=== PATIENT | female | born 1945 | race Caucasian/White ===

== ENCOUNTER 2017-02-20 19:09 | Inpatient (IN) | payer MEDICARE ==
[~2017-02-20] VITALS: Ht 162.6 cm; Wt 63.2 kg
[~2017-02-20 19:09] MED LIST: ALBU0.08 NEB; ASPI81TA82 PO; AZIT250T3 PO; PRED5TAB PO
[2017-02-20 19:11] VITALS: BP 174/86; PULSE 121; RESP 16; TEMP 98.9; O2SAT 96
[2017-02-20 21:15] VITALS: O2SAT 90
[2017-02-20] MEDS ORDERED: SODIUM CHLORIDE 0.9% FLUSH 10 ML FLUSH IVF PRN (21:15)
[2017-02-20 21:17] VITALS: BP 135/70; PULSE 104; RESP 20; O2SAT 95
--- NOTE | 2017-02-20 21:29 | PD ---
HPI Chief Complaint: Respiratory Symptoms Time Seen by Provider: 21:13 Travel History International Travel<30 days: No Contact w/Intl Traveler<30days: No Traveled to known affect area: No History of Present Illness HPI Patient is a 71-year-old female presenting to emergency for evaluation of a cough and shortness of breath. Patient was seen and evaluated at the urgent care center this afternoon and diagnosed with a large left pleural effusion and was advised to be admitted to the hospital at that time. Patient and his signing herself out AMA due to home issue she needed to settle. She presents now to be admitted. She states that her symptoms have been ongoing for 10 days , she denies any fevers but reports occasional nausea and episode of vomiting this morning. She does report feeling short of breath. She did see her primary doctor at the onset of these symptoms and was prescribed antibiotics and an albuterol inhaler. She states she felt better initially but began to feel sick again which is what prompted her visit to the urgent care center today. Patient denies any history of tobacco use, past medical history significant for vertigo and arthritis. PFSH Past Medical History Arthritis: Yes Heart Rhythm Problems: No Cardiac Catheterization: No Cardiovascular Problems: No High Cholesterol: No Congestive Heart Failure: No Diabetes: No Neurologic: Yes (vertigo) Past Surgical History Coronary Artery Bypass Graft: No Social History Alcohol Use: No Tobacco Use: No Substance Use: No Allergies-Medications (Allergen,Severity, Reaction): Coded Allergies: Iodine (Verified Allergy, Severe, Swelling, 02/20/17) Uncoded Allergies: CITRUS (Allergy, Severe, Swelling, 08/31/15) Reported Meds & Prescriptions Reported Meds & Active Scripts Active Reported Aspirin Children's (Aspirin) 81 Mg Chew 81 Mg CHEW DAILY Review of Systems Except as stated in HPI: all other systems reviewed are Neg General / Constitutional: No: Fever, Chills HENT: No: Headaches Cardiovascular: Positive: Dyspnea on exertion, No: Chest Pain or Discomfort Respiratory: Positive: Cough, Shortness of Breath Gastrointestinal: Positive: Nausea, Vomiting (1 episode this morning), No: Diarrhea, Abdominal Pain Genitourinary: No: Dysuria Musculoskeletal: No: Myalgias Neurologic: No: Weakness, Dizziness, Syncope, Focal Abnormalities Physical Exam Narrative GENERAL: Well-developed, well-nourished, alert elderly female. SKIN: Focused skin assessment warm/dry. HEAD: Atraumatic. Normocephalic. EYES: Pupils equal and round. No scleral icterus. No injection or drainage. ENT: No nasal bleeding or discharge. Mucous membranes pink and moist. NECK: Trachea midline. No JVD. CARDIOVASCULAR: Tachycardic. No murmur appreciated. RESPIRATORY: No accessory muscle use. Lungs sounds absent in left upper and lower lung young. GASTROINTESTINAL: Abdomen soft, non-tender, nondistended. Hepatic and splenic margins not palpable. MUSCULOSKELETAL: No obvious deformities. No clubbing. No cyanosis. No edema. NEUROLOGICAL: Awake and alert. No obvious cranial nerve deficits. Motor grossly within normal limits. Normal speech. PSYCHIATRIC: Appropriate mood and affect; insight and judgment normal. Data Data Last Documented VS Vital Signs Date Time Temp Pulse Resp B/P Pulse Ox O2 Delivery O2 Flow Rate FiO2 02/20/17:17 104 20 135/70 95 Nasal Cannula 2 02/20/17 19:11 98.9 Orders Complete Blood Count With Diff (02/20/17 21:05) Comprehensive Metabolic Panel (02/20/17 21:05) Act Partial Throm Time (Ptt) (02/20/17 21:05) Prothrombin Time / Inr (Pt) (02/20/17 21:05) Magnesium (Mg) (02/20/17 21:05) Blood Culture (02/20/17 21:05) Iv Access Insert/Monitor (02/20/17 21:05) Electrocardiogram (02/20/17 21:05) Ecg Monitoring (02/20/17 21:05) Oximetry (02/20/17 21:05) Oxygen Administration (02/20/17 21:05) Sodium Chloride 0.9% Flush (Ns Flush) (02/20/17 21:15) Ct Thorax/ Chest Wo Iv Contras (02/20/17 ) Lactic Acid (02/20/17 21:05) Troponin I (02/20/17 21:05) Ckmb (Isoenzyme) Profile (02/20/17 21:05) Admit Order (Ed Use Only) (02/20/17 22:40) Place In Observation (02/20/17 ) Vital Signs (Adult) Q4H (02/20/17 22:39) Activity Oob With Assistance (02/20/17 22:39) Senior Radiation Protection Technician / Telemetry .CONTINUOUS (02/20/17 22:39) Diet Heart Healthy (02/21/17 Breakfast) Sodium Chloride 0.9% Flush (Ns Flush) (02/20/17 22:45) Sodium Chloride 0.9% Flush (Ns Flush) (02/21/17 09:00) Basic Metabolic Panel (Bmp) (02/21/17 06:00) Complete Blood Count With Diff (02/21/17 06:00) Pt Request For Service (02/20/17 22:39) Case Management Consult (02/20/17 22:39) Naloxone Inj (Narcan Inj) (02/20/17 22:45) Us Guided Thoracentesis (02/20/17 ) Labs Laboratory Tests Test 02/20/17 21:20 White Blood Count 10.6 TH/MM3 Red Blood Count 4.11 MIL/MM3 Hemoglobin 11.7 GM/DL Hematocrit 35.5 % Mean Corpuscular Volume 86.4 FL Mean Corpuscular Hemoglobin 28.5 PG Mean Corpuscular Hemoglobin 32.9 % Concent Red Cell Distribution Width 14.1 % Platelet Count 305 TH/MM3 Mean Platelet Volume 7.7 FL Neutrophils (%) (Auto) 88.2 % Lymphocytes (%) (Auto) 6.3 % Monocytes (%) (Auto) 4.0 % Eosinophils (%) (Auto) 0.8 % Basophils (%) (Auto) 0.7 % Neutrophils # (Auto) 9.4 TH/MM3 Lymphocytes # (Auto) 0.7 TH/MM3 Monocytes # (Auto) 0.4 TH/MM3 Eosinophils # (Auto) 0.1 TH/MM3 Basophils # (Auto) 0.1 TH/MM3 CBC Comment DIFF FINAL Differential Comment Prothrombin Time 11.3 SEC Prothromb Time International 1.0 RATIO Ratio Activated Partial 24.0 SEC Thromboplast Time Sodium Level 138 MEQ/L Potassium Level 4.1 MEQ/L Chloride Level 104 MEQ/L Carbon Dioxide Level 23.8 MEQ/L Anion Gap 10 MEQ/L Blood Urea Nitrogen 20 MG/DL Creatinine 0.74 MG/DL Estimat Glomerular Filtration 77 ML/MIN Rate Random Glucose 145 MG/DL Lactic Acid Level 1.5 mmol/L Calcium Level 8.8 MG/DL Magnesium Level 2.0 MG/DL Total Bilirubin 0.3 MG/DL Aspartate Amino Transf 30 U/L (AST/SGOT) Alanine Aminotransferase 34 U/L (ALT/SGPT) Alkaline Phosphatase 140 U/L Total Creatine Kinase 63 U/L Troponin I 0.13 NG/ML Total Protein 7.3 GM/DL Albumin 3.2 GM/DL MDM Medical Decision Making Medical Screen Exam Complete: Yes Emergency Medical Condition: Yes Medical Record Reviewed: Yes Interpretation(s) Laboratory Tests Test 02/20/17 21:20 White Blood Count 10.6 TH/MM3 Red Blood Count 4.11 MIL/MM3 Hemoglobin 11.7 GM/DL Hematocrit 35.5 % Mean Corpuscular Volume 86.4 FL Mean Corpuscular Hemoglobin 28.5 PG Mean Corpuscular Hemoglobin 32.9 % Concent Red Cell Distribution Width 14.1 % Platelet Count 305 TH/MM3 Mean Platelet Volume 7.7 FL Neutrophils (%) (Auto) 88.2 % Lymphocytes (%) (Auto) 6.3 % Monocytes (%) (Auto) 4.0 % Eosinophils (%) (Auto) 0.8 % Basophils (%) (Auto) 0.7 % Neutrophils # (Auto) 9.4 TH/MM3 Lymphocytes # (Auto) 0.7 TH/MM3 Monocytes # (Auto) 0.4 TH/MM3 Eosinophils # (Auto) 0.1 TH/MM3 Basophils # (Auto) 0.1 TH/MM3 CBC Comment DIFF FINAL Differential Comment Prothrombin Time 11.3 SEC Prothromb Time International 1.0 RATIO Ratio Activated Partial 24.0 SEC Thromboplast Time Sodium Level 138 MEQ/L Potassium Level 4.1 MEQ/L Chloride Level 104 MEQ/L Carbon Dioxide Level 23.8 MEQ/L Anion Gap 10 MEQ/L Blood Urea Nitrogen 20 MG/DL Creatinine 0.74 MG/DL Estimat Glomerular Filtration 77 ML/MIN Rate Random Glucose 145 MG/DL Lactic Acid Level 1.5 mmol/L Calcium Level 8.8 MG/DL Magnesium Level 2.0 MG/DL Total Bilirubin 0.3 MG/DL Aspartate Amino Transf 30 U/L (AST/SGOT) Alanine Aminotransferase 34 U/L (ALT/SGPT) Alkaline Phosphatase 140 U/L Total Creatine Kinase 63 U/L Troponin I 0.13 NG/ML Total Protein 7.3 GM/DL Albumin 3.2 GM/DL Last Impressions Chest CT 02/20/17 0000 Signed Impressions: Service Date/Time: Ambrosio, February 20, 2017 21:32 - CONCLUSION: 1. Large left pleural effusion and left upper lobe and left lower lobe atelectasis. Thoracentesis with reimaging recommended. 2. 6 mm nodule right lower lobe. Lauro Mccabe MD Vital Signs Date Time Temp Pulse Resp B/P Pulse Ox O2 Delivery O2 Flow Rate FiO2 02/20/17 20:03 20 02/20/17 19:11 98.9 121 16 174/86 96 Room Air Differential Diagnosis Pleural effusion versus pneumothorax versus malignancy versus cardiac arrhythmia versus electrolyte abnormality versus other Narrative Course Patient is a 71-year-old female presenting to the emergency department after being evaluated by an urgent care center earlier this afternoon. Patient was diagnosed with large left pleural effusion and was advised to be transferred to the ER at that time however she needs to go home to take care her affairs. She presents at this time with a nonproductive cough that has been ongoing for 10 days initially treated with outpatient antibiotics and albuterol inhaler. She has no significant past medical history, she has never used tobacco products. Labs and imaging ordered and pending. Patient is tachycardic on the monitor. CBC with no elevation in white blood cell count, slight left shift. Lactic acid 1.5 Troponin 0.13 Chemistry is otherwise unremarkable, coags are unremarkable. Patient placed on oxygen via nasal cannula at 2 L, heart rate is 100-104. Patient is resting comfortably in no acute distress. Dr. Patel accepted admission, orders placed. Diagnosis Primary Impression: Pleural effusion, left Additional Impressions: Cough Elevated troponin level Lung nodule seen on imaging study Admitting Information Admitting Physician Requests: Admit Condition: Stable Daniella Lobo February 20, 2017 21:29
--- NOTE | 2017-02-20 21:55 | RADRPT ---
EXAM DATE/TIME: 02/20/2017 21:32 [facility] COMPARISON: No previous studies available for comparison. INDICATIONS : Pleural effusion. RADIATION DOSE: 4.11 CTDIvol (mGy) MEDICAL HISTORY : None SURGICAL HISTORY : None. ENCOUNTER: Initial ACUITY: 1 day PAIN SCALE: 0/10 LOCATION: Bilateral chest TECHNIQUE: Volumetric scanning of the chest was performed. Using automated exposure control and adjustment of t he mA and/or kV according to patient size, radiation dose was kept as low as reasonably achievable to obtain optimal diagnostic quality images. FINDINGS: LUNGS: There is no consolidation or pneumothorax. 6 mm nodule right lower lobe abutting the medial pleura. PLEURAE: Large left pleural effusion. There is no pleural thickening or pleural effusion on the right. MEDIASTINUM: The heart and great vessels demonstrate no acute abnormality. There is no mediastinal or hilar lymph adenopathy. AXILLAE: Within normal limits. No lymphadenopathy. MUSCULOSKELETAL: Within normal limits for patient age. MISCELLANEOUS: The visualized upper abdominal organs demonstrate no acute abnormality. CONCLUSION: 1. Large left pleural effusion and left upper lobe and left lower lobe atelectasis. Thoracentesis wit h reimaging recommended. 2. 6 mm nodule right lower lobe. Lauro Mccabe MD on February 20, 2017 at 21:51 Board Certified Radiologist. This report was verified electronically.
[2017-02-20 21:59] LABS: AUTOMATED NEUTROPHIL # 9.4 TH/MM3 (1.8-7.7); BASOPHIL # 0.1 TH/MM3 (0-0.2); BASOPHIL % 0.7 % (0.0-2.0); EOSINOPHIL # 0.1 TH/MM3 (0-0.4); EOSINOPHIL % 0.8 % (0.0-4.0); HEMATOCRIT 35.5 % (35.0-46.0); HEMO FLAGS DIFF FINAL; LYMPH % 6.3 % (9.0-44.0); LYMPHOCYTE # 0.7 TH/MM3 (1.0-4.8); MEAN CELL VOLUME 86.4 FL (80.0-100.0); MEAN CORPUSCULAR HEMOGLOBIN 28.5 PG (27.0-34.0); MEAN CORPUSCULAR HGB CONC 32.9 % (32.0-36.0); NEUT % 88.2 % (16.0-70.0); PLATELET COUNT 305 TH/MM3 (150-450); PROTHROMBIN TIME - PATIENT 11.3 SEC (9.8-11.6); RED BLOOD COUNT 4.11 MIL/MM3 (4.00-5.30); RED CELL DISTRIBUTION WIDTH 14.1 % (11.6-17.2); WHITE BLOOD COUNT 10.6 TH/MM3 (4.0-11.0)
[2017-02-20 22:00] VITALS: BP 167/83; PULSE 104; RESP 28; O2SAT 93
[2017-02-20] MEDS ORDERED: ASPI81CH7 CHEW (22:00)
[2017-02-20 22:10] LABS: ANION GAP 10 MEQ/L (5-15); AST (GOT) 30 U/L (15-37); BICARBONATE 23.8 MEQ/L (21.0-32.0); BLOOD UREA NITROGEN 20 MG/DL (7-18); CHLORIDE 104 MEQ/L (98-107); GLOMERULAR FILTRATION RATE 77 ML/MIN (>89); POTASSIUM 4.1 MEQ/L (3.5-5.1); SODIUM (NA) 138 MEQ/L (136-145)
[2017-02-20 22:15] LABS: ALKALINE PHOSPHATASE 140 U/L (45-117); ALT (GPT) 34 U/L (10-53); TOTAL BILIRUBIN ADULT 0.3 MG/DL (0.2-1.0)
[2017-02-20 22:23] LABS: CREATINE KINASE 63 U/L (26-192)
[2017-02-20] MEDS ORDERED: SODIUM CHLORIDE 0.9% FLUSH 10 ML FLUSH IV FLUSH PRN (22:45)
[2017-02-20] MEDS ORDERED: NALOXONE HCL 0.4 MG/ML AMP IV PRN (22:45)
[2017-02-20 23:00] VITALS: BP 136/73; PULSE 97; RESP 18; O2SAT 93
[2017-02-21] VITALS (18 sets, daily range): BP systolic 93–165; BP diastolic 55–78; PULSE 81–116; RESP 16–25; TEMP 97.8–99; O2SAT 88–98
--- NOTE | 2017-02-21 02:50 | HHI.HP ---
HPI Service [facility] Hospitalists Primary Care Physician Jose Ansari MD Admission Diagnosis LEFT PLEURAL EFFUSION Diagnoses: Chief Complaint: Cough Travel History International Travel<30 Days: No Contact w/Intl Traveler <30 Da: No Traveled to Known Affected Are: No History of Present Illness History from patient, ER physician communication, and review of medical records. Patient reported that about 10 days ago, she started coughing and not feeling well. She reports that she was also sneezing with nasal discharge which she thought was allergies. She stated she went to her doctor and was given antibiotics azithromycin. She was also given steroids. States he felt slightly better but yesterday, the cough and shortness of rest has gotten extremely worse. She stated she went to the urgent care of [place]. Over there, she had a chest x-ray done. She was told from there to come immediately to the hospital because of the chest x-ray findings. Exam patient denies fever. denies sputum production. She does however report that she was having some nausea medicines because every time she eats something, she felt like throwing up. Denies any asymmetric leg swelling. She states that last night though, her symptoms were so terrible that she had to sit up in bed to sleep. 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 While lying onto her right side, patient is quite comfortable and able to talk. However as soon as she gets up, she is constantly coughing in the middle of her sentences. She was also noted to be short of breath during these episodes. SKIN: No rashes, ecchymoses or lesions. Cool and dry. HEAD: Atraumatic. Normocephalic. No temporal or scalp tenderness. EYES: No scleral icterus. No injection or drainage. ENT: Nose without bleeding, purulent drainage or septal hematoma. Airway patent. NECK: Trachea midline. No JVD Supple, nontender, no meningeal signs. CARDIOVASCULAR: Regular rate and rhythm without murmurs, gallops, or rubs. RESPIRATORY: Clear to auscultation. Breath sounds equal bilaterally. No wheezes , rales, or rhonchi. GASTROINTESTINAL: Abdomen soft, non-tender, nondistended. No guarding. MUSCULOSKELETAL: Extremities without clubbing, cyanosis, or edema. No calf tenderness. NEUROLOGICAL: Awake and alert. Motor and sensory grossly within normal limits Normal speech. Laboratory Laboratory Tests Test 02/20/17 21:20 White Blood Count 10.6 Red Blood Count 4.11 Hemoglobin 11.7 Hematocrit 35.5 Mean Corpuscular Volume 86.4 Mean Corpuscular Hemoglobin 28.5 Mean Corpuscular Hemoglobin 32.9 Concent Red Cell Distribution Width 14.1 Platelet Count 305 Mean Platelet Volume 7.7 Neutrophils (%) (Auto) 88.2 Lymphocytes (%) (Auto) 6.3 Monocytes (%) (Auto) 4.0 Eosinophils (%) (Auto) 0.8 Basophils (%) (Auto) 0.7 Neutrophils # (Auto) 9.4 Lymphocytes # (Auto) 0.7 Monocytes # (Auto) 0.4 Eosinophils # (Auto) 0.1 Basophils # (Auto) 0.1 CBC Comment DIFF FINAL Differential Comment Prothrombin Time 11.3 Prothromb Time International 1.0 Ratio Activated Partial 24.0 Thromboplast Time Sodium Level 138 Potassium Level 4.1 Chloride Level 104 Carbon Dioxide Level 23.8 Anion Gap 10 Blood Urea Nitrogen 20 Creatinine 0.74 Estimat Glomerular Filtration 77 Rate Random Glucose 145 Lactic Acid Level 1.5 Calcium Level 8.8 Magnesium Level 2.0 Total Bilirubin 0.3 Aspartate Amino Transf 30 (AST/SGOT) Alanine Aminotransferase 34 (ALT/SGPT) Alkaline Phosphatase 140 Total Creatine Kinase 63 Troponin I 0.13 Total Protein 7.3 Albumin 3.2 Date/Time Procedure Status Source Growth 02/20/17 21:25 Aerobic Blood Culture Received Blood Peripheral Pending 02/20/17 21:25 Anaerobic Blood Culture Received Blood Peripheral Pending Result Diagram: 02/20/17211902/20/172119 Imaging Last [address] 02/20/17 0000 Signed Impressions: Service Date/Time: Monday, February 20, 2017 21:32 - CONCLUSION: 1. Large left pleural effusion and left upper lobe and left lower lobe atelectasis. Thoracentesis with reimaging recommended. 2. 6 mm nodule right lower lobe. Lauro Mccabe MD Assessment and Plan Assessment and Plan Impression: Large left pleural effusion Dyspneasecondary to above Elevated troponinlikely due to dyspnea. Patient denies any chest pain. Incidental finding of 6 mm lung nodule. Outpatient follow-up closely particularly with this large pleural effusion History of vertigo Mister arthritis History of allergy/bronchitis "all my life" Plan: Oxygen supplementation. Planned ultrasound guided thoracocentesis in a.m. We'll send pleural fluid for diagnostic purposes well. Including cytology and cultures. Hold aspirin due to upcoming procedure. We'll need to resume it by tomorrow. DVT prophylaxiswith SCD. Discussed Condition With Patient, ER physician, patient's nurse Fantasma Patel MD February 21, 2017 02:50
[2017-02-21 07:57] LABS: AUTOMATED NEUTROPHIL # 5.4 TH/MM3 (1.8-7.7); BASOPHIL # 0.1 TH/MM3 (0-0.2); BASOPHIL % 1.1 % (0.0-2.0); EOSINOPHIL # 0.4 TH/MM3 (0-0.4); EOSINOPHIL % 5.6 % (0.0-4.0); HEMATOCRIT 31.6 % (35.0-46.0); HEMO FLAGS DIFF FINAL; LYMPH % 12.7 % (9.0-44.0); LYMPHOCYTE # 0.9 TH/MM3 (1.0-4.8); MEAN CELL VOLUME 86.5 FL (80.0-100.0); MEAN CORPUSCULAR HEMOGLOBIN 28.3 PG (27.0-34.0); MEAN CORPUSCULAR HGB CONC 32.8 % (32.0-36.0); MONO % 7.5 % (0.0-8.0); NEUT % 73.1 % (16.0-70.0); PLATELET COUNT 274 TH/MM3 (150-450); RED BLOOD COUNT 3.66 MIL/MM3 (4.00-5.30); WHITE BLOOD COUNT 7.3 TH/MM3 (4.0-11.0)
[2017-02-21 08:03] LABS: BICARBONATE 23.7 MEQ/L (21.0-32.0); POTASSIUM 3.8 MEQ/L (3.5-5.1)
[2017-02-21] MEDS ORDERED: SODIUM CHLORIDE 0.9% FLUSH 10 ML FLUSH IV FLUSH SCH (09:00)
--- NOTE | 2017-02-21 10:06 | RADRPT ---
EXAM DATE/TIME: 02/21/2017 09:40 [facility] COMPARISON: CHEST PA & LAT, February 20, 2017, 17:06. INDICATIONS : Post left thoracentesis. MEDICAL HISTORY : None. SURGICAL HISTORY : None. ENCOUNTER: Subsequent ACUITY: 1 day PAIN SCORE: 0/10 LOCATION: Bilateral chest FINDINGS: A single frontal expiratory view of the chest was performed. Left upper lobe airspace disease. Left b asilar consolidation/atelectasis. Right lung clear. No evidence of pneumothorax. Mediastinal struct ures are in the midline. Left-sided pleural effusion has been evacuated. The cardio-mediastinal contours and bronchopulmonary markings are unremarkable for an expiratory exam . Osseous structures are intact. CONCLUSION: 1. No pneumothorax status post left-sided thoracentesis. 2. Left upper lobe airspace disease. 3. Left basilar atelectasis. Lauro Mccabe MD on February 21, 2017 at 10:03 Board Certified Radiologist. This report was verified electronically.
[2017-02-21] MEDS ORDERED: ACETAMINOPHEN 325 MG TAB PO PRN ×2 (11:00)
[2017-02-21] MEDS ORDERED: MAGNESIUM HYDROXIDE SUSP 30 ML CUP PO PRN (11:00)
[2017-02-21] MEDS ORDERED: SODIUM CHLORIDE 0.9% FLUSH 10 ML FLUSH IV FLUSH PRN (11:00)
[2017-02-21 11:01] LABS: PLEURAL FLUID LYMPHS 66 %
[2017-02-21] MEDS: ONDANSETRON HCL 4 MG/2 ML VIAL IVP PRN (11:36)
[2017-02-21] MEDS ORDERED: RESP: ALBUTEROL 2.5 MG/IPRATROPIUM 0.5 MG NEB (PRN) NEB (12:00)
[2017-02-21 12:09] LABS: BLOOD GAS BASE EXCESS -4.3 mmol/L (-2-2); BLOOD GAS CARBOXYHEMOGLOBIN 1.3 % (0-4); BLOOD GAS HCO3 19 mmol/L (22-26); BLOOD GAS METHEMOGLOBIN 0.6 % (0-2); BLOOD GAS O2 HGB SATURATION 93 % (90-100); BLOOD GAS OXYGEN CONTENT 17.3 Vol % (12.0-20.0); BLOOD GAS PCO2 30 mmHg (38-42); BLOOD GAS PO2 70 mmHG (61-120); BLOOD GAS TOTAL HGB 13.3 G/DL (12.0-16.0); CRITICAL VALUE NO; DRAW SITE RT RADIAL; LITER FLOW 6 L/M; NUMBER OF ARTERIAL PUNCTURES 1; OXYGEN DEVICE SIMPLE MASK; STAT YES; TEMP CORR TO 98.6; ULNAR PULSE PRESENT
--- NOTE | 2017-02-21 12:14 | HHI.PR ---
Subjective Remarks Follow-up for pleural effusion and shortness of breath. The patient states that she had been feeling short of breath with pressure on her chest. She had thoracentesis done today. She feels that the chest pressure was significantly improved after thoracentesis. However since the thoracentesis, she is reporting increased work in breathing. O2 saturation was 88% on 4 L O2. Discuss[address] with Dr. Alejo, RN, RT, and [facility] nurse, the plan to transfer to [facility] on BiPAP. Objective Vitals Vital Signs Date Time Temp Pulse Resp B/P Pulse Ox O2 Delivery O2 Flow Rate FiO2 02/21/17 11:35 99.0 116 20 107/72 88 02/21/17 10:55 95 Nasal Cannula 3.00 02/21/17 10:25 99 20 162/69 96 02/21/17 10:10 101 16 165/78 96 02/21/17 09:55 98.6 97 16 145/72 96 02/21/17 09:00 98.0 97 20 130/75 93 02/21/17 08:10 81 02/21/17 07:04 98.4 85 18 118/70 91 02/21/17 04:25 97.8 98 17 139/78 94 02/21/17 01:53 110 02/21/17 01:41 97.9 109 18 152/72 96 02/20/17 23:00 97 18 136/73 93 Room Air 02/20/17 22:00 104 28 167/83 93 Room Air 02/20/17 21:17 104 20 135/70 95 Nasal Cannula 2 02/20/17 21:15 90 Room Air 02/20/17 21:15 95 Nasal Cannula 2 02/20/17 20:03 20 02/20/17 19:11 98.9 121 16 174/86 96 Room Air Result Diagram: 02/21/17 0715 02/21/17 0715 Imaging Last Impressions Chest X-Ray 02/21/17 0000 Signed Impressions: Service Date/Time: Tuesday, February 21, 2017 09:40 - CONCLUSION: 1. No pneumothorax status post left-sided thoracentesis. 2. Left upper lobe airspace disease. 3. Left basilar atelectasis. Lauro Mccabe MD Chest CT 02/20/17 0000 Signed Impressions: Service Date/Time: Monday, February 20, 2017 21:32 - CONCLUSION: 1. Large left pleural effusion and left upper lobe and left lower lobe atelectasis. Thoracentesis with reimaging recommended. 2. 6 mm nodule right lower lobe. Lauro Mccabe MD Objective Remarks GENERAL: Well-developed well-nourished. In mild acute distress. Mildly labored breathing. SKIN: Warm and dry. No lesions noted. HEENT: Normocephalic. Pupils equal and round. Mucous membranes pink and moist. CARDIOVASCULAR: Regular rate and rhythm. No murmur appreciated. RESPIRATORY: Clear to auscultation on the right. Coarse crackles in left lung base. GASTROINTESTINAL: Abdomen soft, non-tender, nondistended. Bowel sounds x4. MUSCULOSKELETAL: No obvious deformities. No clubbing or cyanosis. No edema. NEUROLOGICAL: Awake and alert. No focal neurological deficits. Moves upper and lower extremities spontaneously. Normal speech. PSYCHIATRIC: Appropriate mood and affect; insight and judgment normal. A/P Assessment and Plan 71-year-old female with no significant past medical history who presented for shortness breath and pleural effusion diagnosed at outpatient urgent care Pleural effusion Shortness of breath Acute respiratory failure Imaging personally reviewed: Initial chest CT showed large left pleural effusion. Chest x-ray after thoracentesis showed left-sided atelectasis with no pneumothorax. Stat Chest x-ray during respiratory distress shows increasing edema on the left. Labs reviewed: No leukocytosis. Lactic acid 1.5. Pleural fluid with 2000 WBCs , 9000 RBCs, LDH 1000. -Consulted pulmonology -BiPAP for edema. Supplemental oxygen as needed. -Check d-dimer, BNP, serum LDH, ABG -Check echo -Nebs as needed -Acapella and incentive spirometry -Follow up further fluid studies, cultures, cytology Elevated troponin: 0.13, 0.09, trending. EKG reviewed with no ischemic changes. Nonspecific, possibly secondary to shortness of breath as above. Monitor on telemetry. DVT prophylaxis: SCDs Attending Statement The exam, history, and the medical decision-making described in the above note were completed with the assistance of the mid-level provider. I reviewed and agree with the findings presented. I attest that I had a [id number] encounter with the patient on the same day, and personally performed and documented my assessment and findings in the medical record. patient seen 02/21/17 around 4 PM. She says she is feeling better, shortness of breath improving. Crackles on the left lung. Reexpansion pulmonary edema. Suspected pulmonary embolism appreciate pulmonary assistance. Close monitoring in ICU. Jan Weems February 21, 2017 12:14 Ari Alejo MD February 22, 2017 08:50
--- NOTE | 2017-02-21 12:43 | RADRPT ---
EXAM DATE/TIME: 02/21/2017 12:00 [facility] COMPARISON: CHEST EXPIRATION ONLY, February 21, 2017, 9:40. INDICATIONS : Post left side thoracentesis, short of breath. MEDICAL HISTORY : None. SURGICAL HISTORY : None. ENCOUNTER: Initial ACUITY: 1 day PAIN SCORE: 0/10 LOCATION: Bilateral chest FINDINGS: A single view of the chest demonstrates extensive consolidation throughout the left lung. No pneumoth orax. Heart normal size. Osseous structures are intact. CONCLUSION: Extensive left lung consolidation. Lauro Mccabe MD on February 21, 2017 at 12:40 Board Certified Radiologist. This report was verified electronically.
--- NOTE | 2017-02-21 13:37 | EKG ---
Date Performed: 02/20/2017 Time Performed: 21:42:42 PTAGE: 71 years EKG: Sinus rhythm NONSPECIFIC T-WAVE ABNORMALITY BORDERLINE ECG PREVIOUS TRACING : 08/31/2015 16.19 Compared to prior tracing no significant change DOCTOR: Jose Mendoza Interpretating Date/Time 02/21/2017 13:35:42
--- NOTE | 2017-02-21 15:24 | RADRPT ---
EXAM DATE/TIME: 02/21/2017 08:21 [facility] COMPARISON: No previous studies available for comparison. INDICATIONS : Pleural effusion. MEDICAL HISTORY : Arthritis. Vertigo. SURGICAL HISTORY : Appendectomy. Tonsillectomy. ENCOUNTER: Initial ACUITY: 2 weeks PAIN SCORE: 0/10 LOCATION: Left chest FLUID: Total volume of 3000 cc of cloudy, red fluid was removed. Fluid was sent to lab for ordered studies. TECHNIQUE: 1. Ultrasound guidance for thoracentesis. 2. Thoracentesis. The risks, benefits, and alternatives to ultrasound guided thoracentesis were explained to the patien t in lay simple terms, including the risk of bleeding and infection. Written and verbal informed con sent was obtained. Appropriate area for thoracentesis was marked under ultrasound guidance with the patient in the uprig ht position. Overlying skin was prepped and draped in the usual sterile fashion and with local anest hetic, a dermatotomy was made with an 11 blade scalpel. A 6 Yoruba thoracentesis catheter was placed in the pleural space and fluid was removed. Catheter was then removed and a sterile dressing applie d. There were no immediate complications. The patient tolerated the procedure well and the left the ultrasound suite in stable condition. Chest radiograph is to be obtained. CONCLUSION: Uncomplicated ultrasound guided thoracentesis. Lauro Mccabe MD on February 21, 2017 at 15:22 Board Certified Radiologist. This report was verified electronically.
[2017-02-21] MEDS: HEPARIN-D5W INJ 250 ML IV SCH (15:26)
[2017-02-21] MEDS ORDERED: CHLORHEXIDINE GLUCONATE 2 % 1 PACK (2 CLOTHS)(extra cloths) TOPICAL PRN (15:30)
[2017-02-21 15:44] LABS: HEMATOCRIT 38.8 % (35.0-46.0); MEAN CELL VOLUME 85.7 FL (80.0-100.0); MEAN CORPUSCULAR HEMOGLOBIN 28.3 PG (27.0-34.0); MEAN CORPUSCULAR HGB CONC 33.1 % (32.0-36.0); PLATELET COUNT 313 TH/MM3 (150-450); RED BLOOD COUNT 4.52 MIL/MM3 (4.00-5.30); RED CELL DISTRIBUTION WIDTH 14.2 % (11.6-17.2); REVIEW FLAG FINAL; WHITE BLOOD COUNT 17.8 TH/MM3 (4.0-11.0)
[2017-02-21 15:55] LABS: APTT (PATIENT) 23.4 SEC (24.3-30.1); INTERNATIONAL NORMALIZED RATIO 1.1 RATIO; PROTHROMBIN TIME - PATIENT 11.7 SEC (9.8-11.6)
[2017-02-21 17:03] LABS: BLOOD GAS BASE EXCESS -3.7 mmol/L (-2-2); BLOOD GAS CARBOXYHEMOGLOBIN 1.5 % (0-4); BLOOD GAS HCO3 20 mmol/L (22-26); BLOOD GAS METHEMOGLOBIN 1.2 % (0-2); BLOOD GAS O2 HGB SATURATION 92 % (90-100); BLOOD GAS OXYGEN CONTENT 16.5 Vol % (12.0-20.0); BLOOD GAS PCO2 33 mmHg (38-42); BLOOD GAS PO2 74 mmHg (61-120); BLOOD GAS TOTAL HGB 12.8 G/DL (12.0-16.0); CRITICAL VALUE NO; DRAW SITE RT RADIAL; LITER FLOW 5 L/M; NUMBER OF ARTERIAL PUNCTURES 1; OXYGEN DEVICE NASAL CANNULA; STAT YES; TEMP CORR TO 98.6; ULNAR PULSE PRESENT
--- NOTE | 2017-02-21 20:00 | EC ---
Study Study Date:02/21/2017 STUDY CONCLUSIONS SUMMARY - Left ventricle: The cavity size was normal. Wall thickness was normal. Systolic function was vigorous. The estimated ejection fraction was in the range of 65% to 70%. Wall motion was normal; there were no regional wall motion abnormalities. - Aortic valve: Valve area: 2.73cm^2(VTI). Valve area: 2.87cm^2 (Vmax). If LV function is below 40, please consider prescribing an ACEI or ARB or document rationale for non-use. PROCEDURE DATA STUDY STATUS: Elective. Procedure: Transthoracic echocardiography. Image quality was poor. Scanning was performed from the parasternal, apical, and subcostal acoustic windows. Study completion: The patient tolerated the procedure well. Transthoracic echocardiography. M-mode, complete 2D, complete spectral Doppler, and color Doppler. Height: Height: 64in. Weight: Weight: 142.7lb. Body mass index: BMI: 24.5kg/m^2. Body surface area: BSA: 1.7m^2. Patient status: Inpatient. CARDIAC ANATOMY LEFT VENTRICLE: The cavity size was normal. Wall thickness was normal. Systolic function was vigorous. The estimated ejection fraction was in the range of 65% to 70%. Wall motion was normal; there were no regional wall motion abnormalities. AORTIC VALVE: Trileaflet; normal thickness leaflets. Doppler: Transvalvular velocity was within the normal range. There was no stenosis. No regurgitation. Valve area: 2.73cm^2(VTI). Indexed valve area: 1.61cm^2/m^2 (VTI). Valve area: 2.87cm^2 (Vmax). Indexed valve area: 1.69cm^2/m^2 (Vmax). Mean gradient: 2mm Hg (S). AORTA: Aortic root: The aortic root was normal in size. MITRAL VALVE: Structurally normal valve. Doppler: Transvalvular velocity was within the normal range. There was no evidence for stenosis. Trace regurgitation. LEFT ATRIUM: The atrium was normal in size. RIGHT VENTRICLE: The cavity size was normal. Wall thickness was normal. PULMONIC VALVE: Doppler: Transvalvular velocity was within the normal range. There was no evidence for stenosis. No regurgitation. TRICUSPID VALVE: Structurally normal valve. Doppler: Transvalvular velocity was within the normal range. No regurgitation. PULMONARY ARTERY: The main pulmonary artery was normal-sized. Systolic pressure was within the normal range. RIGHT ATRIUM: The atrium was normal in size. PERICARDIUM: There was no pericardial effusion. SYSTEMIC VEINS: Inferior vena cava: The vessel was normal in size. Patient weight: 142.7lb _Ejection fraction:_ 65-75% _Fractional shortening:_ 32% up to 5Kg 5-11.5Kg 11.6-22.9Kg 23-45Kg 45-57Kg Aortic Root 7-13 <17 13-22 17-27 17-27 LA diam 6-13 <23 24-38 33-47 37-40 RVID 10-17 7-15 7-15 7-18 8-17 LVIDd 12-22 <32 24-38 33-47 37-40 LVPW 2-4 3-6 5-7 6-8 7-8 IVS 2-4 3-6 5-7 6-8 7-8 BASIC MEASUREMENTS ADULT NORMAL Left ventricle LV internal dimension, ED, chordal *32.6 mm 43-52 level, PLAX LV internal dimension, ES, chordal *20.6 mm 23-38 level, PLAX Fractional shortening, chordal level, 37 % >29 PLAX LV posterior wall thickness, ED 9.93 mm IVS/LVPW ratio, ED 1 <1.3 Ventricular septum Septal thickness, ED 9.9 mm Aortic valve Leaflet separation 19 mm 15-26 Aorta Root diameter, ED 25 mm Left atrium Anterior-posterior dimension 22 mm Anterior-posterior dimension index 1.29 cm/m^2 <2.2 BASIC MEASUREMENTS ADULT NORMAL Aortic valve Leaflet separation 19 mm 15-26 DOPPLER MEASUREMENTS ADULT NORMAL Main pulmonary artery Pressure, S 30 mm Hg =30 Aortic valve Peak velocity, S 82.7 cm/s Mean velocity, S 62.7 cm/s VTI, S 13 cm Mean gradient, S 2 mm Hg Valve area, VTI 2.73 cm^2 Valve area index, VTI 1.61 cm^2/m^2 Valve area, Vmax 2.87 cm^2 Valve area index, Vmax 1.69 cm^2/m^2 Mitral valve Peak E-wave velocity 28.2 cm/s Peak A-wave velocity 78 cm/s Peak E/A ratio 0.4 Tricuspid valve Regurgitant peak velocity 236 cm/s Peak RV-RA gradient, S 22 mm Hg Maximal regurgitant velocity 236 cm/s Systemic veins Estimated CVP 10 mm Hg Right ventricle RV pressure, S *32 mm Hg <30 Pulmonic valve Peak velocity, S 72.9 cm/s LEGEND: Mean values are shown as u=mean value. Asterisk (*) bell values outside specified normal range. Prepared and signed by Diamond Mosley [id number]
[2017-02-21] MEDS: VANCOMYCIN INJ 1,000 MG in SODIUM CHLOR 0.9% 250 ML INJ 250 ML IV SCH (20:25)
[2017-02-21] MEDS: PIPERACIL-TAZO 3.375 GM PREMIX 50 ML IV SCH (20:26)
[2017-02-21] MEDS: SODIUM CHLORIDE 0.9% FLUSH 10 ML FLUSH IV FLUSH SCH (20:26)
[2017-02-21] MEDS: predniSONE 50 MG TAB PO SCH (20:26)
[2017-02-21 22:05] LABS: APTT (PATIENT) 29.3 SEC (24.3-30.1)
--- NOTE | 2017-02-21 23:30 | RADRPT ---
EXAM DATE/TIME: 02/21/2017 22:54 [facility] COMPARISON: No previous studies available for comparison. INDICATIONS : Bilateral leg swelling. MEDICAL HISTORY : Arthritis. Vertigo. Pleural effusion. Shortness of breath. SURGICAL HISTORY : Appendectomy.Tonsillectomy. ENCOUNTER: Initial ACUITY: 1 day PAIN SCORE: 0/10 LOCATION: Bilateral legs. TECHNIQUE: Venous ultrasound of the left and right leg was performed from the inguinal ligament to the proximal calf. Real-time, color Doppler and spectral tracing, compression and augmentation techniques were us ed. FINDINGS: RIGHT LEG: There is normal compressibility of the deep venous system from the inguinal region to the proximal ca lf. No echogenic clot is seen in the lumen of the common femoral, femoral, popliteal, and posterior tibial veins. There is a normal response of the venous system to proximal and distal augmentation an d respiration. LEFT LEG: There is normal compressibility of the deep venous system from the inguinal region to the proximal ca lf. No echogenic clot is seen in the lumen of the common femoral, femoral, popliteal, and posterior tibial veins. There is a normal response of the venous system to proximal and distal augmentation an d respiration. CONCLUSION: No evidence of deep venous thrombosis. Hernan Moncada MD on February 21, 2017 at 23:27 Board Certified Radiologist. This report was verified electronically.
[2017-02-22] VITALS (14 sets, daily range): BP systolic 102–125; BP diastolic 54–74; PULSE 60–98; RESP 20–26; TEMP 97.6–98.3; O2SAT 96–97
[2017-02-22] MEDS: PIPERACIL-TAZO 3.375 GM PREMIX 50 ML IV SCH ×4 (02:21→19:52)
[2017-02-22] MEDS: predniSONE 50 MG TAB PO SCH ×2 (02:21→08:09)
[2017-02-22] MEDS: CHLORHEXIDINE GLUCONATE 2 % 1 PACK (2 CLOTHS)(taper/protocol) TOPICAL SCH (04:00)
[2017-02-22 05:12] LABS: APTT (PATIENT) 65.4 SEC (24.3-30.1)
[2017-02-22] MEDS ORDERED: diphenhydrAMINE HCL 50 MG CAP PO ONE (08:00)
[2017-02-22] MEDS: VANCOMYCIN INJ 1,000 MG in SODIUM CHLOR 0.9% 250 ML INJ 250 ML IV SCH ×2 (08:00→19:52)
[2017-02-22] MEDS: SODIUM CHLORIDE 0.9% FLUSH 10 ML FLUSH IV FLUSH SCH ×2 (08:09→19:53)
[2017-02-22] MEDS ORDERED: IOHEXOL 350 MG/ML 10 ML VIAL (for RAD DIAG) IV ONE (09:49)
--- NOTE | 2017-02-22 09:54 | MB ---
cc: ROMI TORRES MD DATE OF CONSULTATION 02/21/[address] Alejo. REASON FOR CONSULTATION Evaluate for pneumonia and pleural effusion. HISTORY OF THE PRESENT ILLNESS Ms. Cross is a pleasant 71-year-old female who has not been feeling well for the last two month or so. She attributes it to her cough, cold and allergy. She says she is very prone to allergies but over the last ten days she was having cough and congestion. Started bringing up small amounts of sputum. She saw her physician Dr. Ansari and was given Z-Salazar. She did feel a little bit better with the steroids and antibiotics but over the last two days she is getting much worse. More congestion, more short of breath. Did not have any fever. With these symptoms she came to the hospital. She had a workup done. She had a CT scan of the chest done which showed a large pleural effusion with left lower lobe atelectasis and possible infiltrate. LABORATORY DATA Her CBC showed WBC count 17.8, hemoglobin 12.8, hematocrit 38.8, MCV 85, platelet count 313. Her INR is 1.2. Her sodium 138, potassium 3.8, chloride 106, CO2 23, BUN 20, creatinine 0.60. Blood gas pH 7.40, pCO2 33, PCO2 74, bicarb 20. Saturation 92% on 5 liters nasal cannula. Her blood culture is negative. She went for an ultrasound-guided thoracentesis. Her pleural fluid is exudate in nature with protein 5.0 and LDH 1083. Gram stain of the pleural fluid is negative so far. PAST MEDICAL HISTORY Her past medical history is significant for: 1. History of allergies. 2. Arthritis. 3. Vertigo. 4. Tonsillectomy. 5. And appendectomy. MEDICATIONS She is currently takin. Benadryl 50 mg. 2. Prednisone 50 mg q.6-hour. 3. Albuterol/Atrovent nebulizer treatment. ALLERGIES SHE IS ALLERGIC TO CITRUS AND IODINE. SOCIAL HISTORY She is a . 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 No history of smoking or alcohol abuse. FAMILY HISTORY She has one son. REVIEW OF SYSTEMS Normally she is up, around and active. Weight is stable. No headache or dizziness. No hemoptysis. No DVT or pulmonary embolism. No malignancy. PHYSICAL EXAMINATION GENERAL: Reveals a pleasant elderly female not in acute distress. VITAL SIGNS: Blood pressure 93/55, heart rate 103, respirations 20, temperature 97.8. HEENT: Pupils are equal and reactive to light. Oral mucosa, nasal mucosa normal. NECK: Supple. JVP not raised. CHEST: She has slightly decreased breath sounds on the right side. Has a few rales. CARDIOVASCULAR: S1, S2 normal. ABDOMEN: Benign. EXTREMITIES: No edema. IMPRESSION 1. Large right pleural effusion, likely parapneumonic. She has exudative pleural effusion, culture so far negative. 2. Lung infiltrate. 3. Atelectasis. 4. Rhinitis. PLAN I discussed with the patient we will check a pleural fluid culture and cytology. In the meantime we will start her on IV Zosyn and vancomycin pending the cultures. Supplement her oxygen to keep her saturation greater than 92%. Further treatment will depend on the course in the hospital. Thank you Dr. Alejo for this consultation. MD CORINE Power/ELADIO /7:37 PM /9:50 AM
--- NOTE | 2017-02-22 10:42 | RADRPT ---
EXAM DATE/TIME: 02/22/2017 09:31 [facility] COMPARISON: CT THORAX W/O CONTRAST, February 20, 2017, 21:32. INDICATIONS : Shortness of breath. IV CONTRAST: 85 cc Omnipaque 350 (iohexol) IV RADIATION DOSE: 23.03 CTDIvol (mGy) MEDICAL HISTORY : None SURGICAL HISTORY : Appendectomy. ENCOUNTER: Initial ACUITY: 1 day PAIN SCALE: 0/10 LOCATION: chest TECHNIQUE: Volumetric scanning of the chest was performed using a pulmonary embolism protocol MIP images were re constructed. Using automated exposure control and adjustment of the mA and/or kV according to patien t size, radiation dose was kept as low as reasonably achievable to obtain optimal diagnostic quality images. FINDINGS: Patchy airspace disease is present in the left lung ; better visualized following thoracentesis. Tra ce fluid remains. There is no axillary adenopathy. There is very minimal nonspecific mediastinal adenopathy There is no evidence for central pulmonary emboli. There is increasing ascites The portion of the liver and spleen identified are free of focal defects CONCLUSION: Significant airspace disease in the left lung, probably inflammatory. Neoplastic pro cess is also consideration. There is no evidence of central pulmonary emboli. Avery Nolan MD FACR on February 22, 2017 at 10:15 Board Certified Radiologist. This report was verified electronically.
[2017-02-22 11:14] LABS: APTT (PATIENT) 59.1 SEC (24.3-30.1)
[2017-02-22] MEDS: HEPARIN-D5W INJ 250 ML IV SCH (13:06)
--- NOTE | 2017-02-22 14:35 | HHI.PR ---
Subjective Remarks Follow-up for pulmonary edema. Patient denies any chest pain. She continues to complain of a "little" shortness of breath. She reports a cough with clear yellow sputum. She had a small bowel movement. She wants to eat lunch. Objective Vitals Vital Signs Date Time Temp Pulse Resp B/P Pulse Ox O2 Delivery O2 Flow Rate FiO2 02/22/17 14:00 63 02/22/17 12:00 60 02/22/17 12:00 98.3 60 20 97 02/22/17 11:00 97 Nasal Cannula 4.00 02/22/17 10:00 76 02/22/17 08:00 66 02/22/17 08:00 97.6 66 20 108/63 97 02/22/17 06:00 81 02/22/17 04:00 98.0 79 102/62 96 02/22/17 04:00 79 02/22/17 02:00 81 02/22/17 00:00 87 02/22/17 00:00 98.1 87 125/59 97 02/21/17 22:00 94 02/21/17 20:03 95 Nasal Cannula 4.00 02/21/17 20:00 98.3 109 113/66 97 02/21/17 20:00 109 02/21/17 18:00 100 02/21/17 16:06 98 Simple Mask 7.00 02/21/17 16:00 97.8 103 25 93/55 98 02/21/17 16:00 103 I/O 02/21/17 02/21/17 02/21/17 02/22/17 02/22/17 02/22/17 07:00 15:00 23:00 07:00 15:00 23:00 Intake Total 5277 ml 565 ml 397 ml Output Total 300 ml 300 ml 350 ml Balance 4977 ml 265 ml 47 ml Intake Oral 4880 ml 400 ml 200 ml IV Total 397 ml 165 ml 197 ml Output Urine Total 300 ml 300 ml 350 ml Result Diagram: 02/21/17 1510 02/21/17 [address] Angiography 02/22/17 0000 Signed Impressions: Service Date/Time: Wednesday, February 22, 2017 09:31 - CONCLUSION: Significant airspace disease in the left lung, probably inflammatory. Neoplastic process is also consideration. There is no evidence of central pulmonary emboli. Avery Nolan MD FACR Thoracentesis Ultrasound 02/21/17 0000 Signed Impressions: Service Date/Time: Tuesday, February 21, 2017 08:21 - CONCLUSION: Uncomplicated ultrasound guided thoracentesis. Lauro Mccabe MD Lower Extremity Ultrasound 02/21/17 Signed Impressions: Service Date/Time: Tuesday, February 21, 2017 22:54 - CONCLUSION: No evidence of deep venous thrombosis. Hernan Moncada MD Chest X-Ray 02/21/17 Signed Impressions: Service Date/Time: Tuesday, February 21, 2017 12:00 - CONCLUSION: Extensive left lung consolidation. Lauro Mccabe MD Chest CT 02/20/17 Signed Impressions: Service Date/Time: Monday, February 20, 2017 21:32 - CONCLUSION: 1. Large left pleural effusion and left upper lobe and left lower lobe atelectasis. Thoracentesis with reimaging recommended. 2. 6 mm nodule right lower lobe. Lauro Mccabe MD Objective Remarks GENERAL: Well-developed well-nourished. In no acute distress. SKIN: Warm and dry. No lesions noted. HEENT: Normocephalic. Pupils equal and round. Mucous membranes pink and moist. CARDIOVASCULAR: Regular rate and rhythm. No murmur appreciated. RESPIRATORY: No accessory muscle use. Left basilar crackles. GASTROINTESTINAL: Abdomen soft, non-tender, nondistended. Bowel sounds x4. MUSCULOSKELETAL: No obvious deformities. No clubbing or cyanosis. No edema. NEUROLOGICAL: Awake and alert. No focal neurological deficits. Moves upper and lower extremities spontaneously. Normal speech. PSYCHIATRIC: Appropriate mood and affect; insight and judgment normal. A/P Assessment and Plan 71-year-old female with no significant past medical history who presented for shortness breath and pleural effusion diagnosed at outpatient urgent care Pleural effusion Shortness of breath S/P acute respiratory failure Likely reexpansion pulmonary edema s/p thoracentesis Imaging personally reviewed: Initial chest CT showed large left pleural effusion. Chest x-ray after after thoracentesis showed left-sided atelectasis with no pneumothorax. Repeat chest x-ray showed increasing edema on the left. Pulmonary angiogram negative for PE, can see she shows significant air space disease in the left lung; inflammatory vs neoplastic. Echocardiogram with normal systolic function, EF 65%. Labs reviewed: Leukocytosis. Lactic acid 1.5. Pleural fluid with 2000 WBCs, 9000 RBCs, LDH 1000. D-dimer elevated. Pro-calcitonin within normal limits. Elevated LDH -Consulted pulmonology, started the patient on IV antibiotics -Supplemental oxygen as needed. -Nebs as needed -Acapella and incentive spirometry -Follow up further fluid studies, cultures, cytology -Repeat chest x-ray in the a.m. -Follow up repeat labs today Elevated troponin: 0.13, 0.09, 0.05. EKG reviewed with no ischemic changes. Nonspecific, possibly secondary to shortness of breath and effusion as above. Monitor on telemetry. DVT prophylaxis: SCDs Discharge Planning Stable for transfer to the floor. If symptoms are secondary to reexpansion pulmonary edema, anticipate patient will continue to improve for possible discharge soon. She will need to follow up outpatient for cytology results. Attending Statement The exam, history, and the medical decision-making described in the above note were completed with the assistance of the mid-level provider. I reviewed and agree with the findings presented. I attest that I had a [id number] encounter with the patient on the same day, and personally performed and documented my assessment and findings in the medical record.patient seen on date of service. Says she is feeling a little better. appears to be breathing more comfortably. Continue antibiotics. Follow up cytology. Appreciate pulmonary assistance. Transfer to floor. Jan Weems February 22, 2017 14:35 rAi Alejo MD February 25, 2017 11:53
[2017-02-22 17:08] LABS: AUTOMATED NEUTROPHIL # 9.1 TH/MM3 (1.8-7.7); BASOPHIL % 0.2 % (0.0-2.0); HEMATOCRIT 33.2 % (35.0-46.0); HEMO FLAGS DIFF FINAL; LYMPH % 4.8 % (9.0-44.0); LYMPHOCYTE # 0.5 TH/MM3 (1.0-4.8); MEAN CELL VOLUME 85.9 FL (80.0-100.0); MEAN CORPUSCULAR HEMOGLOBIN 28.2 PG (27.0-34.0); MEAN CORPUSCULAR HGB CONC 32.8 % (32.0-36.0); MONO % 2.6 % (0.0-8.0); NEUT % 92.4 % (16.0-70.0); PLATELET COUNT 295 TH/MM3 (150-450); RED BLOOD COUNT 3.87 MIL/MM3 (4.00-5.30); RED CELL DISTRIBUTION WIDTH 14.2 % (11.6-17.2); WHITE BLOOD COUNT 9.9 TH/MM3 (4.0-11.0)
--- NOTE | 2017-02-22 17:15 | HHI.PR ---
Subjective Remarks 71 YOWF with large pl eff, s/p TC 3L fluid removed Pl fluid exudative Breathing better CTA patchy left lung infilt Objective Vital Signs Vital Signs Date Time Temp Pulse Resp B/P Pulse Ox O2 Delivery O2 Flow Rate FiO2 02/22/17 16:00 84 02/22/17 16:00 97.7 84 26 102/54 96 02/22/17 14:00 63 02/22/17 12:00 60 02/22/17 12:00 98.3 60 20 97 02/22/17 11:00 97 Nasal Cannula 4.00 02/22/17 10:00 76 02/22/17 08:00 66 02/22/17 08:00 97.6 66 20 108/63 97 02/22/17 06:00 81 02/22/17 04:00 98.0 79 102/62 96 02/22/17 04:00 79 02/22/17 02:00 81 02/22/17 00:00 87 02/22/17 00:00 98.1 87 125/59 97 02/21/17 22:00 94 02/21/17 20:03 95 Nasal Cannula 4.00 02/21/17 20:00 98.3 109 113/66 97 02/21/17 20:00 109 02/21/17 18:00 100 I/O 02/21/17 02/21/17 02/21/17 02/22/17 02/22/17 02/22/17 07:00 15:00 23:00 07:00 15:00 23:00 Intake Total 5277 ml 565 ml 397 ml Output Total 300 ml 300 ml 350 ml Balance 4977 ml 265 ml 47 ml Intake Oral 4880 ml 400 ml 200 ml IV Total 397 ml 165 ml 197 ml Output Urine Total 300 ml 300 ml 350 ml Result Diagram: 02/22/17 1642 02/21/17 0715 Objective Remarks GENERAL: MBMN female, NAD SKIN: Warm and dry. HEAD: Normocephalic. EYES: No scleral icterus. No injection or drainage. NECK: Supple, trachea midline. No JVD or lymphadenopathy. CARDIOVASCULAR: Regular rate and rhythm without murmurs, gallops, or rubs. RESPIRATORY: Breath sounds equal bilaterally. No accessory muscle use. GASTROINTESTINAL: Abdomen soft, non-tender, nondistended. MUSCULOSKELETAL: No cyanosis, or edema. BACK: Nontender without obvious deformity. No CVA tenderness. A/P Assessment and Plan Pleural effusion, s/p TC Pl fluid exudative Lung infilt, inflamation vs infection Malig not ruled out PLAN: Cont Abx Check pl fluid cytolgy and cultures Will need rpt CT 4 weeks If infilt persists, will need bx Kiel Kessler MD February 22, 2017 17:15
[2017-02-22 17:31] LABS: ALKALINE PHOSPHATASE 97 U/L (45-117); ALT (GPT) 20 U/L (10-53); ANION GAP 10 MEQ/L (5-15); AST (GOT) 16 U/L (15-37); BICARBONATE 24.8 MEQ/L (21.0-32.0); BLOOD UREA NITROGEN 18 MG/DL (7-18); CHLORIDE 102 MEQ/L (98-107); GLOMERULAR FILTRATION RATE 68 ML/MIN (>89); POTASSIUM 4.1 MEQ/L (3.5-5.1); SODIUM (NA) 137 MEQ/L (136-145); TOTAL BILIRUBIN ADULT 0.2 MG/DL (0.2-1.0)
[2017-02-23] VITALS (10 sets, daily range): BP systolic 98–148; BP diastolic 51–78; PULSE 65–98; RESP 16–20; TEMP 96.7–98.9; O2SAT 93–99
[2017-02-23] MEDS: PIPERACIL-TAZO 3.375 GM PREMIX 50 ML IV SCH ×4 (02:23→20:24)
[2017-02-23] MEDS: CHLORHEXIDINE GLUCONATE 2 % 1 PACK (2 CLOTHS)(taper/protocol) TOPICAL SCH (04:00)
[2017-02-23] MEDS: SODIUM CHLORIDE 0.9% FLUSH 10 ML FLUSH IV FLUSH SCH ×2 (08:56→20:24)
[2017-02-23 09:15] LABS: APTT (PATIENT) 49.2 SEC (24.3-30.1)
--- NOTE | 2017-02-23 09:17 | RADRPT ---
EXAM DATE/TIME: 02/23/2017 08:52 [facility] COMPARISON: CHEST SINGLE AP, February 21, 2017, 12:00. INDICATIONS : Cough, short of breath. MEDICAL HISTORY : None. SURGICAL HISTORY : None. ENCOUNTER: Subsequent ACUITY: 2 weeks PAIN SCORE: 0/10 LOCATION: Bilateral chest FINDINGS: The cardiac silhouette is enlarged in transverse diameter. There is left lower lobe pneumonia with pa rtial clearing in the left mid lung. The right lung is free of acute parenchymal opacity. The aortic knob is prominent with tortuosity of the descending thoracic aorta. CONCLUSION: 1. Improvement in the previously seen left lower lobe pneumonia Adolph Tate MD on February 23, 2017 at 9:15 Board Certified Radiologist. This report was verified electronically.
--- NOTE | 2017-02-23 09:28 | HHI.FF ---
Face to Face Verification Diagnosis: (1) Pleural effusion, left (2) Cough (3) Lung nodule seen on imaging study (4) Generalized weakness Physical Therapy Order: Evaluate and Treat Home Health Nursing Order: Nursing assessment with vital signs I have seen patient Yolanda Cross on 02/23/17. My clinical findings support the need for the requested home health care services because: Deconditioned w/ increased weakness I certify that my clinical findings support that this patient is homebound because: Unsafe to leave home unassisted Ari Alejo MD February 23, 2017 09:28
[2017-02-23] MEDS ORDERED: OXYGENTANK NAS.CANULA (09:29)
[2017-02-23] MEDS ORDERED: NEBUKIT5 (09:31)
[2017-02-23] MEDS: VANCOMYCIN INJ 1,000 MG in SODIUM CHLOR 0.9% 250 ML INJ 250 ML IV SCH ×2 (09:43→20:24)
[2017-02-23] MEDS: INSULIN ASPART SUPPLEMENTAL SCALE SQ SCH ×3 (13:34→20:52)
[2017-02-23] MEDS ORDERED: SODIUM CHLOR 0.9% 250 ML INJ 250 ML IV PRN (15:15)
--- NOTE | 2017-02-23 19:17 | HHI.PR ---
Subjective Remarks patient seen this morning around 11 AM. Says she is feeling better. Feels like she might be able to go home tomorrow. Denies any chest pain. Shortness of breath improved. Almost off oxygen. Objective Vital Signs Date Time Temp Pulse Resp B/P Pulse Ox O2 Delivery O2 Flow Rate FiO2 02/23/17 18:09 93 21 02/23/17 16:27 97.9 90 18 108/58 93 02/23/17 12:59 98.1 78 18 98/51 94 02/23/17 10:37 71 02/23/17 08:35 95 Nasal Cannula 3.00 02/23/17 08:28 96.9 88 16 107/57 94 02/23/17 04:00 96.7 75 18 116/69 94 02/23/17 02:00 65 02/23/17 00:00 92 02/23/17 00:00 98.4 92 20 137/78 99 02/22/17 22:00 81 02/22/17 21:01 96 Nasal Cannula 4.00 02/22/17 20:00 83 02/22/17 20:00 97.7 83 20 105/74 96 I/O 02/22/17 02/22/17 02/22/17 02/23/17 02/23/17 02/23/17 07:00 15:00 23:00 07:00 15:00 23:00 Intake Total 565 ml 397 ml 256 ml 240 ml 360 ml Output Total 300 ml 350 ml 400 ml 200 ml Balance 265 ml 47 ml -144 ml 240 ml 160 ml Intake Oral 400 ml 200 ml 240 ml 360 ml IV Total 165 ml 197 ml 256 ml Output Urine Total 300 ml 350 ml 400 ml 200 ml # Voids 1 # Bowel Movements 0 0 Result Diagram: 02/22/17 1642 02/22/17 1642 Objective Remarks GENERAL: patient sitting up in bed. Appears more comfortable than yesterday. Alert and oriented 3. SKIN: Warm and dry. HEAD: Normocephalic. EYES: No scleral icterus. No injection or drainage. NECK: Supple, trachea midline. No JVD or lymphadenopathy. CARDIOVASCULAR: Regular rate and rhythm without murmurs, gallops, or rubs. RESPIRATORY: Breath sounds equal bilaterally. No accessory muscle use. GASTROINTESTINAL: Abdomen soft, non-tender, nondistended. MUSCULOSKELETAL: No cyanosis, or edema. BACK: Nontender without obvious deformity. No CVA tenderness. A/P Assessment and Plan 71-year-old female with no significant past medical history who presented for shortness breath and pleural effusion diagnosed at outpatient urgent care Pleural effusion Shortness of breath S/P acute respiratory failure Likely reexpansion pulmonary edema s/p thoracentesis Imaging personally reviewed: Initial chest CT showed large left pleural effusion. Chest x-ray after after thoracentesis showed left-sided atelectasis with no pneumothorax. Repeat chest x-ray showed increasing edema on the left. Pulmonary angiogram negative for PE, can see she shows significant air space disease in the left lung; inflammatory vs neoplastic. Echocardiogram with normal systolic function, EF 65%. Labs reviewed: Leukocytosis. Lactic acid 1.5. Pleural fluid with 2000 WBCs, 9000 RBCs, LDH 1000. D-dimer elevated. Pro-calcitonin within normal limits. Elevated LDH -Consulted pulmonology, started the patient on IV antibiotics -Supplemental oxygen as needed. -Nebs as needed -Acapella and incentive spirometry -Follow up further fluid studies, cultures, cytology -Repeat chest x-ray improved. pulanh vasquez. appreciate assist. //elevated blood glucose. a1c pending. ISS Elevated troponin: 0.13, 0.09, 0.05. EKG reviewed with no ischemic changes. Nonspecific, possibly secondary to shortness of breath and effusion as above. Monitor on telemetry. DVT prophylaxis: SCDs Discharge Planning home with home PT, pending oxygen evaluation and pulmonary clearance. Ari Alejo MD February 23, 2017 19:17
--- NOTE | 2017-02-23 19:53 | HHI.PR ---
Subjective Remarks 71 YOWF with large pl eff, s/p TC 3L fluid removed Pl fluid exudative Breathing better CTA patchy left lung infilt Up in chair Objective Vital Signs Vital Signs Date Time Temp Pulse Resp B/P Pulse Ox O2 Delivery O2 Flow Rate FiO2 02/23/17 18:09 93 21 02/23/17 16:27 97.9 90 18 108/58 93 02/23/17 12:59 98.1 78 18 98/51 94 02/23/17 10:37 71 02/23/17 08:35 95 Nasal Cannula 3.00 02/23/17 08:28 96.9 88 16 107/57 94 02/23/17 04:00 96.7 75 18 116/69 94 02/23/17 02:00 65 02/23/17 00:00 92 02/23/17 00:00 98.4 92 20 137/78 99 02/22/17 22:00 81 02/22/17 21:01 96 Nasal Cannula 4.00 02/22/17 20:00 83 02/22/17 20:00 97.7 83 20 105/74 96 I/O 02/22/17 02/22/17 02/22/17 02/23/17 02/23/17 02/23/17 07:00 15:00 23:00 07:00 15:00 23:00 Intake Total 565 ml 397 ml 256 ml 240 ml 360 ml Output Total 300 ml 350 ml 400 ml 200 ml Balance 265 ml 47 ml -144 ml 240 ml 160 ml Intake Oral 400 ml 200 ml 240 ml 360 ml IV Total 165 ml 197 ml 256 ml Output Urine Total 300 ml 350 ml 400 ml 200 ml # Voids 1 # Bowel Movements 0 0 Result Diagram: 02/22/17 1642 02/22/17 1642 Objective Remarks GENERAL: MBMN female, NAD SKIN: Warm and dry. HEAD: Normocephalic. EYES: No scleral icterus. No injection or drainage. NECK: Supple, trachea midline. No JVD or lymphadenopathy. CARDIOVASCULAR: Regular rate and rhythm without murmurs, gallops, or rubs. RESPIRATORY: Breath sounds equal bilaterally. No accessory muscle use. GASTROINTESTINAL: Abdomen soft, non-tender, nondistended. MUSCULOSKELETAL: No cyanosis, or edema. BACK: Nontender without obvious deformity. No CVA tenderness. A/P Assessment and Plan Pleural effusion, s/p TC Pl fluid exudative Lung infilt, inflamation vs infection Malig not ruled out PLAN: Cont Abx Check pl fluid cytolgy and cultures Will need rpt CT 4 weeks If infilt persists, will need bx DC Plans underway. Kiel Kessler MD February 23, 2017 19:53
[2017-02-23] MEDS: HEPARIN SODIUM - SQ 10,000 UNITS/ML VIAL SQ SCH (20:24)
[2017-02-23 22:20] LABS: HEMOGLOBIN A1a 1.1 %; HEMOGLOBIN A1b 1.9 %; HEMOGLOBIN Ao 82.6 %; HEMOGLOBIN P3 6.2 %
[2017-02-23] MEDS: ONDANSETRON HCL 4 MG/2 ML VIAL IVP PRN (22:25)
[2017-02-24] VITALS: BP 137/64; PULSE 78; RESP 18; TEMP 98; O2SAT 95
[2017-02-24] MEDS: PIPERACIL-TAZO 3.375 GM PREMIX 50 ML IV SCH ×3 (01:52→15:33)
[2017-02-24 04:00] VITALS: BP 111/59; PULSE 87; RESP 18; TEMP 98.6; O2SAT 91
[2017-02-24] MEDS: CHLORHEXIDINE GLUCONATE 2 % 1 PACK (2 CLOTHS)(taper/protocol) TOPICAL SCH (04:24)
[2017-02-24] MEDS: INSULIN ASPART SUPPLEMENTAL SCALE SQ SCH ×2 (06:31→11:00)
[2017-02-24 08:00] VITALS: BP 107/59; PULSE 80; PULSE 83; RESP 18; TEMP 98.9; O2SAT 93
[2017-02-24] MEDS: VANCOMYCIN INJ 1,000 MG in SODIUM CHLOR 0.9% 250 ML INJ 250 ML IV SCH (08:27)
[2017-02-24] MEDS: HEPARIN SODIUM - SQ 10,000 UNITS/ML VIAL SQ SCH (08:28)
[2017-02-24] MEDS: SODIUM CHLORIDE 0.9% FLUSH 10 ML FLUSH IV FLUSH SCH (08:28)
[2017-02-24] MEDS ORDERED: AUGM875T PO (10:39)
[2017-02-24] MEDS ORDERED: IPRASOL NEB (10:39)
--- NOTE | 2017-02-24 10:49 | HHI.PR ---
Subjective Remarks patient feeling well. no cp or sob. says she feels well, wants to go home Objective Vital Signs Date Time Temp Pulse Resp B/P Pulse Ox O2 Delivery O2 Flow Rate FiO2 02/24/17 08:00 98.9 83 18 107/59 93 02/24/17 08:00 80 02/24/17 04:00 98.6 87 18 111/59 91 02/24/17 04:00 87 02/24/17 00:00 98.0 78 18 137/64 95 02/23/17 20:00 98.9 98 18 148/64 94 02/23/17 18:09 93 21 02/23/17 16:27 97.9 90 18 108/58 93 02/23/17 12:59 98.1 78 18 98/51 94 I/O 02/23/17 02/23/17 02/23/17 02/24/17 02/24/17 02/24/17 07:00 15:00 23:00 07:00 15:00 23:00 Intake Total 240 ml 360 ml 720 ml Output Total 200 ml Balance 240 ml 160 ml 720 ml Intake Oral 240 ml 360 ml 360 ml IV Total 360 ml Output Urine Total 200 ml # Voids 3 # Bowel Movements 0 Result Diagram: 02/22/17 1642 02/22/17 1642 Imaging Last Impressions Chest X-Ray 02/23/17 0800 Signed Impressions: Service Date/Time: February 08:52 - CONCLUSION: 1. Improvement in the previously seen left lower lobe pneumonia Adolph Tate MD CT Angiography 02/22/17 0000 Signed Impressions: Service Date/Time: Wednesday, February 22, 2017 09:31 - CONCLUSION: Significant airspace disease in the left lung, probably inflammatory. Neoplastic process is also consideration. There is no evidence of central pulmonary emboli. Avery Nolan MD FACR Thoracentesis Ultrasound 02/21/17 0000 Signed Impressions: Service Date/Time: Tuesday, February 21, 2017 08:21 - CONCLUSION: Uncomplicated ultrasound guided thoracentesis. Lauro Mccabe MD Lower Extremity Ultrasound 02/21/17 0000 Signed Impressions: Service Date/Time: Tuesday, February 21, 2017 22:54 - CONCLUSION: No evidence of deep venous thrombosis. Hernan Moncada MD Chest CT 02/20/17 0000 Signed Impressions: Service Date/Time: Monday, February 20, 2017 21:32 - CONCLUSION: 1. Large left pleural effusion and left upper lobe and left lower lobe atelectasis. Thoracentesis with reimaging recommended. 2. 6 mm nodule right lower lobe. Lauro Mccabe MD Objective Remarks GENERAL: patient sitting up in bed. NAD. Alert and oriented 3. SKIN: Warm and dry. HEAD: Normocephalic. EYES: No scleral icterus. No injection or drainage. NECK: Supple, trachea midline. No JVD or lymphadenopathy. CARDIOVASCULAR: Regular rate and rhythm without murmurs, gallops, or rubs. RESPIRATORY: Breath sounds equal bilaterally. No accessory muscle use. no crackles today GASTROINTESTINAL: Abdomen soft, non-tender, nondistended. MUSCULOSKELETAL: No cyanosis, or edema. BACK: Nontender without obvious deformity. No CVA tenderness. A/P Assessment and Plan 71-year-old female with no significant past medical history who presented for shortness breath and pleural effusion diagnosed at outpatient urgent care Pleural effusion Shortness of breath S/P acute respiratory failure Likely reexpansion pulmonary edema s/p thoracentesis Imaging personally reviewed: Initial chest CT showed large left pleural effusion. Chest x-ray after after thoracentesis showed left-sided atelectasis with no pneumothorax. Repeat chest x-ray showed increasing edema on the left. Pulmonary angiogram negative for PE, can see she shows significant air space disease in the left lung; inflammatory vs neoplastic. Echocardiogram with normal systolic function, EF 65%. Labs reviewed: Leukocytosis. Lactic acid 1.5. Pleural fluid with 2000 WBCs, 9000 RBCs, LDH 1000. D-dimer elevated. Pro-calcitonin within normal limits. Elevated LDH -Consulted pulmonology, started the patient on IV antibiotics -Supplemental oxygen as needed. -Nebs as needed -Acapella and incentive spirometry -Follow up further fluid studies, cultures, cytology -Repeat chest x-ray improved. pulanh vasquez. appreciate assist. -02/24 d/w Dr sams in pulmonology. recommends DC home with [email or web address] days, followup with him for results from biopsy. d/w pt, who conveys understanding. //steroid induced hyperglycemia //Prediabetes -a1c 6.5 - prediabetes. was elevated due to steroids given for premed. improved off steroids ISS Elevated troponin: 0.13, 0.09, 0.05. EKG reviewed with no ischemic changes. Nonspecific, possibly secondary to shortness of breath and effusion as above. likely demand related. no CP. f/u PCP. DVT prophylaxis: SCDs Discharge Planning home with home PT, pending oxygen evaluation and pulmonary clearance. Ari Alejo MD February 24, 2017 10:49
--- NOTE | 2017-02-24 10:51 | HHI.DS ---
Discharge Summary Admission Date February 21, 2017 at 12:05 Discharge Date: February 24, 2017 Admitting Diagnosis LEFT PLEURAL EFFUSION (1) Pleural effusion, left ICD Code: J90 (2) Lung nodule seen on imaging study ICD Code: R91.1 (3) Generalized weakness ICD Code: R53.1 Procedures thoracentesis. please see results. Brief History - From Admission History from patient, ER physician communication, and review of medical records. Patient reported that about 10 days ago, she started coughing and not feeling well. She reports that she was also sneezing with nasal discharge which she thought was allergies. She stated she went to her doctor and was given antibiotics azithromycin. She was also given steroids. States he felt slightly better but yesterday, the cough and shortness of rest has gotten extremely worse. She stated she went to the urgent care of [place]. Over there, she had a chest x-ray done. She was told from there to come immediately to the hospital because of the chest x-ray findings. Exam patient denies fever. denies sputum production. She does however report that she was having some nausea medicines because every time she eats something, she felt like throwing up. Denies any asymmetric leg swelling. She states that last night though, her symptoms were so terrible that she had to sit up in bed to sleep. CBC/BMP: 02/22/17 1642 02/22/17 1642 Significant Findings Laboratory Tests Test 02/21/17 02/21/17 02/21/17 02/21/17 12:00 13:30 15:10 16:52 Blood Gas HCO3 19 mmol/L 20 mmol/L (22-26) (22-26) Blood Gas Base Excess -4.3 mmol/L -3.7 mmol/L (-2-2) (-2-2) Arterial Blood pH 7.43 (7.380-7.420) Arterial Blood Partial 30 mmHg (38-42) 33 mmHg (38-42) Pressure CO2 D-Dimer Quantitative (PE/DVT) 12.96 MG/L FEU (0.00-0.50) White Blood Count 17.8 TH/MM3 (4.0-11.0) Prothrombin Time 11.7 SEC (9.8-11.6) Activated Partial 23.4 SEC Thromboplast Time (24.3-30.1) Test 02/22/17 02/22/17 02/22/17 02/23/17 04:36 10:45 16:42 08:17 Activated Partial 65.4 SEC 59.1 SEC 49.2 SEC Thromboplast Time (24.3-30.1) (24.3-30.1) (24.3-30.1) Red Blood Count 3.87 MIL/MM3 (4.00-5.30) Hemoglobin 10.9 GM/DL (11.6-15.3) Hematocrit 33.2 % (35.0-46.0) Neutrophils (%) (Auto) 92.4 % (16.0-70.0) Lymphocytes (%) (Auto) 4.8 % (9.0-44.0) Neutrophils # (Auto) 9.1 TH/MM3 (1.8-7.7) Lymphocytes # (Auto) 0.5 TH/MM3 (1.0-4.8) Estimat Glomerular Filtration 68 ML/MIN (>89) Rate Random Glucose 312 MG/DL (74-106) Total Protein 6.3 GM/DL (6.4-8.2) Albumin 2.4 GM/DL (3.4-5.0) Hemoglobin A1c 6.4 % (4.3-6.0) Imaging Last Impressions Chest X-Ray 02/23/17 0800 Signed Impressions: Service Date/Time: February 08:52 - CONCLUSION: 1. Improvement in the previously seen left lower lobe pneumonia Adolph Tate MD CT Angiography 02/22/17 0000 Signed Impressions: Service Date/Time: Wednesday, February 22, 2017 09:31 - CONCLUSION: Significant airspace disease in the left lung, probably inflammatory. Neoplastic process is also consideration. There is no evidence of central pulmonary emboli. Avery Nolan MD FACR Thoracentesis Ultrasound 02/21/17 0000 Signed Impressions: Service Date/Time: Tuesday, February 21, 2017 08:21 - CONCLUSION: Uncomplicated ultrasound guided thoracentesis. Lauro Mccabe MD Lower Extremity Ultrasound 02/21/17 0000 Signed Impressions: Service Date/Time: Tuesday, February 21, 2017 22:54 - CONCLUSION: No evidence of deep venous thrombosis. Hernan Moncada MD Chest CT 02/20/17 0000 Signed Impressions: Service Date/Time: Monday, February 20, 2017 21:32 - CONCLUSION: 1. Large left pleural effusion and left upper lobe and left lower lobe atelectasis. Thoracentesis with reimaging recommended. 2. 6 mm nodule right lower lobe. Lauro Mccabe MD PE at Discharge GENERAL: Well-developed well-nourished. In no acute distress. SKIN: Warm and dry. No lesions noted. HEENT: Normocephalic. Pupils equal and round. Mucous membranes pink and moist. CARDIOVASCULAR: Regular rate and rhythm. No murmur appreciated. RESPIRATORY: No accessory muscle use. Left basilar crackles. GASTROINTESTINAL: Abdomen soft, non-tender, nondistended. Bowel sounds x4. MUSCULOSKELETAL: No obvious deformities. No clubbing or cyanosis. No edema. NEUROLOGICAL: Awake and alert. No focal neurological deficits. Moves upper and lower extremities spontaneously. Normal speech. PSYCHIATRIC: Appropriate mood and affect; insight and judgment normal. Hospital Course 71-year-old female with no significant past medical history who presented for shortness breath and pleural effusion diagnosed at outpatient urgent care Pleural effusion Shortness of breath S/P acute respiratory failure Likely reexpansion pulmonary edema s/p thoracentesis Imaging personally reviewed: Initial chest CT showed large left pleural effusion. Chest x-ray after after thoracentesis showed left-sided atelectasis with no pneumothorax. Repeat chest x-ray showed increasing edema on the left. Pulmonary angiogram negative for PE, can see she shows significant air space disease in the left lung; inflammatory vs neoplastic. Echocardiogram with normal systolic function, EF 65%. Labs reviewed: Leukocytosis. Lactic acid 1.5. Pleural fluid with 2000 WBCs, 9000 RBCs, LDH 1000. D-dimer elevated. Pro-calcitonin within normal limits. Elevated LDH -Consulted pulmonology, started the patient on IV antibiotics -Supplemental oxygen as needed. -Nebs as needed -Acapella and incentive spirometry -Follow up further fluid studies, cultures, cytology -Repeat chest x-ray improved. pulanh vasquez. appreciate assist. -02/24 d/w Dr sams in pulmonology. recommends DC home with [email or web address] days, followup with him for results from biopsy. d/w pt, who conveys understanding. //steroid induced hyperglycemia //Prediabetes -a1c 6.5 - prediabetes. was elevated due to steroids given for premed. improved off steroids ISS Elevated troponin: 0.13, 0.09, 0.05. EKG reviewed with no ischemic changes. Nonspecific, possibly secondary to shortness of breath and effusion as above. likely demand related. no CP. f/u PCP. DVT prophylaxis: SCDs Pt Condition on Discharge: Good Discharge Disposition: Discharge Home Discharge Time: > 30 minutes Discharge Instructions DIET: Follow Instructions for: As Tolerated, No Restrictions Activities you can perform: Regular-No Restrictions Other Activity Instructions: do not fly in airplane until cleared by pulmonology. Follow up Referrals: PCP Follow-up - 1 Week with Jose Ansari MD Pulmonology - 1 Week with Kiel Sams MD New Medications: Amoxicillin-Clavulanate (Augmentin) 875-125 mg Tab 875 MG PO BID not for use in CrCl <30 ml/min. Infection #14 Ref 0 TAB Nebulizer Kit/Tubing/Mout (Nebulizer Kit/Tubing/Mout) 1 Kit Kit 1 KIT .ROUTE DIRECTED Breathing Treatment #1 Ref 0 KIT Oxygen tank (Oxygen tank) 1 Ea Tank 2 LITER MISA.CANULA CONTINUOUS Oxygen Concentrator Portable Gaseous 2 L/min via Nasal Cannula Continuous For 99 months HYPOXEMIA PREVENTION #2 CYLINDER Ipratropium-Albuterol Neb (Duoneb) 0.5-2.5 Mg/3 Ml Neb 1 AMPULE NEB Q4HR NEB PRN SOB/WHEEZING Days 30 ML Discontinued Medications: Aspirin (Aspirin Children's) 81 Mg Chew 81 MG CHEW DAILY Ref 0 TAB Ari Alejo MD February 24, 2017 10:51
--- NOTE | 2017-02-24 11:50 | HHI.PR ---
Subjective Remarks 71 YOWF with large pl eff, s/p TC 3L fluid removed Pl fluid exudative Breathing better CTA patchy left lung infilt Ambulates Objective Vital Signs Vital Signs Date Time Temp Pulse Resp B/P Pulse Ox O2 Delivery O2 Flow Rate FiO2 02/24/17 08:00 98.9 83 18 107/59 93 02/24/17 08:00 80 02/24/17 04:00 98.6 87 18 111/59 91 02/24/17 04:00 87 02/24/17 00:00 98.0 78 18 137/64 95 02/23/17 20:00 98.9 98 18 148/64 94 02/23/17 18:09 93 21 02/23/17 16:27 97.9 90 18 108/58 93 02/23/17 12:59 98.1 78 18 98/51 94 I/O 02/23/17 02/23/17 02/23/17 02/24/17 02/24/17 02/24/17 07:00 15:00 23:00 07:00 15:00 23:00 Intake Total 240 ml 360 ml 720 ml Output Total 200 ml Balance 240 ml 160 ml 720 ml Intake Oral 240 ml 360 ml 360 ml IV Total 360 ml Output Urine Total 200 ml # Voids 3 # Bowel Movements 0 Result Diagram: 02/22/17 1642 02/22/17 1642 Objective Remarks GENERAL: MBMN female, NAD SKIN: Warm and dry. HEAD: Normocephalic. EYES: No scleral icterus. No injection or drainage. NECK: Supple, trachea midline. No JVD or lymphadenopathy. CARDIOVASCULAR: Regular rate and rhythm without murmurs, gallops, or rubs. RESPIRATORY: Breath sounds equal bilaterally. No accessory muscle use. GASTROINTESTINAL: Abdomen soft, non-tender, nondistended. MUSCULOSKELETAL: No cyanosis, or edema. BACK: Nontender without obvious deformity. No CVA tenderness. A/P Assessment and Plan Pleural effusion, s/p TC Pl fluid exudative Lung infilt, inflamation vs infection Malig not ruled out PLAN: Cont Abx, PO Augmentin Check pl fluid cytolgy and cultures Will need rpt CT 4 weeks If infilt persists, will need bx DC Plans underway. Will Fu in office DW Dr.Duncan Kessler,Kiel Thayer MD February 24, 2017 11:50
[2017-02-24 12:00] VITALS: BP 112/70; PULSE 89; RESP 18; TEMP 99; O2SAT 96
[2017-02-24 15:46] LABS: BICARBONATE 29.2 MEQ/L (21.0-32.0); POTASSIUM 3.5 MEQ/L (3.5-5.1)
[2017-02-24 16:00] VITALS: BP 121/64; PULSE 97; RESP 18; TEMP 99.8; O2SAT 93
--- NOTE | 2017-02-25 11:00 | HHI.DS ---
cc: Jose Ansari MD Discharge Summary Admission Date February 21, 2017 at 12:05 Discharge Date: February 24, 2017 Admitting Diagnosis LEFT PLEURAL EFFUSION (1) Pleural effusion, left ICD Code: J90 (2) Lung nodule seen on imaging study ICD Code: R91.1 (3) Generalized weakness ICD Code: R53.1 Procedures thoracentesis. please see results. cytology has subsequently returned positive for adenocarcinoma after discharge. Brief History - From Admission History from patient, ER physician communication, and review of medical records. Patient reported that about 10 days ago, she started coughing and not feeling well. She reports that she was also sneezing with nasal discharge which she thought was allergies. She stated she went to her doctor and was given antibiotics azithromycin. She was also given steroids. States he felt slightly better but yesterday, the cough and shortness of rest has gotten extremely worse. She stated she went to the urgent care of [place]. Over there, she had a chest x-ray done. She was told from there to come immediately to the hospital because of the chest x-ray findings. Exam patient denies fever. denies sputum production. She does however report that she was having some nausea medicines because every time she eats something, she felt like throwing up. Denies any asymmetric leg swelling. She states that last night though, her symptoms were so terrible that she had to sit up in bed to sleep. CBC/BMP: 02/22/17 1642 02/24/17 1431 Significant Findings Laboratory Tests Test 02/22/17 02/23/17 02/24/17 16:42 08:17 14:31 Red Blood Count 3.87 MIL/MM3 (4.00-5.30) Hemoglobin 10.9 GM/DL (11.6-15.3) Hematocrit 33.2 % (35.0-46.0) Neutrophils (%) (Auto) 92.4 % (16.0-70.0) Lymphocytes (%) (Auto) 4.8 % (9.0-44.0) Neutrophils # (Auto) 9.1 TH/MM3 (1.8-7.7) Lymphocytes # (Auto) 0.5 TH/MM3 (1.0-4.8) Estimat Glomerular Filtration 68 ML/MIN (>89) 84 ML/MIN (>89) Rate Random Glucose 312 MG/DL 140 MG/DL (74-106) (74-106) Total Protein 6.3 GM/DL (6.4-8.2) Albumin 2.4 GM/DL (3.4-5.0) Hemoglobin A1c 6.4 % (4.3-6.0) Activated Partial 49.2 SEC Thromboplast Time (24.3-30.1) Calcium Level 8.3 MG/DL (8.5-10.1) Imaging Last Impressions Chest X-Ray 02/23/17 0800 Signed Impressions: Service Date/Time: February 08:52 - CONCLUSION: 1. Improvement in the previously seen left lower lobe pneumonia Adolph Tate MD CT Angiography 02/22/17 0000 Signed Impressions: Service Date/Time: Wednesday, February 22, 2017 09:31 - CONCLUSION: Significant airspace disease in the left lung, probably inflammatory. Neoplastic process is also consideration. There is no evidence of central pulmonary emboli. Avery Nolan MD FACR Thoracentesis Ultrasound 02/21/17 0000 Signed Impressions: Service Date/Time: Tuesday, February 21, 2017 08:21 - CONCLUSION: Uncomplicated ultrasound guided thoracentesis. Lauro Mccabe MD Lower Extremity Ultrasound 02/21/17 0000 Signed Impressions: Service Date/Time: Tuesday, February 21, 2017 22:54 - CONCLUSION: No evidence of deep venous thrombosis. Hernan Moncada MD Chest CT 02/20/17 0000 Signed Impressions: Service Date/Time: Monday, February 20, 2017 21:32 - CONCLUSION: 1. Large left pleural effusion and left upper lobe and left lower lobe atelectasis. Thoracentesis with reimaging recommended. 2. 6 mm nodule right lower lobe. Lauro Mccabe MD PE at Discharge GENERAL: Well-developed well-nourished. In no acute distress. SKIN: Warm and dry. No lesions noted. HEENT: Normocephalic. Pupils equal and round. Mucous membranes pink and moist. CARDIOVASCULAR: Regular rate and rhythm. No murmur appreciated. RESPIRATORY: No accessory muscle use. Left basilar crackles. GASTROINTESTINAL: Abdomen soft, non-tender, nondistended. Bowel sounds x4. MUSCULOSKELETAL: No obvious deformities. No clubbing or cyanosis. No edema. NEUROLOGICAL: Awake and alert. No focal neurological deficits. Moves upper and lower extremities spontaneously. Normal speech. PSYCHIATRIC: Appropriate mood and affect; insight and judgment normal. Hospital Course Patient was started on oxygen, CT angiogram negative for pulmonary embolism as above. Patient underwent thoracentesis of left sided pleural effusion which returned as exudative, with LDH above 1000. Pulmonology was consult that, and patient was started on broad-spectrum antibiotics for possible pneumonia. Patient's respiratory status improved, and was still requiring 2 L of oxygen with ambulation at discharge. She will need follow-up with Dr. Sams to go over cytology results which are still pending. Patient advised of the high possibility of cancer, and the importance of follow-up with pulmonology. Patient conveys understanding. Patient did experience high glucose during admission, likely secondary to steroids which were given prior to CT angiogram. A1c 6.4, indicating prediabetes. She'll need a follow-up with primary care. cytology from thoracentesis has returned positive for adenocarcinoma For probably summary from most recent progress note, please see below. 71-year-old female with no significant past medical history who presented for shortness breath and pleural effusion diagnosed at outpatient urgent care Pleural effusion Shortness of breath S/P acute respiratory failure Likely reexpansion pulmonary edema s/p thoracentesis Imaging personally reviewed: Initial chest CT showed large left pleural effusion. Chest x-ray after after thoracentesis showed left-sided atelectasis with no pneumothorax. Repeat chest x-ray showed increasing edema on the left. Pulmonary angiogram negative for PE, can see she shows significant air space disease in the left lung; inflammatory vs neoplastic. Echocardiogram with normal systolic function, EF 65%. Labs reviewed: Leukocytosis. Lactic acid 1.5. Pleural fluid with 2000 WBCs, 9000 RBCs, LDH 1000. D-dimer elevated. Pro-calcitonin within normal limits. Elevated LDH -Consulted pulmonology, started the patient on IV antibiotics -Supplemental oxygen as needed. -Nebs as needed -Acapella and incentive spirometry -Follow up further fluid studies, cultures, cytology -Repeat chest x-ray improved. pulm perdo. appreciate assist. -02/24 d/w Dr sams in pulmonology. recommends DC home with [email or web address] days, followup with him for results from biopsy. d/w pt, who conveys understanding. //steroid induced hyperglycemia //Prediabetes -a1c 6.5 - prediabetes. was elevated due to steroids given for premed. improved off steroids ISS Elevated troponin: 0.13, 0.09, 0.05. EKG reviewed with no ischemic changes. Nonspecific, possibly secondary to shortness of breath and effusion as above. likely demand related. no CP. f/u PCP. DVT prophylaxis: SCDs Discharge Planning home with home PT, pending oxygen evaluation and pulmonary clearance. Pt Condition on Discharge: Good Discharge Disposition: Discharge Home Discharge Time: > 30 minutes Discharge Instructions DIET: Follow Instructions for: As Tolerated, No Restrictions Activities you can perform: Regular-No Restrictions Other Activity Instructions: do not fly in airplane until cleared by pulmonology. Follow up Referrals: PCP Follow-up - 1 Week with Jose Ansari MD Pulmonology - 1 Week with Kiel Sams MD New Medications: Amoxicillin-Clavulanate (Augmentin) 875-125 mg Tab 875 MG PO BID not for use in CrCl <30 ml/min. Infection #14 Ref 0 TAB Nebulizer Kit/Tubing/Mout (Nebulizer Kit/Tubing/Mout) 1 Kit Kit 1 KIT .ROUTE DIRECTED Breathing Treatment #1 Ref 0 KIT Oxygen tank (Oxygen tank) 1 Ea Tank 2 LITER MISA.CANULA CONTINUOUS Oxygen Concentrator Portable Gaseous 2 L/min via Nasal Cannula Continuous For 99 months HYPOXEMIA PREVENTION #2 CYLINDER Ipratropium-Albuterol Neb (Duoneb) 0.5-2.5 Mg/3 Ml Neb 1 AMPULE NEB Q4HR NEB PRN SOB/WHEEZING Days 30 ML Discontinued Medications: Aspirin (Aspirin Children's) 81 Mg Chew 81 MG CHEW DAILY Ref 0 TAB Ari Alejo MD February 25, 2017 11:00
== END 2017-02-24 17:17 | disposition home or self-care (01) | DRG 843 ==
LOC: NEPC 19:09 → INTOOBSV 22:42 → NEDA 22:42 → NEPHCDU 02-21 01:19 → OBSVTOIN 02-21 12:05 → HIMN 02-21 12:30 → N05B 02-23 03:29
PROVIDERS: ADMIT Internal Medicine; ATTEND Internal Medicine
PROC: 0W9B3ZX Drainage of Left Pleural Cavity, Percutaneous Approach, Diagnostic (ICD-10-PCS; principal; 2017-02-21)
DX: C80.1 Malignant (primary) neoplasm, unspecified (principal); J96.00 Acute respiratory failure, unspecified whether with hypoxia or hypercapnia; J91.0 Malignant pleural effusion; R53.1 Weakness; R91.1 Solitary pulmonary nodule; T38.0X5A Adverse effect of glucocorticoids and synthetic analogues, initial encounter; R73.9 Hyperglycemia, unspecified; R73.03 Prediabetes; R74.8 Abnormal levels of other serum enzymes
CPT/HCPCS: 32555; 36600; 71010; 71250; 71275; 80048; 80053; 82042; 82550; 82805; 82945; 83036; 83605; 83615; 83690; 83735; 83880; 83986; 84145; 84157; 84484; 85025; 85027; 85379; 85610; 85730; 87040; 87070; 87205; 87641; 88112; 88305; 88341; 88342; 89051; 93005; 93306; 93970; 94150; 94620; 94667; 94668; C1729; G0378; J1644; J1815; J2405; J2543; J3370; J7050; J7512; Q0163; Q9967

== ENCOUNTER 2017-04-05 08:28 | Day surgery (SDC) | payer MEDICARE ==
[2017-04-05] VITALS (8 sets, daily range): BP systolic 93–129; BP diastolic 60–79; PULSE 77–96; RESP 16–18; TEMP 97.5–98.5; O2SAT 91–95
[~2017-04-05] VITALS: Ht 157.5 cm; Wt 60.0 kg
[~2017-04-05 08:28] MED LIST changes: -ALBU0.08 NEB; -ASPI81TA82 PO; +AUGM875T PO; -AZIT250T3 PO; +IPRASOL NEB; +NEBUKIT5; +OXYGENTANK NAS.CANULA; -PRED5TAB PO
[2017-04-05] MEDS ORDERED: BOSW5TAB PO (08:46)
[2017-04-05] MEDS ORDERED: ASPI81TA81 PO (08:46)
[2017-04-05] MEDS ORDERED: GINK60TA10 PO (08:46)
[2017-04-05] MEDS ORDERED: MUPIROCIN 2% OINT 1 APPLIC/GM SYR EACH NARE SCH (09:45)
[2017-04-05] MEDS ORDERED: CHLORHEXIDINE GLUCONATE 2 % 1 PACK (2 CLOTHS) TOPICAL SCH (09:45)
[2017-04-05] MEDS ORDERED: ceFAZolin 2 GM PREMIX 50 ML - implanted port/tunneled catheter insertion IV SCH (09:45)
[2017-04-05] MEDS ORDERED: VANCOMYCIN 1000 MG/NS 250 ML - implanted port/tunneled catheter IV SCH ×2 (09:45)
[2017-04-05] MEDS ORDERED: LIDOCAINE 1%/EPINEPHrine 1:100,000 SOLN 20 ML VIAL ONE (10:37)
[2017-04-05] MEDS ORDERED: fentaNYL CITRATE 250 MCG/5 ML AMP ONE (10:46)
[2017-04-05] MEDS ORDERED: MIDAZOLAM HCL 5 MG/5 ML VIAL ONE (10:46)
--- NOTE | 2017-04-05 11:26 | PD.RAD ---
Post Procedure Progress Note Pre Procedure Diagnosis: (1) Metastasis Post Procedure Diagnosis: (1) Metastasis Procedure Date: Apr 05, 2017 Supervising Radiologist: Christopher Angeles Proceduralist/Assist: Jacki Mojica, RT(R)(), Dolores John RT(R)() Anesthesia: Conscious Sedation Plan of Activity Patient to Unit: [facility] Patient Condition: Good Additional Comments: Right IJ port placed. Tip at [facility]. See PACS Report for procedural detail/treatment Christopher Angeles MD Apr 05, 2017 11:26
[2017-04-05] MEDS ORDERED: SODIUM CHLORIDE 0.9% FLUSH 10 ML FLUSH IVF PRN (11:30)
--- NOTE | 2017-04-05 13:35 | RADRPT ---
EXAM DATE/TIME: 04/05/2017 11:03 [facility] COMPARISON: No previous studies available for comparison. 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 MEDICAL HISTORY : History of left pleural effusion, migraine, rheumatoid arthritis, vertigo. SURGICAL HISTORY : History of thoracentesis, appendectomy, tonsillectomy. ENCOUNTER: Initial ACUITY: 3 weeks PAIN SCORE: 5/10 LOCATION: bilateral shoulders FLUORO TIME: 0.3 minutes IMAGE SERIES: 0 SEDATION TIME: 30 minutes ACCESS: Right internal jugular vein SEDATION: 1.) 1.5 mg midazolam (Versed) IV 2.) 75 mcg fentanyl (Sublimaze) IV Prophylactic antibiotics were administered with appropriate pre-procedure timing. Vancomycin within 2 hours of procedure, Ancef (or alternative) within 1 hour of procedure. DEVICE: 1. 8 [place] Uhrwdv-w-xwod SmartPort PROCEDURE : 1. Continuous pulse oximetry and EKG monitoring. 2. Intravenous conscious sedation. 3. Ultrasound guidance for venous access. 4. Fluoroscopic guided implantable central venous port placement. The patient was placed supine. The neck was prepped in sterile fashion. Full sterile technique was u sed, including cap, mask, sterile gloves and gown, and a large sterile sheet. Hand hygiene and 2% ch lorhexidine Betadine was utilized per protocol for cutaneous antisepsis with appropriate dry time for site. The skin and subcutaneous tissues were infiltrated with local anesthetic solution. Under direct ultrasound guidance, central venous access was accomplished in the targeted vessel. The ultrasound images depicting access guidance were stored and saved to PACS for permanent record. A s ubcutaneous pocket was created using blunt dissection. The port was introduced to the pocket. The c atheter tubing was fed through a subcutaneous tunnel to the venotomy site. The catheter tubing was c ut to a suitable length and then was introduced through a valved Peel-Away sheath and positioned with catheter tubing tip at the cavo-atrial junction level. The pocket incision was closed with subcutic ular Vicryl suture. Steri-Strips were applied. The port was flushed and locked with heparin solutio n per protocol. Sterile dressing was applied to the site. The patient tolerated the procedure well. Conscious sedation was performed with the prescribed dosages and duration as above in the presence of an independent trained radiology nurse to assist in the monitoring of the patient. EKG and oximetry remained stable throughout the procedure. The patient tolerated the procedure well and there were no complications. The patient was sent to post anesthesia recovery in stable condition. CONCLUSION: Uncomplicated ultrasound and fluoroscopic guided implanted central venous port catheter placement as described in detail above. An 8 [place] Power port was placed. Christopher Angeles MD on April 05, 2017 at 13:32 Board Certified Radiologist. This report was verified electronically.
== END 2017-04-05 14:50 | disposition home or self-care (01) ==
LOC: HRIP 08:28 → HROP 08:28
PROVIDERS: ATTEND Internal Medicine Hematology & Oncology
DX: C55 Malignant neoplasm of uterus, part unspecified (principal); J91.0 Malignant pleural effusion; R42 Dizziness and giddiness; M19.90 Unspecified osteoarthritis, unspecified site
CPT/HCPCS: 36561; 76937; 77001; 99152; 99153; C1788; J1642; J2250; J3010

== ENCOUNTER 2017-04-26 04:40 | Inpatient (IN) | payer MEDICARE ==
[2017-04-26] VITALS (12 sets, daily range): BP systolic 112–150; BP diastolic 60–94; PULSE 89–110; RESP 16–24; TEMP 96.8–98.6; O2SAT 91–97
[~2017-04-26 04:40] MED LIST changes: +ASPI81TA81 PO; -AUGM875T PO; +BOSW5TAB PO; +GINK60TA10 PO
[2017-04-26 05:33] LABS: AUTOMATED NEUTROPHIL # 6.4 TH/MM3 (1.8-7.7); BASOPHIL % 0.2 % (0.0-2.0); HEMATOCRIT 30.8 % (35.0-46.0); HEMO FLAGS DIFF FINAL; LYMPH % 3.9 % (9.0-44.0); LYMPHOCYTE # 0.3 TH/MM3 (1.0-4.8); MEAN CORPUSCULAR HEMOGLOBIN 27.8 PG (27.0-34.0); MEAN CORPUSCULAR HGB CONC 33.5 % (32.0-36.0); MONO % 2.1 % (0.0-8.0); NEUT % 93.8 % (16.0-70.0); PLATELET COUNT 491 TH/MM3 (150-450); RED BLOOD COUNT 3.71 MIL/MM3 (4.00-5.30); RED CELL DISTRIBUTION WIDTH 14.8 % (11.6-17.2); WHITE BLOOD COUNT 6.9 TH/MM3 (4.0-11.0)
--- NOTE | 2017-04-26 05:42 | PD ---
HPI Chief Complaint: Respiratory Symptoms Time Seen by Provider: 05:02 Travel History International Travel<30 days: No Contact w/Intl Traveler<30days: No Traveled to known affect area: No History of Present Illness HPI This is a 71-year-old female who presents to the emergency department with increasing lower extremity swelling, and shortness of breath it's been worse over the past 24 hours. She has a new diagnosis of pelvic malignancy and she was just started on chemotherapy yesterday. Her oncologist thought that her swelling may improve with the chemotherapy but she feels like it's only gotten worse and she's been having increasing trouble breathing, constant, severe, worse with exertion, worse with laying flat. She required a thoracentesis earlier in her illness. She denies any fevers or chills. PFSH Past Medical History Arthritis: Yes (hands) Heart Rhythm Problems: No Cancer: Yes Cardiac Catheterization: No Cardiovascular Problems: No High Cholesterol: No Chemotherapy: Yes Congestive Heart Failure: No Diabetes: No Endocrine: No Genitourinary: No Immune Disorder: No Musculoskeletal: No Neurologic: Yes (vertigo) Psychiatric: No Reproductive: No Respiratory: Yes Immunizations Current: No Migraines: Yes (in the ) Thyroid Disease: No Past Surgical History Abdominal Surgery: Yes (appendectomy) AICD: No Appendectomy: Yes Coronary Artery Bypass Graft: No Joint Replacement: No Pacemaker: No Tonsillectomy: Yes Other Surgery: Yes Social History Alcohol Use: No Tobacco Use: No Substance Use: No (5 cups/day) Allergies-Medications (Allergen,Severity, Reaction): Coded Allergies: Iodine (Verified Allergy, Severe, Swelling, 04/26/17) Uncoded Allergies: CITRUS (Allergy, Severe, Swelling, 08/31/15) Reported Meds & Prescriptions Reported Meds & Active Scripts Active Duoneb (Ipratropium-Albuterol Neb) 0.5-2.5 Mg/3 Ml Neb 1 Ampule NEB Q4HR NEB PRN 30 Days Nebulizer Kit/Tubing/Mout (N/A) 1 Kit Kit 1 Kit .ROUTE DIRECTED Oxygen tank (Oxygen) 1 Ea Tank 2 Liter MISA.CANULA CONTINUOUS Oxygen Concentrator Portable Gaseous 2 L/min via Nasal Cannula Continuous For 99 months Reported Aspir-81 (Aspirin) 81 Mg Tabdr 1 Mg PO DAILY Ginkgo Biloba (Ginkgo Biloba [place] Extract) 60 Mg Tablet 1 Mg PO DAILY Osteo Bi-Flex One A Day (Voqzaswsp-Ldtgkvqzjze-Jyxbevj) 1 Tab 1 Tab PO DAILY Review of Systems Except as stated in HPI: all other systems reviewed are Neg Physical Exam Narrative GENERAL: Frail elderly female in no acute distress. SKIN: Focused skin assessment warm and dry. HEAD: Atraumatic. Normocephalic. EYES: Pupils equal and round. No injection or drainage. ENT: Moist mucous membranes NECK: Trachea midline. CARDIOVASCULAR: Regular rate and rhythm. No murmur appreciated. RESPIRATORY: Absent breath sounds on the left. Tachypnea. GASTROINTESTINAL: Abdomen soft, distended, nontender MUSCULOSKELETAL: No obvious deformities. 3+ bilateral lower extremity pitting edema. NEUROLOGICAL: Awake and alert. No obvious cranial nerve deficits. Moving all extremities. PSYCHIATRIC: Appropriate mood and affect; insight and judgment normal. Data Data Last Documented VS Vital Signs Date Time Temp Pulse Resp B/P Pulse Ox O2 Delivery O2 Flow Rate FiO2 04/26/17 05:16 99 20 122/60 94 Room Air 04/26/17 04:45 98.6 Orders Complete Blood Count With Diff (04/26/17 05:07) Comprehensive Metabolic Panel (04/26/17 05:07) Prothrombin Time / Inr (Pt) (04/26/17 05:07) Act Partial Throm Time (Ptt) (04/26/17 05:07) Chest, Single Ap (04/26/17 ) Labs Laboratory Tests Test 04/26/17 05:15 White Blood Count 6.9 TH/MM3 Red Blood Count 3.71 MIL/MM3 Hemoglobin 10.3 GM/DL Hematocrit 30.8 % Mean Corpuscular Volume 83.0 FL Mean Corpuscular Hemoglobin 27.8 PG Mean Corpuscular Hemoglobin 33.5 % Concent Red Cell Distribution Width 14.8 % Platelet Count 491 TH/MM3 Mean Platelet Volume 7.8 FL Neutrophils (%) (Auto) 93.8 % Lymphocytes (%) (Auto) 3.9 % Monocytes (%) (Auto) 2.1 % Eosinophils (%) (Auto) 0.0 % Basophils (%) (Auto) 0.2 % Neutrophils # (Auto) 6.4 TH/MM3 Lymphocytes # (Auto) 0.3 TH/MM3 Monocytes # (Auto) 0.1 TH/MM3 Eosinophils # (Auto) 0.0 TH/MM3 Basophils # (Auto) 0.0 TH/MM3 CBC Comment DIFF FINAL Differential Comment Prothrombin Time 11.3 SEC Prothromb Time International 1.0 RATIO Ratio Activated Partial 25.0 SEC Thromboplast Time Sodium Level 136 MEQ/L Potassium Level 4.5 MEQ/L Chloride Level 101 MEQ/L Carbon Dioxide Level 23.9 MEQ/L Anion Gap 11 MEQ/L Blood Urea Nitrogen 27 MG/DL Creatinine 0.81 MG/DL Estimat Glomerular Filtration 70 ML/MIN Rate Random Glucose 192 MG/DL Calcium Level 8.9 MG/DL Total Bilirubin 0.3 MG/DL Aspartate Amino Transf 31 U/L (AST/SGOT) Alanine Aminotransferase 22 U/L (ALT/SGPT) Alkaline Phosphatase 143 U/L Total Protein 7.4 GM/DL Albumin 2.3 GM/DL [facility] Medical Decision Making Medical Screen Exam Complete: Yes Emergency Medical Condition: Yes Interpretation(s) afebrile, tachycardic, hypertensive anemia 93% neutrophils electrolytes within normal limits coags normal xray: large left pleural effusion Rhoda Lincoln MD Apr 26, 2017 05:42
[2017-04-26 05:52] LABS: ANION GAP 11 MEQ/L (5-15); AST (GOT) 31 U/L (15-37); BICARBONATE 23.9 MEQ/L (21.0-32.0); BLOOD UREA NITROGEN 27 MG/DL (7-18); CHLORIDE 101 MEQ/L (98-107); GLOMERULAR FILTRATION RATE 70 ML/MIN (>89); POTASSIUM 4.5 MEQ/L (3.5-5.1); SODIUM (NA) 136 MEQ/L (136-145)
[2017-04-26 05:55] LABS: ALKALINE PHOSPHATASE 143 U/L (45-117); ALT (GPT) 22 U/L (10-53); TOTAL BILIRUBIN ADULT 0.3 MG/DL (0.2-1.0)
[2017-04-26 06:13] LABS: PROTHROMBIN TIME - PATIENT 11.3 SEC (9.8-11.6)
--- NOTE | 2017-04-26 06:36 | RADRPT ---
EXAM DATE/TIME: 04/26/2017 05:12 [facility] COMPARISON: CHEST SINGLE AP, February 23, 2017, 8:52. INDICATIONS : Shortness of breath. MEDICAL HISTORY : metatstatic uterine adenocarcinoma. SURGICAL HISTORY : Infusaport. ENCOUNTER: Initial ACUITY: 1 day PAIN SCORE: 0/10 LOCATION: Bilateral chest FINDINGS: A single view of the chest demonstrates a large left-sided pleural effusion. There is mediastinal corwin ft to the right side. The right lung is grossly clear and well-aerated. There is a right-sided Infuse -a-Port in place. The bony structures are stable compared to prior exam.. CONCLUSION: Large left pleural effusion. Yobany Guadarrama MD on April 26, 2017 at 6:34 Board Certified Radiologist. This report was verified electronically.
[2017-04-26] MEDS ORDERED: NALOXONE HCL 0.4 MG/ML AMP IV PRN ×2 (07:15→14:45)
[2017-04-26] MEDS ORDERED: SODIUM CHLORIDE 0.9% FLUSH 10 ML FLUSH IV FLUSH PRN (07:15)
--- NOTE | 2017-04-26 09:19 | PD.ONC.PN ---
Subjective Subjective Remarks Difficulty breathing. Has known L hemithorax malignant effusion secondary to metastatic endometrial adenocarcinoma. Out patient thoracentesis was ordered earlier this week, it could be done in time... Was started on palliative chemotherapy with Carboplatin and Paclitaxel on 2016. US guided therapeutic thoracentesis has been appropriately ordered. Re-evaluate for dyspnea post procedure. If her symptoms are improved, she may be d/donald home. I will place a full consult if she is not feeling better post procedure, or if the hospitalized becomes complicated or prolonged. Objective Data Date Time Temp Pulse Resp B/P Pulse Ox O2 Delivery O2 Flow Rate FiO2 04/26/17 09:01 97.7 97 18 122/83 94 04/26/17 07:49 94 Nasal Cannula 2 04/26/17 07:48 95 24 125/94 91 Nasal Cannula 1 04/26/17 05:16 99 20 122/60 94 Room Air 04/26/17 04:45 98.6 110 20 150/77 94 Room Air Result Diagram: 04/26/17 0515 04/26/17 0515 Laboratory Results Laboratory Tests Test 04/26/17 05:15 White Blood Count 6.9 TH/MM3 Red Blood Count 3.71 MIL/MM3 Hemoglobin 10.3 GM/DL Hematocrit 30.8 % Mean Corpuscular Volume 83.0 FL Mean Corpuscular Hemoglobin 27.8 PG Mean Corpuscular Hemoglobin 33.5 % Concent Red Cell Distribution Width 14.8 % Platelet Count 491 TH/MM3 Mean Platelet Volume 7.8 FL Neutrophils (%) (Auto) 93.8 % Lymphocytes (%) (Auto) 3.9 % Monocytes (%) (Auto) 2.1 % Eosinophils (%) (Auto) 0.0 % Basophils (%) (Auto) 0.2 % Neutrophils # (Auto) 6.4 TH/MM3 Lymphocytes # (Auto) 0.3 TH/MM3 Monocytes # (Auto) 0.1 TH/MM3 Eosinophils # (Auto) 0.0 TH/MM3 Basophils # (Auto) 0.0 TH/MM3 CBC Comment DIFF FINAL Differential Comment Prothrombin Time 11.3 SEC Prothromb Time International 1.0 RATIO Ratio Activated Partial 25.0 SEC Thromboplast Time Sodium Level 136 MEQ/L Potassium Level 4.5 MEQ/L Chloride Level 101 MEQ/L Carbon Dioxide Level 23.9 MEQ/L Anion Gap 11 MEQ/L Blood Urea Nitrogen 27 MG/DL Creatinine 0.81 MG/DL Estimat Glomerular Filtration 70 ML/MIN Rate Random Glucose 192 MG/DL Calcium Level 8.9 MG/DL Total Bilirubin 0.3 MG/DL Aspartate Amino Transf 31 U/L (AST/SGOT) Alanine Aminotransferase 22 U/L (ALT/SGPT) Alkaline Phosphatase 143 U/L Total Protein 7.4 GM/DL Albumin 2.3 GM/DL Imaging Studies Last 24 hours Impressions Chest X-Ray 04/26/17 0000 Signed Impressions: Service Date/Time: Wednesday, April 26, 2017 05:12 - CONCLUSION: Large left pleural effusion. Yobany Guadarrama MD Objective Remarks GENERAL: Well-nourished, well-developed patient. SKIN: Warm and dry. HEAD: Normocephalic. EYES: No scleral icterus. No injection or drainage. NECK: Supple, trachea midline. No JVD or lymphadenopathy. LYMPHATIC: No adenopathy. CARDIOVASCULAR: Regular rate and rhythm without murmurs. RESPIRATORY: Breath sounds equal bilaterally. No accessory muscle use. GASTROINTESTINAL: Abdomen soft, non-tender, nondistended. EXTREMITIES: No cyanosis, or edema. MUSCULOSKELETAL: Adequate muscle tone. NEUROLOGICAL: No obvious focal deficit. Awake, alert, and oriented x3. PSYCHIATRIC: Appropriate mood and affect; insight and judgment normal. Marquis Peña MD Apr 26, 2017 09:19
--- NOTE | 2017-04-26 10:48 | RADRPT ---
EXAM DATE/TIME: 04/26/2017 10:08 [facility] COMPARISON: No previous studies available for comparison. INDICATIONS : Post thoracentesis. MEDICAL HISTORY : Metastatic uterine adenocarcinoma. SURGICAL HISTORY : Infusaport. ENCOUNTER: Initial ACUITY: 1 day PAIN SCORE: 0/10 LOCATION: Left chest FINDINGS: A single view of the chest demonstrates the patient has a left-sided moderate sized pleural effusion. There is consolidation left lung. Right lung is clear. Right-sided Infusaport catheter is in good position. Heart and mediastinum are unremarkable. Bones are unremarkable CONCLUSION: Moderate sized left pleural effusion with some infiltrate left lung base. Vic Cheng MD on April 26, 2017 at 10:33 Board Certified Radiologist. This report was verified electronically.
[2017-04-26] MEDS: SODIUM CHLORIDE 0.9% FLUSH 10 ML FLUSH IV FLUSH SCH ×2 (11:37→22:04)
[2017-04-26] MEDS ORDERED: ZOFR4TAB PO (12:43)
[2017-04-26] MEDS ORDERED: RESP: ALBUTEROL 2.5 MG/IPRATROPIUM 0.5 MG NEB (PRN) NEB (14:30)
[2017-04-26] MEDS ORDERED: ACETAMINOPHEN/HYDROcodone 325 MG/7.5 MG TAB PO PRN (14:45)
[2017-04-26] MEDS ORDERED: LACTULOSE SYRUP 20 GM/30 ML CUP PO PRN (14:45)
[2017-04-26] MEDS ORDERED: SENNOSIDES 8.6 MG TAB PO PRN (14:45)
[2017-04-26] MEDS ORDERED: ONDANSETRON HCL 4 MG/2 ML VIAL IVP PRN (14:45)
[2017-04-26] MEDS ORDERED: ACETAMINOPHEN 325 MG TAB PO PRN (14:45)
[2017-04-26] MEDS ORDERED: MAGNESIUM HYDROXIDE SUSP 30 ML CUP PO PRN (14:45)
[2017-04-26] MEDS ORDERED: BISACODYL 10 MG SUPP RECTAL PRN (14:45)
--- NOTE | 2017-04-26 14:58 | HHI.HP ---
HPI Service [facility] Primary Care Physician Marquis Peña MD Admission Diagnosis pleural effusion Diagnoses: Chief Complaint: Shortness of breath Travel History International Travel<30 Days: No Contact w/Intl Traveler <30 Da: No Traveled to Known Affected Are: No History of Present Illness 71-year-old female with uterine cancer, peritoneal carcinomatosis, adenocarcinoma left lung who presented for shortness of breath. The patient states that since Monday she has noticed some mild shortness of breath, abdominal swelling, and lower extremity edema. She saw her oncologist Dr. Peña , who is hopeful that starting the patient on chemotherapy Monday would reduce her symptoms. She did have her first chemotherapy session yesterday. She states that last night, the shortness of breath got acutely worse and she had to come to the ED for evaluation. She has been having a productive cough with clear sputum. She denies any fever, chills, or diarrhea. She does report decreased appetite lately, but has been making herself eat. She has been dealing with nausea and vomiting, but oral Zofran has been helping as outpatient. The patient had thoracentesis done earlier today and now feels much more "relaxed" and reports shortness of breath has improved. Review of Systems Except as stated in HPI: all other systems reviewed are Neg Past Family Social History Past Medical History Uterine cancer with metastasis Abdominal carcinomatosis Left lung adenocarcinoma Vertigo Past Surgical History Appendectomy Tonsillectomy Thoracentesis 2 Right chest port placement Reported Medications Reported Meds & Active Scripts Active Duoneb (Ipratropium-Albuterol Neb) 0.5-2.5 Mg/3 Ml Neb 1 Ampule NEB Q4HR NEB PRN 30 Days Nebulizer Kit/Tubing/Mout (N/A) 1 Kit Kit 1 Kit .ROUTE DIRECTED Oxygen tank (Oxygen) 1 Ea Tank 2 Liter MISA.CANULA CONTINUOUS Oxygen Concentrator Portable Gaseous 2 L/min via Nasal Cannula Continuous For 99 months Reported Zofran (Ondansetron HCl) 4 Mg Tab 4 Mg PO Q6HR PRN Aspir-81 (Aspirin) 81 Mg Tabdr 0.5 Tab PO DAILY Ginkgo Biloba (Ginkgo Biloba [place] Extract) 60 Mg Tablet 1 Mg PO DAILY Osteo Bi-Flex One A Day (Likbittgy-Lzpmmtsovyg-Nshonfc) 1 Tab 1 Tab PO DAILY Allergies: Coded Allergies: Iodine (Verified Allergy, Severe, Swelling, 04/26/17) Uncoded Allergies: CITRUS (Allergy, Severe, Swelling, 08/31/15) Active Ordered Medications Current Medications Medications (Trade) Dose Ordered Sig/Mitch Route Start Time Stop Time Status Last Admin (NS Flush) 2 ml UNSCH PRN IV FLUSH 04/26/17 07:15 (NS Flush) 2 ml BID IV FLUSH 04/26/17 09:00 04/26/17 11:37 (Narcan Inj) 0.4 mg UNSCH PRN IV 04/26/17 07:15 Family History Mother had uterine myoma Denies family history of cancer Social History Originally from [place] 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 In no acute distress. SKIN: Warm and dry. Right chest port. Clean dressing on left posterior flank thoracentesis site. HEENT: Normocephalic. Pupils equal and round. Mucous membranes pink and moist. CARDIOVASCULAR: Regular rate and rhythm. No murmur appreciated. RESPIRATORY: No accessory muscle use. Clear to auscultation. Mildly diminished breath sounds in the left lung base. GASTROINTESTINAL: Abdomen soft, non-tender, nondistended. Bowel sounds x4. MUSCULOSKELETAL: No obvious deformities. No clubbing or cyanosis. 1+ lower extremity pitting edema. NEUROLOGICAL: Awake and alert. Ambulatory, gait appears normal. Normal speech. PSYCHIATRIC: Appropriate mood and affect; insight and judgment normal. Laboratory Laboratory Tests Test 04/26/17 05:15 White Blood Count 6.9 Red Blood Count 3.71 Hemoglobin 10.3 Hematocrit 30.8 Mean Corpuscular Volume 83.0 Mean Corpuscular Hemoglobin 27.8 Mean Corpuscular Hemoglobin 33.5 Concent Red Cell Distribution Width 14.8 Platelet Count 491 Mean Platelet Volume 7.8 Neutrophils (%) (Auto) 93.8 Lymphocytes (%) (Auto) 3.9 Monocytes (%) (Auto) 2.1 Eosinophils (%) (Auto) 0.0 Basophils (%) (Auto) 0.2 Neutrophils # (Auto) 6.4 Lymphocytes # (Auto) 0.3 Monocytes # (Auto) 0.1 Eosinophils # (Auto) 0.0 Basophils # (Auto) 0.0 CBC Comment DIFF FINAL Differential Comment Prothrombin Time 11.3 Prothromb Time International 1.0 Ratio Activated Partial 25.0 Thromboplast Time Sodium Level 136 Potassium Level 4.5 Chloride Level 101 Carbon Dioxide Level 23.9 Anion Gap 11 Blood Urea Nitrogen 27 Creatinine 0.81 Estimat Glomerular Filtration 70 Rate Random Glucose 192 Calcium Level 8.9 Total Bilirubin 0.3 Aspartate Amino Transf 31 (AST/SGOT) Alanine Aminotransferase 22 (ALT/SGPT) Alkaline Phosphatase 143 Total Protein 7.4 Albumin 2.3 Result Diagram: 04/26/17 0515 04/26/17 0515 Imaging Last Impressions Chest X-Ray 04/26/17 0000 Signed Impressions: Service Date/Time: Wednesday, April 26, 2017 10:08 - CONCLUSION: Moderate sized left pleural effusion with some infiltrate left lung base. Vic Cheng MD Assessment and Plan Assessment and Plan 71-year-old female with uterine cancer, peritoneal carcinomatosis, adenocarcinoma left lung who presented for shortness of breath Recurrent malignant left lung pleural effusion with shortness of breath: Reviewed: Initial chest x-ray showed large left pleural effusion. Chest x-ray after thoracentesis shows pleural effusion decreased to moderate size. Afebrile with no leukocytosis. Echocardiogram 02/22 with normal systolic function. -Symptoms improved status post therapeutic thoracentesis 04/26/17 -Continue nebs and supplemental O2 as needed -Continue outpatient follow up with oncology Nausea and vomiting: Secondary to underlying malignancy. -Antiemetics as needed -Diet as tolerated Moderate protein calorie malnutrition with mild anasarca: Secondary to malignancy and poor oral intake. -Dietitian consult -Add ensure to meals -Trial of Lasix -Hopefully symptoms will improve with treatment of cancer as blood Uterine cancer/abdominal carcinomatosis: -Patient's oncologist, Dr. Peña, consulted, patient cleared from his perspective for discharge and continue outpatient follow-up for chemotherapy DVT prophylaxis: Lovenox Disposition: Hopefully discharge tomorrow if improved and stable Discussed Condition With Patient, Dr. Messina Attending Statement Patient evaluated in her bedroom, discussed with PA and with nurse no new issues, already seen by accounts payable specialist and okay to discharge home expected by tomorrow. Jan Weems Apr 26, 2017 14:58 Jt Pereira MD Apr 26, 2017 16:28
[2017-04-26] MEDS ORDERED: LIDOCAINE HCL 1% PF 30 ML VIAL ONE (15:06)
[2017-04-26] MEDS: FUROSEMIDE 20 MG TAB PO SCH (15:28)
--- NOTE | 2017-04-26 15:36 | RADRPT ---
EXAM DATE/TIME: 04/26/2017 08:19 [facility] COMPARISON: No previous studies available for comparison. INDICATIONS : Left pleural effusion. MEDICAL HISTORY : Arthritis. Vertigo. Pleural effusion. SURGICAL HISTORY : Tonsillectomy. Appendectomy. ENCOUNTER: Initial ACUITY: 2 days PAIN SCORE: 3/10 LOCATION: Left chest FLUID: Total volume of 2000 cc of cloudy, red fluid was removed. Fluid was discarded. Thoracentesis was therapeutic only. TECHNIQUE: 1. Ultrasound guidance for thoracentesis. 2. Thoracentesis. The risks, benefits, and alternatives to ultrasound guided thoracentesis were explained to the patien t in lay simple terms, including the risk of bleeding and infection. Written and verbal informed con sent was obtained. Appropriate area for thoracentesis was marked under ultrasound guidance with the patient in the uprig ht position. Overlying skin was prepped and draped in the usual sterile fashion and with local anest hetic, a dermatotomy was made with an 11 blade scalpel. A 6 Stateless thoracentesis catheter was placed in the pleural space and fluid was removed. Catheter was then removed and a sterile dressing applie d. There were no immediate complications. The patient tolerated the procedure well and the left the ultrasound suite in stable condition. Chest radiograph is to be obtained. CONCLUSION: Uncomplicated ultrasound guided thoracentesis. Lauro Mccabe MD on April 26, 2017 at 15:34 Board Certified Radiologist. This report was verified electronically.
[2017-04-26] MEDS ORDERED: ENOXAPARIN SODIUM 40 MG/0.4 ML SYRINGE SQ SCH (16:00)
[2017-04-26] MEDS: PROCHLORPERAZINE 25 MG SUPP RECTAL PRN (18:13)
[2017-04-26] MEDS: DOCUSATE SODIUM 50 MG/SENNA 8.6 MG TAB PO SCH (22:04)
[2017-04-27 04:00] VITALS: BP 118/62; PULSE 80; RESP 18; TEMP 97.8; O2SAT 95
[2017-04-27] MEDS ORDERED: traMADol HCL 50 MG TAB PO PRN (07:30)
[2017-04-27 08:07] LABS: AUTOMATED NEUTROPHIL # 5.5 TH/MM3 (1.8-7.7); BASOPHIL % 0.5 % (0.0-2.0); EOSINOPHIL % 0.3 % (0.0-4.0); HEMATOCRIT 29.4 % (35.0-46.0); HEMO FLAGS DIFF FINAL; LYMPH % 8.9 % (9.0-44.0); LYMPHOCYTE # 0.5 TH/MM3 (1.0-4.8); MEAN CELL VOLUME 83.7 FL (80.0-100.0); MEAN CORPUSCULAR HGB CONC 32.2 % (32.0-36.0); MONO % 1.5 % (0.0-8.0); NEUT % 88.8 % (16.0-70.0); PLATELET COUNT 342 TH/MM3 (150-450); RED BLOOD COUNT 3.51 MIL/MM3 (4.00-5.30); RED CELL DISTRIBUTION WIDTH 14.9 % (11.6-17.2); WHITE BLOOD COUNT 6.1 TH/MM3 (4.0-11.0)
[2017-04-27 08:25] VITALS: BP 122/56; PULSE 84; RESP 18; TEMP 97.8; O2SAT 94
[2017-04-27] MEDS: PROCHLORPERAZINE 25 MG SUPP RECTAL PRN (08:27)
[2017-04-27] MEDS: FUROSEMIDE 20 MG TAB PO SCH (08:27)
[2017-04-27] MEDS: SODIUM CHLORIDE 0.9% FLUSH 10 ML FLUSH IV FLUSH SCH (08:28)
[2017-04-27] MEDS: DOCUSATE SODIUM 50 MG/SENNA 8.6 MG TAB PO SCH (08:28)
[2017-04-27 08:32] LABS: POTASSIUM 3.8 MEQ/L (3.5-5.1)
[2017-04-27 09:00] VITALS: PULSE 84
--- NOTE | 2017-04-27 11:26 | HHI.PR ---
Subjective Remarks 71-year-old female with uterine cancer, peritoneal carcinomatosis, adenocarcinoma left lung who presented for shortness of breath. The patient states that since Monday she has noticed some mild shortness of breath, abdominal swelling, and lower extremity edema. She saw her oncologist Dr. Peña , who is hopeful that starting the patient on chemotherapy Monday would reduce her symptoms. She did have her first chemotherapy session yesterday. She states that last night, the shortness of breath got acutely worse and she had to come to the ED for evaluation. She has been having a productive cough with clear sputum. She denies any fever, chills, or diarrhea. She does report decreased appetite lately, but has been making herself eat. She has been dealing with nausea and vomiting, but oral Zofran has been helping as outpatient. The patient had thoracentesis done earlier today and now feels much more "relaxed" and reports shortness of breath has improved. 04/27: Seen in her bedroom no nausea, vomit or diarrhea will go home and follow with her Primary agronomy specialist. Objective Vital Signs Date Time Temp Pulse Resp B/P Pulse Ox O2 Delivery O2 Flow Rate FiO2 04/27/17 08:25 97.8 84 18 122/56 94 04/27/17 04:00 97.8 80 18 118/62 95 04/26/17 23:53 98.1 89 16 138/76 97 04/26/17 20:33 94 21 04/26/17 20:00 98.0 109 20 124/70 94 04/26/17 16:00 96.8 97 18 122/66 94 04/26/17 12:44 98.4 93 19 142/74 94 I/O 04/26/17 04/26/17 04/26/17 04/27/17 04/27/17 04/27/17 07:00 15:00 23:00 07:00 15:00 23:00 Intake Total 16 ml Balance 16 ml Intake Oral 16 ml # Voids 1 1 # Bowel Movements 0 Result Diagram: 04/27/17 0715 04/27/17 0715 Imaging Last Impressions Thoracentesis Ultrasound 04/26/17 0000 Signed Impressions: Service Date/Time: Wednesday, April 26, 2017 08:19 - CONCLUSION: Uncomplicated ultrasound guided thoracentesis. Lauro Mccabe MD Chest X-Ray 04/26/17 0000 Signed Impressions: Service Date/Time: Wednesday, April 26, 2017 10:08 - CONCLUSION: Moderate sized left pleural effusion with some infiltrate left lung base. Vic Cheng MD Procedures None Other Results Laboratory Tests Test 04/26/17 04/27/17 05:15 07:15 Prothrombin Time 11.3 SEC Prothromb Time International 1.0 RATIO Ratio Activated Partial 25.0 SEC Thromboplast Time Total Bilirubin 0.3 MG/DL Aspartate Amino Transf 31 U/L (AST/SGOT) Alanine Aminotransferase 22 U/L (ALT/SGPT) Alkaline Phosphatase 143 U/L Total Protein 7.4 GM/DL Albumin 2.3 GM/DL White Blood Count 6.1 TH/MM3 Red Blood Count 3.51 MIL/MM3 Hemoglobin 9.5 GM/DL Hematocrit 29.4 % Mean Corpuscular Volume 83.7 FL Mean Corpuscular Hemoglobin 27.0 PG Mean Corpuscular Hemoglobin 32.2 % Concent Red Cell Distribution Width 14.9 % Platelet Count 342 TH/MM3 Mean Platelet Volume 7.6 FL Neutrophils (%) (Auto) 88.8 % Lymphocytes (%) (Auto) 8.9 % Monocytes (%) (Auto) 1.5 % Eosinophils (%) (Auto) 0.3 % Basophils (%) (Auto) 0.5 % Neutrophils # (Auto) 5.5 TH/MM3 Lymphocytes # (Auto) 0.5 TH/MM3 Monocytes # (Auto) 0.1 TH/MM3 Eosinophils # (Auto) 0.0 TH/MM3 Basophils # (Auto) 0.0 TH/MM3 CBC Comment DIFF FINAL Differential Comment Sodium Level 138 MEQ/L Potassium Level 3.8 MEQ/L Chloride Level 103 MEQ/L Carbon Dioxide Level 25.0 MEQ/L Anion Gap 10 MEQ/L Blood Urea Nitrogen 31 MG/DL Creatinine 0.67 MG/DL Estimat Glomerular Filtration 87 ML/MIN Rate Random Glucose 112 MG/DL Calcium Level 8.4 MG/DL Objective Remarks GENERAL: Well-developed well-nourished. In no acute distress. SKIN: Warm and dry. Right chest port. Clean dressing on left posterior flank thoracentesis site. HEENT: Normocephalic. Pupils equal and round. Mucous membranes pink and moist. CARDIOVASCULAR: Regular rate and rhythm. No murmur appreciated. RESPIRATORY: No accessory muscle use. Clear to auscultation. Mildly diminished breath sounds in the left lung base. GASTROINTESTINAL: Abdomen soft, non-tender, nondistended. Bowel sounds x4. MUSCULOSKELETAL: No obvious deformities. No clubbing or cyanosis. 1+ lower extremity pitting edema. NEUROLOGICAL: Awake and alert. Ambulatory, gait appears normal. Normal speech. PSYCHIATRIC: Appropriate mood and affect; insight and judgment normal. Medications and IVs Current Medications Medications (Trade) Dose Ordered Sig/Mitch Route Start Time Stop Time Status Last Admin (NS Flush) 2 ml UNSCH PRN IV FLUSH 04/26/17 07:15 (NS Flush) 2 ml BID IV FLUSH 04/26/17 09:00 04/27/17 08:28 (Narcan Inj) 0.4 mg UNSCH PRN IV 04/26/17 07:15 (Zofran Inj) 4 mg Q6H PRN IVP 04/26/17 14:45 04/26/17 15:28 (Compazine Supp) 25 mg Q12H PRN RECTAL 04/26/17 14:45 04/27/17 08:27 (Lovenox Inj) 40 mg Q24H SQ 04/26/17 16:00 (Joana-Colace) 1 tab BID PO 04/26/17 21:00 04/26/17 22:04 (Milk Of Magnesia Liq) 30 ml Q12H PRN PO 04/26/17 14:45 (Senokot) 17.2 mg Q12H PRN PO 04/26/17 14:45 (Dulcolax Supp) 10 mg DAILY PRN RECTAL 04/26/17 14:45 (Lactulose Liq) 30 ml DAILY PRN PO 04/26/17 14:45 (Lasix) 20 mg DAILY PO 04/26/17 15:00 04/27/17 08:27 (Ultram) 50 mg Q8H PRN PO 04/27/17 07:30 04/27/17 10:12 A/P Assessment and Plan 71-year-old female with uterine cancer, peritoneal carcinomatosis, adenocarcinoma left lung who presented for shortness of breath Recurrent malignant left lung pleural effusion with shortness of breath: Reviewed: Initial chest x-ray showed large left pleural effusion. Chest x-ray after thoracentesis shows pleural effusion decreased to moderate size. Afebrile with no leukocytosis. Echocardiogram 02/22 with normal systolic function. -Symptoms improved status post therapeutic thoracentesis 04/26/17 -Continue nebs and supplemental O2 as needed -Continue outpatient follow up with oncology Nausea and vomiting: Secondary to underlying malignancy. Improved. -Antiemetics as needed -Tolerating diet. Moderate protein calorie malnutrition with mild anasarca: Secondary to malignancy and poor oral intake. -Dietitian consult -Add ensure to meals Uterine cancer/abdominal carcinomatosis: -Patient's oncologist, Dr. Peña, consulted, patient cleared from his perspective for discharge and continue outpatient follow-up for chemotherapy DVT prophylaxis: Lovenox Discussed Condition With Patient in the room. Discharge Planning Discharge Home. Jt Pereira MD Apr 27, 2017 11:26 Attending Statement Patient evaluated in her bedroom, discussed with PA and with nurse no new issues, already seen by process safety specialist and okay to discharge home expected by tomorrow. Jt Pereira MD Apr 27, 2017 11:26
--- NOTE | 2017-04-27 11:58 | HHI.DS ---
Discharge Summary Admission Date Apr 26, 2017 at 07:02 Discharge Date: Apr 27, 2017 Admitting Diagnosis pleural effusion (1) Pleural effusion, left ICD Code: J90 Diagnosis: Principal (2) Metastasis ICD Code: C79.9 Diagnosis: Principal Procedures Thoracentesis. Brief History - From Admission 71-year-old female with uterine cancer, peritoneal carcinomatosis, adenocarcinoma left lung who presented for shortness of breath. The patient states that since Monday she has noticed some mild shortness of breath, abdominal swelling, and lower extremity edema. She saw her oncologist Dr. Peña , who is hopeful that starting the patient on chemotherapy Monday would reduce her symptoms. She did have her first chemotherapy session yesterday. She states that last night, the shortness of breath got acutely worse and she had to come to the ED for evaluation. She has been having a productive cough with clear sputum. She denies any fever, chills, or diarrhea. She does report decreased appetite lately, but has been making herself eat. She has been dealing with nausea and vomiting, but oral Zofran has been helping as outpatient. The patient had thoracentesis done earlier today and now feels much more "relaxed" and reports shortness of breath has improved. CBC/BMP: 04/27/17 0715 04/27/17 0715 Significant Findings Laboratory Tests Test 04/26/17 04/27/17 05:15 07:15 Red Blood Count 3.71 MIL/MM3 3.51 MIL/MM3 (4.00-5.30) (4.00-5.30) Hemoglobin 10.3 GM/DL 9.5 GM/DL (11.6-15.3) (11.6-15.3) Hematocrit 30.8 % 29.4 % (35.0-46.0) (35.0-46.0) Platelet Count 491 TH/MM3 (150-450) Neutrophils (%) (Auto) 93.8 % 88.8 % (16.0-70.0) (16.0-70.0) Lymphocytes (%) (Auto) 3.9 % 8.9 % (9.0-44.0) (9.0-44.0) Lymphocytes # (Auto) 0.3 TH/MM3 0.5 TH/MM3 (1.0-4.8) (1.0-4.8) Blood Urea Nitrogen 27 MG/DL (7-18) 31 MG/DL (7-18) Estimat Glomerular Filtration 70 ML/MIN (>89) 87 ML/MIN (>89) Rate Random Glucose 192 MG/DL 112 MG/DL (74-106) (74-106) Alkaline Phosphatase 143 U/L (45-117) Albumin 2.3 GM/DL (3.4-5.0) Calcium Level 8.4 MG/DL (8.5-10.1) Imaging Last Impressions Thoracentesis Ultrasound 04/26/17 0000 Signed Impressions: Service Date/Time: Wednesday, April 26, 2017 08:19 - CONCLUSION: Uncomplicated ultrasound guided thoracentesis. Lauro Mccabe MD Chest X-Ray 04/26/17 0000 Signed Impressions: Service Date/Time: Wednesday, April 26, 2017 10:08 - CONCLUSION: Moderate sized left pleural effusion with some infiltrate left lung base. Vic Cheng MD PE at Discharge GENERAL: Well-developed well-nourished. In no acute distress. SKIN: Warm and dry. Right chest port. Clean dressing on left posterior flank thoracentesis site. HEENT: Normocephalic. Pupils equal and round. Mucous membranes pink and moist. CARDIOVASCULAR: Regular rate and rhythm. No murmur appreciated. RESPIRATORY: No accessory muscle use. Clear to auscultation. Mildly diminished breath sounds in the left lung base. GASTROINTESTINAL: Abdomen soft, non-tender, nondistended. Bowel sounds x4. MUSCULOSKELETAL: No obvious deformities. No clubbing or cyanosis. 1+ lower extremity pitting edema. NEUROLOGICAL: Awake and alert. Ambulatory, gait appears normal. Normal speech. PSYCHIATRIC: Appropriate mood and affect; insight and judgment normal. Hospital Course 71-year-old female with uterine cancer, peritoneal carcinomatosis, adenocarcinoma left lung who presented for shortness of breath. The patient states that since Monday she has noticed some mild shortness of breath, abdominal swelling, and lower extremity edema. She saw her oncologist Dr. Peña , who is hopeful that starting the patient on chemotherapy Monday would reduce her symptoms. She did have her first chemotherapy session yesterday. She states that last night, the shortness of breath got acutely worse and she had to come to the ED for evaluation. She has been having a productive cough with clear sputum. She denies any fever, chills, or diarrhea. She does report decreased appetite lately, but has been making herself eat. She has been dealing with nausea and vomiting, but oral Zofran has been helping as outpatient. The patient had thoracentesis done earlier today and now feels much more "relaxed" and reports shortness of breath has improved. 04/27: Seen in her bedroom no nausea, vomit or diarrhea will go home and follow with her Primary radiation control specialist. Assessment and Plan 71-year-old female with uterine cancer, peritoneal carcinomatosis, adenocarcinoma left lung who presented for shortness of breath Recurrent malignant left lung pleural effusion with shortness of breath: Reviewed: Initial chest x-ray showed large left pleural effusion. Chest x-ray after thoracentesis shows pleural effusion decreased to moderate size. Afebrile with no leukocytosis. Echocardiogram 02/22 with normal systolic function. status post Therapeutic Thoracentesis 04/26/17, Improving her symptomatology, she has been followed by Her Primary radiation control specialist Doctor Marquis Peña is Secondary to Metastatic Endometrial Adenocarcinoma, she was started on Palliative Chemotherapy with Carboplatin and Paclitaxel on 04/25/17 if symptoms improving okay to discharge home and follow with him as outpatient. Nausea and vomiting: Secondary to underlying malignancy. Improved. -Antiemetics as needed -Tolerating diet. Moderate protein calorie malnutrition with mild anasarca: Secondary to malignancy and poor oral intake. -Dietitian consult -Add ensure to meals Uterine cancer/abdominal carcinomatosis: -Patient's oncologist, Dr. Peña, consulted, patient cleared from his perspective for discharge and continue outpatient follow-up for chemotherapy DVT prophylaxis: Lovenox Discussed Condition With Patient in the room. Discharge Planning Discharge Home. Pt Condition on Discharge: Stable Discharge Disposition: Discharge Home Discharge Time: <= 30 minutes Discharge Instructions DIET: Follow Instructions for: As Tolerated, No Restrictions Activities you can perform: Regular-No Restrictions Jt Pereira MD Apr 27, 2017 11:58
[2017-04-27 12:01] VITALS: BP 121/68; PULSE 106; RESP 18; TEMP 98.1; O2SAT 95
== END 2017-04-27 14:01 | disposition home or self-care (01) | DRG 181 ==
LOC: NEPE 04:40 → NEDA 07:02 → N05A 11:29
PROVIDERS: ADMIT Internal Medicine; ATTEND Internal Medicine
PROC: 0W9B3ZZ Drainage of Left Pleural Cavity, Percutaneous Approach (ICD-10-PCS; principal; 2017-04-26)
DX: C34.92 Malignant neoplasm of unspecified part of left bronchus or lung (principal); C78.6 Secondary malignant neoplasm of retroperitoneum and peritoneum; J91.0 Malignant pleural effusion; E44.0 Moderate protein-calorie malnutrition; C55 Malignant neoplasm of uterus, part unspecified; R11.2 Nausea with vomiting, unspecified; M19.90 Unspecified osteoarthritis, unspecified site
CPT/HCPCS: 32555; 71010; 80048; 80053; 85025; 85610; 85730; C1729; J2405

== ENCOUNTER 2017-05-20 16:04 | Inpatient (IN) | payer MEDICARE ==
[~2017-05-20] VITALS: Ht 157.5 cm; Wt 67.0 kg
[~2017-05-20 16:04] MED LIST changes: +ZOFR4TAB PO
[2017-05-20 16:08] VITALS: BP 155/79; PULSE 116; RESP 28; TEMP 98.5; O2SAT 97
--- NOTE | 2017-05-20 16:47 | PD ---
HPI Chief Complaint: Respiratory Symptoms Time Seen by Provider: 16:22 Travel History International Travel<30 days: No Contact w/Intl Traveler<30days: No Traveled to known affect area: No History of Present Illness HPI The patient was seen and examined in the presence of the nurse. This patient complains of shortness of breath. It is gradually worsening over the last week. She has history of metastatic cancer causing malignant pleural effusion. She's had 2 thoracentesis recently. She is worried that the fluid is reaccumulating. She denies productive cough or chest pain or presyncopal symptoms. She wears oxygen 2 L around the clock. She never smoked. She is currently getting chemotherapy. Duration 7 days. Symptoms severity is moderate. No alleviating factors. PFSH Past Medical History Arthritis: Yes Asthma: Yes Autoimmune Disease: No Heart Rhythm Problems: No Cancer: Yes Cardiac Catheterization: No Cardiovascular Problems: No High Cholesterol: No Chemotherapy: Yes Congestive Heart Failure: No COPD: No Cerebrovascular Accident: No Diabetes: No Endocrine: No Gastrointestinal Disorders: No Genitourinary: No Headaches: No Heparin Induced Thrombocytopen: No Hypertension: No Immune Disorder: No Implanted Vascular Access Dvce: Yes Musculoskeletal: Yes Neurologic: Yes Psychiatric: No Reproductive: No Respiratory: Yes Immunizations Current: No Migraines: Yes (20 years ago) Seizures: No Sleep Apnea: No Thyroid Disease: No ?: Not Menopausal: Yes Past Surgical History Abdominal Surgery: No AICD: No Appendectomy: Yes Cardiac Surgery: No Coronary Artery Bypass Graft: No Ear Surgery: No Endocrine Surgery: Yes (tonsilectomy) Eye Surgery: No Genitourinary Surgery: No Gynecologic Surgery: No Joint Replacement: No Neurologic Surgery: No Oral Surgery: Yes (wisdom teeth out) Pacemaker: No Thoracic Surgery: Yes (thoracentesis today) Tonsillectomy: Yes Other Surgery: Yes Family History Family Myocardial Infarction: No Social History Alcohol Use: No Tobacco Use: No Substance Use: No Allergies-Medications (Allergen,Severity, Reaction): Coded Allergies: Iodine (Verified Allergy, Severe, Swelling, 04/26/17) Uncoded Allergies: CITRUS (Allergy, Severe, Swelling, 08/31/15) Reported Meds & Prescriptions Reported Meds & Active Scripts Active Duoneb (Ipratropium-Albuterol Neb) 0.5-2.5 Mg/3 Ml Neb 1 Ampule NEB Q4HR NEB PRN 30 Days Nebulizer Kit/Tubing/Mout (N/A) 1 Kit Kit 1 Kit .ROUTE DIRECTED Oxygen tank (Oxygen) 1 Ea Tank 2 Liter MISA.CANULA CONTINUOUS Oxygen Concentrator Portable Gaseous 2 L/min via Nasal Cannula Continuous For 99 months Reported Zofran (Ondansetron HCl) 4 Mg Tab 4 Mg PO Q6HR PRN Aspir-81 (Aspirin) 81 Mg Tabdr 0.5 Tab PO DAILY Ginkgo Biloba (Ginkgo Biloba [place] Extract) 60 Mg Tablet 1 Mg PO DAILY Osteo Bi-Flex One A Day (Yeolpaizx-Winuaaiipkg-Jbufaci) 1 Tab 1 Tab PO DAILY Review of Systems General / Constitutional: No: Fever Eyes: No: Visual changes HENT: No: Headaches Cardiovascular: No: Chest Pain or Discomfort Respiratory: Positive: Shortness of Breath Gastrointestinal: No: Abdominal Pain Genitourinary: No: Dysuria Musculoskeletal: No: Pain Skin: No Rash Neurologic: No: Weakness Psychiatric: No: Depression Endocrine: No: Polydipsia Hematologic/Lymphatic: No: Easy Bruising Physical Exam Narrative GENERAL: Well-nourished, well-developed patient who is short of breath . SKIN: Focused skin assessment reveals no rash and nodules. Skin is Warm and dry. HEAD: Atraumatic. Normocephalic. EYES: Pupils equal and round. No scleral icterus. No injection or drainage. ENT: No nasal bleeding or discharge. Mucous membranes pink and moist. NECK: Trachea midline. No JVD. CARDIOVASCULAR: Regular rate and rhythm. Occasional ectopic beats noted. No murmur appreciated. RESPIRATORY: No accessory muscle use. Clear to auscultation on the right but absent breath sounds on the left. GASTROINTESTINAL: Abdomen soft, non-tender, nondistended. Hepatic and splenic margins not palpable. MUSCULOSKELETAL: No obvious deformities. No clubbing. No cyanosis. No edema. NEUROLOGICAL: Awake and alert. No obvious cranial nerve deficits. Motor grossly within normal limits. Normal speech. PSYCHIATRIC: Appropriate mood and affect; insight and judgment normal. Data Data Last Documented VS Vital Signs Date Time Temp Pulse Resp B/P Pulse Ox O2 Delivery O2 Flow Rate FiO2 05/20/17 16:39 107 18 97 Nasal Cannula 2 05/20/17 16:08 98.5 155/79 Orders Electrocardiogram (8/12/17 ) Iv Access Insert/Monitor (05/20/17 16:32) Electrocardiogram (05/20/17 ) Chest, Single Ap (05/20/17 ) Complete Blood Count With Diff (05/20/17 16:32) Basic Metabolic Panel (Bmp) (05/20/17 16:32) Prothrombin Time / Inr (Pt) (05/20/17 16:32) Act Partial Throm Time (Ptt) (05/20/17 16:32) Admit To Inpatient (05/20/17 ) Vital Signs (Adult) Q4H (05/20/17 17:17) Activity Oob Ad Marleni (05/20/17 17:17) Psychiatric Arnp / Telemetry .CONTINUOUS (05/20/17:17) Intake + Output SMILEY.QSHIFT (05/20/17 17:17) Notify Dr: Other (05/20/17 17:17) Diet Npo (05/20/17 Dinner) Sodium Chlor 0.9% 1000 Ml Inj (Ns 1000 M (05/20/17 17:17) Sodium Chloride 0.9% Flush (Ns Flush) (05/20/17 17:30) Sodium Chloride 0.9% Flush (Ns Flush) (05/20/17 21:00) Acetaminophen (Tylenol) (05/20/17 17:30) Ondansetron Inj (Zofran Inj) (05/20/17 17:30) Basic Metabolic Panel (Bmp) (05/21/17 06:00) Complete Blood Count With Diff (05/21/17 06:00) Scd Bilateral/Knee High SMILEY.BID (05/20/17 17:17) Naloxone Inj (Narcan Inj) (05/20/17 17:30) Docusate Sodium-Senna (Joana-Colace) (05/20/17 21:00) Magnesium Hydroxide Liq (Milk Of Magnesi (05/20/17 17:30) Sennosides (Senokot) (05/20/17 17:30) Bisacodyl Supp (Dulcolax Supp) (05/20/17 17:30) Lactulose Liq (Lactulose Liq) (05/20/17 17:30) Inpatient Certification (05/20/17 ) Admit Order (Ed Use Only) (05/20/17 17:22) Labs Laboratory Tests Test 05/20/17 16:37 White Blood Count 4.5 TH/MM3 Red Blood Count 3.39 MIL/MM3 Hemoglobin 9.5 GM/DL Hematocrit 28.6 % Mean Corpuscular Volume 84.3 FL Mean Corpuscular Hemoglobin 28.1 PG Mean Corpuscular Hemoglobin 33.3 % Concent Red Cell Distribution Width 17.7 % Platelet Count 155 TH/MM3 Mean Platelet Volume 8.7 FL Neutrophils (%) (Auto) 87.2 % Lymphocytes (%) (Auto) 9.5 % Monocytes (%) (Auto) 1.7 % Eosinophils (%) (Auto) 0.6 % Basophils (%) (Auto) 1.0 % Neutrophils # (Auto) 4.0 TH/MM3 Lymphocytes # (Auto) 0.4 TH/MM3 Monocytes # (Auto) 0.1 TH/MM3 Eosinophils # (Auto) 0.0 TH/MM3 Basophils # (Auto) 0.0 TH/MM3 CBC Comment DIFF FINAL Differential Comment Prothrombin Time 12.0 SEC Prothromb Time International 1.1 RATIO Ratio Activated Partial 24.8 SEC Thromboplast Time Sodium Level 137 MEQ/L Potassium Level 3.6 MEQ/L Chloride Level 102 MEQ/L Carbon Dioxide Level 26.1 MEQ/L Anion Gap 9 MEQ/L Blood Urea Nitrogen 17 MG/DL Creatinine 0.73 MG/DL Estimat Glomerular Filtration 78 ML/MIN Rate Random Glucose 155 MG/DL Calcium Level 8.0 MG/DL MDM Medical Decision Making Medical Screen Exam Complete: Yes Emergency Medical Condition: Yes Medical Record Reviewed: Yes Differential Diagnosis Malignant pleural effusion, pneumonia, COPD Narrative Course I have reviewed the patient's electronic medical record. Reviewed her most recent admission from 2 weeks ago where she underwent thoracentesis for therapeutic reasons Her port is accessed CBC shows anemia of 9.5 Metabolic profile is normal Coagulation studies are normal I reviewed her EKG which shows sinus rhythm with ectopic beats Extended cardiac monitoring reveals sinus rhythm with some ectopy I reviewed her chest x-ray which shows reaccumulation of pleural effusion to 50 % of her left lung Patient saturations are descended at 98% on 2 L but she is tachypneic at 30-40 breaths per minute She is frail with worsening malignant effusion and tachypnea and will require admission for therapeutic thoracentesis I reviewed this with hospitalist who agrees Diagnosis Primary Impression: Pleural effusion, left Additional Impression: Shortness of breath at rest Admitting Information Admitting Physician Requests: Admit Nico Goodrich MD May 20, 2017 16:47
--- NOTE | 2017-05-20 16:54 | RADRPT ---
EXAM DATE/TIME: 05/20/2017 16:32 [facility] COMPARISON: CHEST EXPIRATION ONLY, April 26, 2017, 10:08. CHEST SINGLE AP, April 26, 2017, 5:12. INDICATIONS : Shortness of breath today. MEDICAL HISTORY : Lung cancer in left lower chest. Ovarian cancer. SURGICAL HISTORY : infusaport. ENCOUNTER: Initial ACUITY: 1 day PAIN SCORE: 7/10 LOCATION: Right lower chest FINDINGS: Single AP view of the chest. Right-sided [id number] in place. Increase in size of left pleural eff usion when compared to the prior study of 04/26/2017 at 1008. Effusion now involves approximately 50% of the left hemithorax. Left mid to lower lung consolidation versus atelectasis noted. No evidence of pneumothorax. Mild atelectasis at the right lung base. Right lung otherwise clear. Cardiomediastinal silhouette unchanged. CONCLUSION: Increase in size of left pleural effusion, involving approximately 50% of the left in the thorax. Can David MD on May 20, 2017 at 16:50 Board Certified Radiologist. This report was verified electronically.
[2017-05-20 17:03] LABS: EOSINOPHIL % 0.6 % (0.0-4.0); HEMATOCRIT 28.6 % (35.0-46.0); HEMO FLAGS DIFF FINAL; LYMPH % 9.5 % (9.0-44.0); LYMPHOCYTE # 0.4 TH/MM3 (1.0-4.8); MEAN CELL VOLUME 84.3 FL (80.0-100.0); MEAN CORPUSCULAR HEMOGLOBIN 28.1 PG (27.0-34.0); MEAN CORPUSCULAR HGB CONC 33.3 % (32.0-36.0); MONO % 1.7 % (0.0-8.0); NEUT % 87.2 % (16.0-70.0); PLATELET COUNT 155 TH/MM3 (150-450); RED BLOOD COUNT 3.39 MIL/MM3 (4.00-5.30); RED CELL DISTRIBUTION WIDTH 17.7 % (11.6-17.2); WHITE BLOOD COUNT 4.5 TH/MM3 (4.0-11.0)
[2017-05-20 17:11] LABS: APTT (PATIENT) 24.8 SEC (24.3-30.1); INTERNATIONAL NORMALIZED RATIO 1.1 RATIO
[2017-05-20 17:20] LABS: BICARBONATE 26.1 MEQ/L (21.0-32.0); POTASSIUM 3.6 MEQ/L (3.5-5.1)
[2017-05-20] MEDS ORDERED: SENNOSIDES 8.6 MG TAB PO PRN (17:30)
[2017-05-20] MEDS ORDERED: MAGNESIUM HYDROXIDE SUSP 30 ML CUP PO PRN (17:30)
[2017-05-20] MEDS ORDERED: NALOXONE HCL 0.4 MG/ML AMP IV PRN (17:30)
[2017-05-20] MEDS ORDERED: ACETAMINOPHEN 325 MG TAB PO PRN (17:30)
[2017-05-20] MEDS ORDERED: LACTULOSE SYRUP 20 GM/30 ML CUP PO PRN (17:30)
[2017-05-20] MEDS ORDERED: SODIUM CHLORIDE 0.9% FLUSH 10 ML FLUSH IV FLUSH PRN (17:30)
[2017-05-20] MEDS ORDERED: BISACODYL 10 MG SUPP RECTAL PRN (17:30)
[2017-05-20] MEDS ORDERED: FUROSEMIDE 40 MG/4 ML VIAL IV PUSH ONE (17:45)
[2017-05-20] MEDS ORDERED: POTASSIUM CHLORIDE 20 MEQ CONTROLLED RELEASE TAB PO ONE (17:45)
[2017-05-20] MEDS: SODIUM CHLOR 0.9% 1000 ML INJ 1,000 ML IV SCH (18:09)
--- NOTE | 2017-05-20 18:15 | HHI.HP ---
[facility] Jose Ansari MD Admission Diagnosis malignant pleural effusion causing dyspnea Diagnoses: Chief Complaint: Increase shortness of breath, dyspnea, bilateral lower extremity edema Travel History International Travel<30 Days: No Contact w/Intl Traveler <30 Da: No Traveled to Known Affected Are: No History of Present Illness Patient is a 71 year old with primary medical history of uterine cancer, peritoneal carcinomatosis, adenocarcinoma of the left lung, malignant pleural effusion who came into the hospital secondary to increasing shortness of breath and bilateral lower extremity edema. Patient states that for the past week her shortness of breath has increased but this morning he woke up with her bilateral legs very swollen that she needs to cut her shorts. This concerned her vision that she went to the hospital. Patient is on chemotherapy, followed by Dr. Peña in out patient oncology. States she started chemotherapy 3 weeks ago and her second cycle was last , 05/18/17. She states that her highest temp this morning was 99.4. She usually checks her temperature twice a day. She complains of bilateral lower extremity pain, radiating towards her waist, dull and noted to have ecchymotic area on the left inferolateral side of the lower leg. Reports chronic nausea, vomiting but states it has improved with her new medication that she puts under her tongue was given by Dr. Peña. Reports occassional "very tiny amount of blood when I pee." Otherwise, denies chest pain, palpitations, diarrhea, abdominal pain, cramping, dysuria. Stopped taking ASA 81 mg 2 days ago. Review of Systems Except as stated in HPI: all other systems reviewed are Neg Past Family Social History Past Medical History Uterine cancer with metastasis Abdominal carcinomatosis Left lung adenocarcinoma Vertigo Malignant pleural effusions Past Surgical History Appendectomy Tonsillectomy Thoracentesis 2 Right chest port placement Reported Medications Reported Meds & Active Scripts Active Duoneb (Ipratropium-Albuterol Neb) 0.5-2.5 Mg/3 Ml Neb 1 Ampule NEB Q4HR NEB PRN 30 Days Nebulizer Kit/Tubing/Mout (N/A) 1 Kit Kit 1 Kit .ROUTE DIRECTED Oxygen tank (Oxygen) 1 Ea Tank 2 Liter MISA.CANULA CONTINUOUS Oxygen Concentrator Portable Gaseous 2 L/min via Nasal Cannula Continuous For 99 months Reported Zofran (Ondansetron HCl) 4 Mg Tab 4 Mg PO Q6HR PRN Aspir-81 (Aspirin) 81 Mg Tabdr 0.5 Tab PO DAILY Ginkgo Biloba (Ginkgo Biloba [place] Extract) 60 Mg Tablet 1 Mg PO DAILY Osteo Bi-Flex One A Day (Ygqahawlm-Zevfngdepck-Uvrsoac) 1 Tab 1 Tab PO DAILY Allergies: Coded Allergies: Iodine (Verified Allergy, Severe, Swelling, 04/26/17) Uncoded Allergies: CITRUS (Allergy, Severe, Swelling, 08/31/15) Active Ordered Medications Current Medications Medications (Trade) Dose Ordered Sig/Mitch Route Start Time Stop Time Status Last Admin (NS 1000 ml Inj) 1,000 ml @ 83 mls/hr Q12H3M IV 05/20/17 17:17 UNV (NS Flush) 2 ml UNSCH PRN IV FLUSH 05/20/17 17:30 UNV (NS Flush) 2 ml BID IV FLUSH 05/20/17 21:00 UNV (Tylenol) 650 mg Q4H PRN PO 05/20/17 17:30 UNV (Zofran Inj) 4 mg Q6H PRN IVP 05/20/17 17:30 UNV (Narcan Inj) 0.4 mg UNSCH PRN IV 05/20/17 17:30 UNV (Joana-Colace) 1 tab BID PO 05/20/17 21:00 UNV (Milk Of Magnesia Liq) 30 ml Q12H PRN PO 05/20/17 17:30 UNV (Senokot) 17.2 mg Q12H PRN PO 05/20/17 17:30 UNV (Dulcolax Supp) 10 mg DAILY PRN RECTAL 05/20/17 17:30 UNV (Lactulose Liq) 30 ml DAILY PRN PO 05/20/17 17:30 UNV (Lasix Inj) 40 mg ONCE ONCE IV PUSH 05/20/17 17:45 05/20/17 17:46 UNV (Lasix Inj) 20 mg DAILY IV PUSH 05/21/17 09:00 UNV (KCl) 20 meq DAILY PO 05/21/17 08:00 UNV (KCl) 40 meq ONCE ONCE PO 05/20/17 17:45 05/20/17 17:46 UNV Family History Mother had uterine myoma Father had pancreatic cancer, when she was still young Social History Originally from [place]. 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 Denies alcohol use Denies Tobacco use Denies illicit drug use Physical Exam Vital Signs Vital Signs Date Time Temp Pulse Resp B/P Pulse Ox O2 Delivery O2 Flow Rate FiO2 05/20/17 16:39 107 18 97 Nasal Cannula 2 05/20/17 16:08 98.5 116 28 155/79 97 Room Air Physical Exam GENERAL: This is a thinly appearing, well-developed patient, with shortness of breath. SKIN: Ecchymotic area left lateral lower leg. warm and dry. HEAD: Atraumatic. Normocephalic. No temporal or scalp tenderness. EYES: Pupils equal round and reactive. Extraocular motions intact. No scleral icterus. No injection or drainage. ENT: Nose without bleeding. Throat without erythema. Uvula midline. Airway patent. NECK: Trachea midline. Supple. CARDIOVASCULAR: Regular rate and rhythm without murmurs, gallops, or rubs. RESPIRATORY: No wheezes, rales, or rhonchi. Left lower lobe, diminished. GASTROINTESTINAL: Abdomen soft, non-tender, nondistended. No guarding. Bowel sounds active 4. MUSCULOSKELETAL: Extremities without clubbing, cyanosis. Bilateral lower extremity +4 edema, anasarca lower trunk area. NEUROLOGICAL: Awake and alert. Cranial nerves II through XII intact. Motor and sensory grossly within normal limits. Normal speech. Laboratory Laboratory Tests Test 05/20/17 16:37 White Blood Count 4.5 Red Blood Count 3.39 Hemoglobin 9.5 Hematocrit 28.6 Mean Corpuscular Volume 84.3 Mean Corpuscular Hemoglobin 28.1 Mean Corpuscular Hemoglobin 33.3 Concent Red Cell Distribution Width 17.7 Platelet Count 155 Mean Platelet Volume 8.7 Neutrophils (%) (Auto) 87.2 Lymphocytes (%) (Auto) 9.5 Monocytes (%) (Auto) 1.7 Eosinophils (%) (Auto) 0.6 Basophils (%) (Auto) 1.0 Neutrophils # (Auto) 4.0 Lymphocytes # (Auto) 0.4 Monocytes # (Auto) 0.1 Eosinophils # (Auto) 0.0 Basophils # (Auto) 0.0 CBC Comment DIFF FINAL Differential Comment Prothrombin Time 12.0 Prothromb Time International 1.1 Ratio Activated Partial 24.8 Thromboplast Time Sodium Level 137 Potassium Level 3.6 Chloride Level 102 Carbon Dioxide Level 26.1 Anion Gap 9 Blood Urea Nitrogen 17 Creatinine 0.73 Estimat Glomerular Filtration 78 Rate Random Glucose 155 Calcium Level 8.0 Result Diagram: 05/20/17 1637 05/20/17 1637 Imaging Last Impressions Chest X-Ray 05/20/17 0000 Signed Impressions: Service Date/Time: Monday, May 20, 2017 16:32 - CONCLUSION: Increase in size of left pleural effusion, involving approximately 50%% of the left in the thorax. Can David MD Assessment and Plan Problem List: (1) Pleural effusion, left ICD Code: J90 Status: Acute (2) Shortness of breath at rest ICD Code: R06.02 Status: Acute (3) Generalized weakness ICD Code: R53.1 Status: Acute (4) Metastasis ICD Code: C79.9 Status: Acute Assessment and Plan Patient is a 71 year old with primary medical history of uterine cancer, peritoneal carcinomatosis, adenocarcinoma of the left lung, malignant pleural effusion who came into the hospital secondary to increasing shortness of breath and bilateral lower extremity edema. Recurrent malignant left lung pleural effusion with increasing shortness of breath Metastatic cancer - Chest x-ray showed increase in size of left pleural effusion, involving approximately 50% of the left thorax - Furosemide 40mg IV, KCL - IR for thoracentesis, possible pleurex placement as this is recurrent. - Will consult pulmonology, for further recommendations - Nebulizer treatments and O2 nc. Maintain >90% O2 Sat - Consult Oncology - being followed by Dr. Peña Bilateral lower extremity edema Anasarca - Lasix 40 mg IV, KCl 1 dose now - Lasix 20 mg IV, KCl daily - Bilateral lower extremity US Doppler, secondary to tenderness to palpation and increased pain as per patient - Moderate protein calorie more nutrition. Albumin 1.9 Uterine cancer/abdominal carcinomatosis - Patient just had chemotherapy started 3 weeks ago, second cycle last - Consult oncologist, Dr. Peña was following the patient - Zofran for nausea vomiting DVT prop Lovenox The exam, history, and the medical decision-making described in the above note were completed with the assistance of the mid-level provider. I reviewed and agree with the findings presented. I attest that I had a [id number] encounter with the patient on the same day, and personally performed and documented my assessment and findings in the medical record. Discussed with Patient, with PA and ER specialist and with Ultrasound to try to perform the Thoracentesis today Code Status Full code Discussed Condition With Patient, nursing, Dr. Messina Physician Certification 2 Midnight Certification Type: Admission for Inpatient Services Order for Inpatient Services The services are ordered in accordance with Medicare regulations or non- Medicare payer requirements, as applicable. In the case of services not specified as inpatient-only, they are appropriately provided as inpatient services in accordance with the 2-midnight benchmark. Estimated LOS (days): 2 days is the estimated time the patient will need to remain in the hospital, assuming treatment plan goals are met and no additional complications. Post-Hospital Plan: Home Judy Boyer May 20, 2017 18:15 Jt Pereira MD May 20, 2017 18:44
[2017-05-20 18:52] VITALS: BP 155/99; PULSE 117; RESP 18; O2SAT 98
[2017-05-20 19:00] VITALS: BP 160/72; PULSE 110; RESP 22; O2SAT 98
[2017-05-20 20:00] VITALS: BP 161/85; PULSE 115; RESP 20; TEMP 97.6; O2SAT 98
--- NOTE | 2017-05-20 20:55 | RADRPT ---
EXAM DATE/TIME: 05/20/2017 19:54 [facility] COMPARISON: US LEG BILATERAL VENOUS DOPPLER, February 21, 2017, 22:54. INDICATIONS : Bilateral leg swelling. MEDICAL HISTORY : Arthritis. Vertigo. Migraines. Emphysema. Asthma. Uterine cancer with mets. Abdominal carcinomatosi s. Left lung adenocarcinoma. Malignant pleural effusion. Chemotherapy. SURGICAL HISTORY : Tonsillectomy. Thoracentesis. ENCOUNTER: Subsequent ACUITY: 1 week PAIN SCORE: 2/10 LOCATION: Bilateral legs. TECHNIQUE: Venous ultrasound of the left and right leg was performed from the inguinal ligament to the proximal calf. Real-time, color Doppler and spectral tracing, compression and augmentation techniques were us ed. FINDINGS: RIGHT LEG: Extensive nonocclusive thrombus is identified in the common femoral vein, superficial femoral vein, a nd popliteal vein. Occlusive thrombus is seen in the peroneal vein and posterior tibial vein. LEFT LEG: Occlusive thrombus is seen throughout the superficial femoral vein popliteal vein, peroneal vein, and posterior tibial vein. CONCLUSION: 1. Extensive occlusive DVT of the left lower extremity. 2. Extensive nonocclusive thrombus of the right lower extremity. Occlusive thrombus in the right deya marcellus and posterior tibial veins. Can David MD on May 20, 2017 at 20:51 Board Certified Radiologist. This report was verified electronically.
[2017-05-20] MEDS: DOCUSATE SODIUM 50 MG/SENNA 8.6 MG TAB PO SCH (21:00)
[2017-05-20] MEDS: SODIUM CHLORIDE 0.9% FLUSH 10 ML FLUSH IV FLUSH SCH (21:17)
[2017-05-20] MEDS: HEPARIN-D5W 25,000 U/250 ML 250 ML IV SCH (21:19)
[2017-05-20] MEDS: ONDANSETRON HCL 4 MG/2 ML VIAL IVP PRN (21:39)
[2017-05-21] VITALS (7 sets, daily range): BP systolic 120–138; BP diastolic 60–87; PULSE 59–113; RESP 16–20; TEMP 96.9–98.9; O2SAT 96–99
[2017-05-21] MEDS ORDERED: PROCHLORPERAZINE INJ 10 MG/2 ML VIAL IV PUSH ONE (00:15)
[2017-05-21] MEDS ORDERED: traMADol HCL 50 MG TAB PO ONE (01:15)
[2017-05-21 04:15] LABS: AUTOMATED NEUTROPHIL # 3.6 TH/MM3 (1.8-7.7); BASOPHIL % 0.8 % (0.0-2.0); HEMATOCRIT 27.4 % (35.0-46.0); HEMO FLAGS DIFF FINAL; LYMPH % 12.1 % (9.0-44.0); LYMPHOCYTE # 0.5 TH/MM3 (1.0-4.8); MEAN CELL VOLUME 83.7 FL (80.0-100.0); MEAN CORPUSCULAR HEMOGLOBIN 28.2 PG (27.0-34.0); MEAN CORPUSCULAR HGB CONC 33.7 % (32.0-36.0); MONO % 1.4 % (0.0-8.0); NEUT % 84.7 % (16.0-70.0); PLATELET COUNT 147 TH/MM3 (150-450); RED BLOOD COUNT 3.27 MIL/MM3 (4.00-5.30); RED CELL DISTRIBUTION WIDTH 17.2 % (11.6-17.2); WHITE BLOOD COUNT 4.3 TH/MM3 (4.0-11.0)
[2017-05-21 04:35] LABS: APTT (PATIENT) 54.8 SEC (24.3-30.1)
[2017-05-21 04:42] LABS: BICARBONATE 26.3 MEQ/L (21.0-32.0); POTASSIUM 3.8 MEQ/L (3.5-5.1)
[2017-05-21] MEDS: SODIUM CHLOR 0.9% 1000 ML INJ 1,000 ML IV SCH ×3 (05:29→20:12)
[2017-05-21] MEDS: DOCUSATE SODIUM 50 MG/SENNA 8.6 MG TAB PO SCH ×2 (08:31→20:13)
[2017-05-21] MEDS: POTASSIUM CHLORIDE 20 MEQ CONTROLLED RELEASE TAB PO SCH ×2 (08:31→08:32)
[2017-05-21] MEDS: SODIUM CHLORIDE 0.9% FLUSH 10 ML FLUSH IV FLUSH SCH ×2 (08:32→20:12)
[2017-05-21] MEDS: FUROSEMIDE 20 MG/2 ML VIAL IV PUSH SCH (08:32)
[2017-05-21] MEDS: traMADol HCL 50 MG TAB PO PRN ×3 (11:06→20:11)
[2017-05-21 11:07] LABS: APTT (PATIENT) 55.1 SEC (24.3-30.1)
--- NOTE | 2017-05-21 11:29 | HHI.PR ---
Subjective Remarks Patient is a 71 year old with primary medical history of uterine cancer, peritoneal carcinomatosis, adenocarcinoma of the left lung, malignant pleural effusion who came into the hospital secondary to increasing shortness of breath and bilateral lower extremity edema. Patient states that for the past week her shortness of breath has increased but this morning he woke up with her bilateral legs very swollen that she needs to cut her shorts. This concerned her vision that she went to the hospital. Patient is on chemotherapy , followed by Dr. Peña in out patient oncology. States she started chemotherapy 3 weeks ago and her second cycle was last , 05/18/17. She states that her highest temp this morning was 99.4. She usually checks her temperature twice a day. She complains of bilateral lower extremity pain, radiating towards her waist, dull and noted to have ecchymotic area on the left inferolateral side of the lower leg. Reports chronic nausea, vomiting but states it has improved with her new medication that she puts under her tongue was given by Dr. Peña. Stopped taking ASA 81 mg 2 days ago. 05/21: Seen in her bedroom no nausea, vomit or diarrhea, receiving management as per Hematology and electrical system specialist, found with Extensive Bilateral DVT, probable Pulmonary Emboli asked for CT Angiogram by electrical system specialist. Objective Vital Signs Date Time Temp Pulse Resp B/P Pulse Ox O2 Delivery O2 Flow Rate FiO2 05/21/17 08:00 96.9 97 20 138/87 96 05/21/17 08:00 97.9 59 16 131/65 97 05/21/17 04:00 97.7 102 20 128/80 99 05/21/17 00:00 98.2 113 20 129/60 98 05/20/17 20:00 97.6 115 20 161/85 98 05/20/17 19:00 110 22 160/72 98 2 05/20/17 18:52 117 18 155/99 98 Nasal Cannula 2 05/20/17 16:39 107 18 97 Nasal Cannula 2 05/20/17 16:08 98.5 116 28 155/79 97 Room Air I/O 05/20/17 05/20/17 05/20/17 05/21/17 05/21/17 05/21/17 07:00 15:00 23:00 07:00 15:00 23:00 Intake Total 120 ml 971 ml 0 ml Output Total 150 ml 300 ml Balance -30 ml 671 ml 0 ml Intake Oral 120 ml 240 ml 0 ml IV Total 731 ml Output Urine Total 150 ml 300 ml # Bowel Movements 1 Result Diagram: 05/21/17 0405 05/21/17 0405 Imaging Last Impressions Lower Extremity Ultrasound 05/20/17 0000 Signed Impressions: Service Date/Time: Saturday, May 20, 2017 19:54 - CONCLUSION: 1. Extensive occlusive DVT of the left lower extremity. 2. Extensive nonocclusive thrombus of the right lower extremity. Occlusive thrombus in the right peroneal and posterior tibial veins. Can David MD Chest X-Ray 05/20/17 0000 Signed Impressions: Service Date/Time: Saturday, May 20, 2017 16:32 - CONCLUSION: Increase in size of left pleural effusion, involving approximately 50%% of the left in the thorax. Can David MD Procedures None Other Results Laboratory Tests Test 05/20/17 05/21/17 05/21/17 16:37 04:05 10:28 Prothrombin Time 12.0 SEC Prothromb Time International 1.1 RATIO Ratio White Blood Count 4.3 TH/MM3 Red Blood Count 3.27 MIL/MM3 Hemoglobin 9.2 GM/DL Hematocrit 27.4 % Mean Corpuscular Volume 83.7 FL Mean Corpuscular Hemoglobin 28.2 PG Mean Corpuscular Hemoglobin 33.7 % Concent Red Cell Distribution Width 17.2 % Platelet Count 147 TH/MM3 Mean Platelet Volume 8.4 FL Neutrophils (%) (Auto) 84.7 % Lymphocytes (%) (Auto) 12.1 % Monocytes (%) (Auto) 1.4 % Eosinophils (%) (Auto) 1.0 % Basophils (%) (Auto) 0.8 % Neutrophils # (Auto) 3.6 TH/MM3 Lymphocytes # (Auto) 0.5 TH/MM3 Monocytes # (Auto) 0.1 TH/MM3 Eosinophils # (Auto) 0.0 TH/MM3 Basophils # (Auto) 0.0 TH/MM3 CBC Comment DIFF FINAL Differential Comment Sodium Level 140 MEQ/L Potassium Level 3.8 MEQ/L Chloride Level 103 MEQ/L Carbon Dioxide Level 26.3 MEQ/L Anion Gap 11 MEQ/L Blood Urea Nitrogen 13 MG/DL Creatinine 0.62 MG/DL Estimat Glomerular Filtration 95 ML/MIN Rate Random Glucose 112 MG/DL Calcium Level 7.6 MG/DL Activated Partial 55.1 SEC Thromboplast Time Objective Remarks GENERAL: This is a thinly appearing, well-developed patient, with shortness of breath. SKIN: Ecchymotic area left lateral lower leg. warm and dry. HEAD: Atraumatic. Normocephalic. No temporal or scalp tenderness. EYES: Pupils equal round and reactive. Extraocular motions intact. No scleral icterus. No injection or drainage. ENT: Nose without bleeding. Throat without erythema. Uvula midline. Airway patent. NECK: Trachea midline. Supple. CARDIOVASCULAR: Regular rate and rhythm without murmurs, gallops, or rubs. RESPIRATORY: No wheezes, rales, or rhonchi. Left lower lobe, diminished. GASTROINTESTINAL: Abdomen soft, non-tender, nondistended. No guarding. Bowel sounds active 4. MUSCULOSKELETAL: Extremities without clubbing, cyanosis. Bilateral lower extremity +4 edema, anasarca lower trunk area. NEUROLOGICAL: Awake and alert. Cranial nerves II through XII intact. Motor and sensory grossly within normal limits. Normal speech. Medications and IVs Current Medications Medications (Trade) Dose Ordered Sig/Mitch Route Start Time Stop Time Status Last Admin (NS 1000 ml Inj) 1,000 ml @ 83 mls/hr Q12H3M IV 05/20/17 18:00 05/21/17 05:29 (NS Flush) 2 ml UNSCH PRN IV FLUSH 05/20/17 17:30 (NS Flush) 2 ml BID IV FLUSH 05/20/17 21:00 05/20/17 21:17 (Tylenol) 650 mg Q4H PRN PO 05/20/17 17:30 (Zofran Inj) 4 mg Q6H PRN IVP 05/20/17 17:30 05/20/17 21:39 (Narcan Inj) 0.4 mg UNSCH PRN IV 05/20/17 17:30 (Joana-Colace) 1 tab BID PO 05/20/17 21:00 (Milk Of Magnesia Liq) 30 ml Q12H PRN PO 05/20/17 17:30 (Senokot) 17.2 mg Q12H PRN PO 05/20/17 17:30 (Dulcolax Supp) 10 mg DAILY PRN RECTAL 05/20/17 17:30 (Lactulose Liq) 30 ml DAILY PRN PO 05/20/17 17:30 (Lasix Inj) 20 mg DAILY IV PUSH 05/21/17 09:00 05/21/17 08:32 Potassium Chloride 20 meq 20 meq DAILY PO 05/21/17 08:00 05/21/17 08:32 (Heparin-D5W Inj) 250 ml @ 0 mls/hr TITRATE IV 05/20/17 20:45 05/20/17 21:19 (Ultram) 50 mg Q4H PRN PO 05/21/17 10:45 05/21/17 11:06 A/P Assessment and Plan Patient is a 71 year old with primary medical history of uterine cancer, peritoneal carcinomatosis, adenocarcinoma of the left lung, malignant pleural effusion who came into the hospital secondary to increasing shortness of breath and bilateral lower extremity edema. Recurrent malignant left lung pleural effusion with increasing shortness of breath asked for Thoracentesis not yet performed. Metastatic cancer - Chest x-ray showed increase in size of left pleural effusion, involving approximately 50% of the left thorax - Furosemide 40mg IV, KCL - IR for thoracentesis, possible pleurex placement as this is recurrent. - Consulted fire crew specialist not yet seen - Nebulizer treatments and O2 nc. Maintain >90% O2 Sat - Consult Oncology - being followed by Dr. Peña, today Doctor Payton following. Bilateral lower extremity edema Anasarca - Lasix 40 mg IV, KCl 1 dose now - Lasix 20 mg IV, KCl daily Extensive bilateral DVT started on Heparin drip, asked for CT angiogram by electrical system specialist. Uterine cancer/abdominal carcinomatosis - Patient just had chemotherapy started 3 weeks ago, second cycle last - Consult oncologist, Dr. Peña was following the patient - Zofran for nausea vomiting DVT prop Heparin drip Code Status Full code Discussed Condition With Patient in the room all questions answered to the best of my abilities. Discharge Planning Once Cleared by specialists. Jt Pereira MD May 21, 2017 11:29
--- NOTE | 2017-05-21 12:26 | EKG ---
Date Performed: 05/20/2017 Time Performed: 16:26:31 PTAGE: 71 years EKG: SINUS TACHYCARDIA WITH FREQUENT SUPRAVENTRICULAR PREMATURE COMPLEXES NONSPECIFIC T-WAVE ABN ORMALITY ABNORMAL RHYTHM ECG PREVIOUS TRACING : 02/20/2017 21.42 Compared to prior tracing no significant change DOCTOR: William Silvestre Interpretating Date/Time 05/21/2017 12:23:28
--- NOTE | 2017-05-21 13:59 | MB ---
cc: ESE PEÑA MD, RUBY ANNE E. M.D. DATE OF CONSULTATION: 05/21/2017. REASON FOR CONSULTATION / CHIEF COMPLAINT: Malignant pleural effusion and history of metastatic adenocarcinoma. REFERRING PHYSICIAN: Dr. Boyer HISTORY OF PRESENT ILLNESS Ms. Cross is a pleasant 71-year-old woman well-known patient to Dr. Ese Peña. She has metastatic uterine / endometrial carcinoma / adenocarcinoma. She has a presentation of malignant ascites associated with hypermetabolic activity involving the omentum. She also has malignant pleural effusions. She is on palliative chemotherapy with carboplatin and Taxol. She is pending a consultation with gynecologic oncologist, Dr. Frederick. She had a second cycle of carboplatin and Taxol on May 18. She reports that she noted the leg swelling at the time of her visit with Dr. Peña on May 18. She noted the swelling but believed it to be related to fluid retention. She was given some Lasix. She took it for a day. Her swelling does not improve. Her swelling had become progressively worse, which worried her. This prompted her to come into the emergency room on 05/20. On further questioning, she was also noted to be short of breath. She reports the more prominent symptom was the leg swelling. She has had previous ultrasound of the lower extremities on February 21, 2017 which was negative for deep venous thrombosis. Ultrasound of the lower extremities now shows extensive occlusive DVT of the left lower extremity and extensive nonocclusive thrombus of the right lower extremity and occlusive thrombus in the right peroneal and below knee veins. She has bilateral lower extremity deep venous thromboses. A CT angiogram has not been performed. VQ scan ordered. She was started on anticoagulant therapy with unfractionated heparin. She is pending a thoracentesis in light of symptoms. Her pleural effusion seems more prominent on the left as compared to the right. Ms. Cross continues to have symptoms of shortness of breath, which is chronic, and the leg swelling has not worsened. She is tolerating the anticoagulant therapy well. She denies any bleeding. No melena. No bright red blood per rectum. She denies any other symptoms. She has no chest pain. No changes in bowel habits. She has tolerated her chemotherapy well. She has chronic normocytic anemia. Her renal function is stable. She denies any urinary complaints. The rest of her review of systems is negative. PAST MEDICAL HISTORY: 1. Metastatic endometrial adenocarcinoma. 2. Malignant left pleural effusion. 3. Arthritis. 4. Migraine headaches. 5. Peritoneal carcinomatosis. 6. Rheumatoid arthritis. 7. Vertigo. 8. New bilateral lower extremity deep venous thromboses. PAST SURGICAL HISTORY: 1. Appendectomy. 2. Port placement. 3. Tonsillectomy. 4. Therapeutic and diagnostic left-sided thoracentesis. ALLERGIES: 1. CITRUS. 2. IODINE. FAMILY HISTORY: Negative for cancer. However, she reports a significant family history of cancer to the other physician. Review of Dr. Peña's note suggests that the mother at age 70 of a tumor and the father at age 60 of pancreas, presumably a pancreas cancer. SOCIAL HISTORY: She is . 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 She was never a smoker. She drinks occasionally. She denies any illicit drug use. PHYSICAL EXAMINATION: VITAL SIGNS: Temperature 96.9, heart rate 97, respiratory 20, blood pressure 138/87, saturation 96%. GENERAL: Ms. Cross is a well-developed, well-nourished elderly woman with some alopecia. She is awake, alert, oriented and very analytical. HEAD, EYES, EARS, NOSE, THROAT: Her pupils are round and reactive to light and accommodation. Oropharynx is clear. NECK: The neck is supple with no adenopathy. LUNGS: Diminished breath sounds in the left lung base. CARDIOVASCULAR: Exam reveals tachycardia. ABDOMEN: Abdomen is benign. EXTREMITIES: Lower extremities with bilateral swelling 1+ pitting edema. Pulses are appreciated. There is some ecchymosis and bruising in the medial aspect inferior to the left knee. LABORATORY DATA: As described above. Creatinine is normal. Glucose 112. Hemoglobin 9.2. ASSESSMENT AND PLAN: Mrs. Cross is a 71-year-old woman originally from [place] diagnosed with metastatic uterine / endometrial adenocarcinoma with malignant ascites and malignant left-sided pleural effusion receiving palliative chemotherapy with carboplatin and Taxol. Her course is complicated by extensive bilateral lower extremity deep venous thromboses. They appear to be acute in onset on clinical history. She was started on anticoagulant therapy with unfractionated heparin. I had a lengthy discussion with Mrs. Cross regarding the options for anticoagulant therapy. We discussed the use of Coumadin versus a new oral anticoagulant. She prefers to have an agent that she can reverse. She reports not being able to wait two or three days for the new oral anticoagulant to wear off if she should need a thoracentesis in the future. She is aware of the reversal agent for coumadin and not available for the new oral anticoagulants. We discussed continuing her on unfractionated heparin until her thoracentesis tomorrow. She can be started on Coumadin after that. We discussed bridging therapy with low molecular weight heparin. She is willing to learn how to give herself injections, or at least get assistance in oncology clinic to get injections to bridge her to a therapeutic INR. I will obtain a CT angiogram to rule out concurrent pulmonary embolism. She is high risk for a pulmonary embolism. VQ scan will be difficult to interpret due pleural effusions. We discussed risks and benefits of anticoagulant therapy. Her treatment for her metastatic adenocarcinoma is per Dr. Peña. He will resume her care when he returns tomorrow. Her questions were answered to her satisfaction. Information on coumadin will be provided. MD LAYLA Downs/NARA /11:28 AM /1:36 PM NAKIA
--- NOTE | 2017-05-21 14:01 | PD.RAD ---
Post US Procedure Prog Note Pre Procedure Diagnosis: (1) Pleural effusion, left Post Procedure Diagnosis: (1) Pleural effusion, left Procedure Date: May 21, 2017 Supervising Radiologist: Aleks Shelton Anesthesia: Local Plan of Activity Patient to Unit: Nursing Unit Patient Condition: Fair See PACS Report for procedural detail/treatment Drainage Procedure Procedure 1 Imaging Guidance: Ultrasound Side: Left Procedure Type: Thoracentesis Swedish: 6 Drainage: Suction Fluid Description: Bloody Aleks Shelton MD May 21, 2017 14:01
--- NOTE | 2017-05-21 14:06 | RADRPT ---
EXAM DATE/TIME: 05/21/2017 12:55 [facility] COMPARISON: CHEST SINGLE AP, May 20, 2017, 16:32. INDICATIONS : Shortness of breath for one day. DOSE: 8.7 mCi Tc99m MAA IV 1.1 mCi Tc99m DTPA aerosol MEDICAL HISTORY : Metastatic, lung. SURGICAL HISTORY : Tonsillectomy. Appendectomy. Right chest port. ENCOUNTER: Initial ACUITY: 1 day PAIN SCALE: 1/10 LOCATION: chest TECHNIQUE: Following five minutes of tidal breathing of DTPA aerosol, planar images of the lungs were performed in eight projections. The patient was then injected with MAA, and eight-view perfusion scan was perf ormed. FINDINGS: There is near complete absence of ventilation and perfusion to the left lung, some preservation of fl ow and aeration in the upper lung zone. This corresponds to an enormous left effusion noted on chest radiograph. Perfusion in the contralateral right lung is relatively homogeneous. CONCLUSION: Strictly indeterminate scan, however tenting toward relatively low likelihood of pulmonary embolism g iven the constellation of findings. Aleks Shelton MD on May 21, 2017 at 14:03 Board Certified Radiologist. This report was verified electronically.
--- NOTE | 2017-05-21 14:47 | RADRPT ---
EXAM DATE/TIME: 05/20/2017 20:13 [facility] COMPARISON: No previous studies available for comparison. INDICATIONS : Left pleural effusion. MEDICAL HISTORY : Arthritis. Vertigo. Migraines. Emphysema. Asthma. Uterine cancer with mets. Abdominal carcinomatosi s. Left lung adenocarcinoma. Malignant pleural effusion. Chemotherapy. SURGICAL HISTORY : Tonsillectomy. ENCOUNTER: [facility] ACUITY: 1 week PAIN SCORE: 7/10 LOCATION: Left chest FLUID: Total volume of 1500 cc of clear, red fluid was removed. Fluid was discarded. Thoracentesis was therapeutic only. TECHNIQUE: 1. Ultrasound guidance for thoracentesis. 2. Thoracentesis. The risks, benefits, and alternatives to ultrasound guided thoracentesis were explained to the patien t in lay simple terms, including the risk of bleeding and infection. Written and verbal informed con sent was obtained. Appropriate area for thoracentesis was marked under ultrasound guidance with the patient in the uprig ht position. Overlying skin was prepped and draped in the usual sterile fashion and with local anest hetic, a dermatotomy was made with an 11 blade scalpel. A 6 Kinyarwanda thoracentesis catheter was placed in the pleural space and fluid was removed. Catheter was then removed and a sterile dressing applie d. There were no immediate complications. The patient tolerated the procedure well and the left the ultrasound suite in stable condition. Chest radiograph is to be obtained. CONCLUSION: Uncomplicated ultrasound guided thoracentesis. Aleks Shelton MD on May 21, 2017 at 14:45 Board Certified Radiologist. This report was verified electronically.
--- NOTE | 2017-05-21 14:52 | RADRPT ---
EXAM DATE/TIME: 05/21/2017 14:48 [facility] COMPARISON: CHEST SINGLE AP, May 20, 2017, 16:32. CT PULMONARY ANGIOGRAM, February 22, 2017, 9:31. INDICATIONS : Status post thoracentesis. MEDICAL HISTORY : Carcinoma, lung. SURGICAL HISTORY : Tonsillectomy. Appendectomy. Right chest port. ENCOUNTER: Initial ACUITY: 1 day PAIN SCORE: 0/10 LOCATION: Left chest. FINDINGS: There has been decrease in left pleural effusion. No evidence of pneumothorax post thoracentesis. Inf iltrate and/or atelectasis persists extensively on the left and mildly in the right base. There is le ss cardiac contours are grossly stable. Right chest port remains in place. CONCLUSION: No pneumothorax Aleks Shelton MD on May 21, 2017 at 14:48 Board Certified Radiologist. This report was verified electronically.
[2017-05-21] MEDS: ONDANSETRON HCL 4 MG/2 ML VIAL IVP PRN ×2 (15:26→22:23)
--- NOTE | 2017-05-21 17:26 | MB ---
cc: MAXIMILIAN YAO M.D. DATE OF CONSULTATION 05/21/2017 REASON FOR CONSULTATION Pleural effusion. HISTORY OF PRESENT ILLNESS The patient is a 71-year-old female with known history of metastatic uterine cancer with malignant ascites and pleural effusion, admitting with increasing shortness of breath and increasing ankle edema. She has evidence of extensive DVT as well. Chest x-ray increasing left pleural effusion. The patient is in ultrasound for thoracentesis as we speak. History is obtained from the patient's record. PAST MEDICAL HISTORY Is that of: 1. The uterine adenocarcinoma with malignant ascites and effusion. 2. Previous tonsillectomy. 3. Appendectomy. 4. She had thoracentesis twice in the past. 5. She has a right chest port. MEDICATIONS Her medications at present include: 1. Nebulized albuterol/ ipratropium. 2. Oxygen at 2 liters via nasal cannula. 3. Osteo Biflex. 4. [place]ing[place] biloba. ALLERGIES IODINE. CITRUS. FAMILY HISTORY Mother had uterine myoma. Father had prostate cancer, SOCIAL HISTORY Does not smoke, does not drink and does not use drugs. PHYSICAL EXAMINATION VITAL SIGNS: Are stable, temperature of 98.5, pulse 108, respiratory rate 18, blood pressure 150/70. LABORATORY DATA Her white count is 4.5, hemoglobin 9.5, hematocrit 28, platelets at 155,000. Sodium 137, potassium 3.6, BUN 17, creatinine 0.7. Chest x-ray increasing left pleural effusion. Ultrasound of the lower extremities with extensive DVT left lower extremity and a nonocclusive thrombus of the right lower extremity of the right peroneal and posterior tibial veins. IMPRESSION 1. Increasing left pleural effusion. 2. Extensive DVT. 3. Metastatic uterine cancer with both malignant, pleural and peritoneal fluid. PLAN The patient is undergoing thoracentesis at this time which is fine however, this is her third thoracentesis. In the future placement of a chest tube and pleurodesis on the left side would be appropriate. She is receiving palliative chemotherapy at present. Oxygen therapy will be given as needed. Bronchodilators or pulmonary toilet. We will follow up the patient's care with you. Maximilian Yao MD WWW/ELADIO /3:16 PM /5:07 PM
[2017-05-21] MEDS: HEPARIN-D5W 25,000 U/250 ML 250 ML IV SCH (20:18)
[2017-05-22] VITALS: BP 113/62; PULSE 85; RESP 20; TEMP 97.2; O2SAT 98
[2017-05-22 04:00] VITALS: BP 127/65; PULSE 80; RESP 20; TEMP 97.3; O2SAT 94
[2017-05-22 06:02] LABS: APTT (PATIENT) 69.6 SEC (24.3-30.1)
[2017-05-22] MEDS: ONDANSETRON HCL 4 MG/2 ML VIAL IVP PRN ×2 (06:25→17:34)
[2017-05-22] MEDS: traMADol HCL 50 MG TAB PO PRN ×4 (06:26→21:25)
--- NOTE | 2017-05-22 08:29 | HHI.PR ---
Subjective Remarks Patient is a 71 year old with primary medical history of uterine cancer, peritoneal carcinomatosis, adenocarcinoma of the left lung, malignant pleural effusion who came into the hospital secondary to increasing shortness of breath and bilateral lower extremity edema. Patient states that for the past week her shortness of breath has increased but this morning he woke up with her bilateral legs very swollen that she needs to cut her shorts. This concerned her vision that she went to the hospital. Patient is on chemotherapy , followed by Dr. Peña in out patient oncology. States she started chemotherapy 3 weeks ago and her second cycle was last , 05/18/17. She states that her highest temp this morning was 99.4. She usually checks her temperature twice a day. She complains of bilateral lower extremity pain, radiating towards her waist, dull and noted to have ecchymotic area on the left inferolateral side of the lower leg. Reports chronic nausea, vomiting but states it has improved with her new medication that she puts under her tongue was given by Dr. Peña. Stopped taking ASA 81 mg 2 days ago. 05/21: Seen in her bedroom no nausea, vomit or diarrhea, receiving management as per Hematology and security services specialist, found with Extensive Bilateral DVT, probable Pulmonary Emboli asked for CT Angiogram by security services specialist. 05/22: Stable in her bedroom, security services specialist following, with diagnosis of Metastatic Uterine/Endometrial Adenocarcinoma with malignant Ascites and Malignant left sided pleural effusion receiving palliative chemotherapy with Carboplatin and Taxol, Complicated by Extensive Lower extremity Deep venous thrombosis/PE, recommended to continue with Unfractionated Heparin until Thoracentesis and then start Coumadin Followed by water resource specialist Doctor Maximilian recommended periodical CXR. Objective Vital Signs Date Time Temp Pulse Resp B/P Pulse Ox O2 Delivery O2 Flow Rate FiO2 05/22/17 04:00 97.3 80 20 127/65 94 05/22/17 00:00 97.2 85 20 113/62 98 05/21/17 20:09 97 Nasal Cannula 2.00 05/21/17 20:00 97.4 98 20 120/63 97 05/21/17 15:30 96.9 96 17 130/68 97 05/21/17 15:00 98.9 99 17 128/73 97 05/21/17 12:00 96.9 100 19 136/74 97 I/O 8/05/21/17 05/21/17 05/22/17 05/22/17 05/22/17 07:00 15:00 23:00 07:00 15:00 23:00 Intake Total 971 ml 587 ml 788 ml 604 ml Output Total 300 ml 500 ml 200 ml Balance 671 ml 87 ml 788 ml 404 ml Intake Oral 240 ml 0 ml 240 ml 0 ml IV Total 731 ml 587 ml 400 ml 500 ml Other 148 ml 104 ml Output Urine Total 300 ml 500 ml 200 ml # Voids 2 # Bowel Movements 1 0 1 Result Diagram: 05/21/17 0405 05/21/17 0405 Imaging Last Impressions Lung Scan-VQ Nuclear Medicine 05/21/17 1336 Signed Impressions: Service Date/Time: Sunday, May 21, 2017 12:55 - CONCLUSION: Strictly indeterminate scan, however tenting toward relatively low likelihood of pulmonary embolism given the constellation of findings. Aleks Shelton MD Thoracentesis Ultrasound 05/21/17 0000 Signed Impressions: Service Date/Time: Saturday, May 20, 2017 20:13 - CONCLUSION: Uncomplicated ultrasound guided thoracentesis. Aleks Shelton MD Chest X-Ray 05/21/17 0000 Signed Impressions: Service Date/Time: Sunday, May 21, 2017 14:48 - CONCLUSION: No pneumothorax Aleks Shelton MD Lower Extremity Ultrasound 05/20/17 0000 Signed Impressions: Service Date/Time: Saturday, May 20, 2017 19:54 - CONCLUSION: 1. Extensive occlusive DVT of the left lower extremity. 2. Extensive nonocclusive thrombus of the right lower extremity. Occlusive thrombus in the right peroneal and posterior tibial veins. Can David MD Procedures Left Thoracentesis 05/21/17 Other Results Laboratory Tests Test 05/20/17 05/21/17 05/22/17 16:37 04:05 05:20 Prothrombin Time 12.0 SEC Prothromb Time International 1.1 RATIO Ratio White Blood Count 4.3 TH/MM3 Red Blood Count 3.27 MIL/MM3 Hemoglobin 9.2 GM/DL Hematocrit 27.4 % Mean Corpuscular Volume 83.7 FL Mean Corpuscular Hemoglobin 28.2 PG Mean Corpuscular Hemoglobin 33.7 % Concent Red Cell Distribution Width 17.2 % Platelet Count 147 TH/MM3 Mean Platelet Volume 8.4 FL Neutrophils (%) (Auto) 84.7 % Lymphocytes (%) (Auto) 12.1 % Monocytes (%) (Auto) 1.4 % Eosinophils (%) (Auto) 1.0 % Basophils (%) (Auto) 0.8 % Neutrophils # (Auto) 3.6 TH/MM3 Lymphocytes # (Auto) 0.5 TH/MM3 Monocytes # (Auto) 0.1 TH/MM3 Eosinophils # (Auto) 0.0 TH/MM3 Basophils # (Auto) 0.0 TH/MM3 CBC Comment DIFF FINAL Differential Comment Sodium Level 140 MEQ/L Potassium Level 3.8 MEQ/L Chloride Level 103 MEQ/L Carbon Dioxide Level 26.3 MEQ/L Anion Gap 11 MEQ/L Blood Urea Nitrogen 13 MG/DL Creatinine 0.62 MG/DL Estimat Glomerular Filtration 95 ML/MIN Rate Random Glucose 112 MG/DL Calcium Level 7.6 MG/DL Activated Partial 69.6 SEC Thromboplast Time Objective Remarks GENERAL: Well developed, in no acute distress. SKIN: Ecchymotic area left lateral lower leg. warm and dry. HEAD: Atraumatic. Normocephalic. No temporal or scalp tenderness. EYES: Pupils equal round and reactive. Extraocular motions intact. No scleral icterus. No injection or drainage. ENT: Nose without bleeding. Throat without erythema. Uvula midline. Airway patent. NECK: Trachea midline. Supple. CARDIOVASCULAR: Regular rate and rhythm without murmurs, gallops, or rubs. RESPIRATORY: No wheezes, rales, or rhonchi. Left lower lobe, diminished. GASTROINTESTINAL: Abdomen soft, non-tender, nondistended. No guarding. Bowel sounds active 4. MUSCULOSKELETAL: Extremities without clubbing, cyanosis. Bilateral lower extremity +4 edema, anasarca lower trunk area. NEUROLOGICAL: Awake and alert. Cranial nerves II through XII intact. Motor and sensory grossly within normal limits. Normal speech. Medications and IVs Current Medications Medications (Trade) Dose Ordered Sig/Mitch Route Start Time Stop Time Status Last Admin (NS 1000 ml Inj) 1,000 ml @ 83 mls/hr Q12H3M IV 05/20/17 18:00 05/21/17 20:12 (NS Flush) 2 ml UNSCH PRN IV FLUSH 05/20/17 17:30 (NS Flush) 2 ml BID IV FLUSH 05/20/17 21:00 05/20/17 21:17 (Tylenol) 650 mg Q4H PRN PO 05/20/17 17:30 (Zofran Inj) 4 mg Q6H PRN IVP 05/20/17 17:30 05/22/17 06:25 (Narcan Inj) 0.4 mg UNSCH PRN IV 05/20/17 17:30 (Joana-Colace) 1 tab BID PO 05/20/17 21:00 (Milk Of Magnesia Liq) 30 ml Q12H PRN PO 05/20/17 17:30 (Senokot) 17.2 mg Q12H PRN PO 05/20/17 17:30 (Dulcolax Supp) 10 mg DAILY PRN RECTAL 05/20/17 17:30 (Lactulose Liq) 30 ml DAILY PRN PO 05/20/17 17:30 (Lasix Inj) 20 mg DAILY IV PUSH 05/21/17 09:00 05/21/17 08:32 Potassium Chloride 20 meq 20 meq DAILY PO 05/21/17 08:00 05/21/17 08:32 (Heparin-D5W Inj) 250 ml @ 0 mls/hr TITRATE IV 05/20/17 20:45 05/21/17 20:18 (Ultram) 50 mg Q4H PRN PO 05/21/17 10:45 05/22/17 06:26 A/P Assessment and Plan Patient is a 71 year old with primary medical history of uterine cancer, peritoneal carcinomatosis, adenocarcinoma of the left lung, malignant pleural effusion who came into the hospital secondary to increasing shortness of breath and bilateral lower extremity edema. Recurrent malignant left lung pleural effusion with increasing shortness of breath asked for Thoracentesis not yet performed. Metastatic cancer - Chest x-ray showed increase in size of left pleural effusion, involving approximately 50% of the left thorax - Furosemide 40mg IV, KCL - Status post Thoracentesis, as per Oncology started on Coumadin and recommended for discharge in am tomorrow. - Nebulizer treatments and O2 nc. Maintain >90% O2 Sat -as per water resource specialist follow up with CXR regularly, Bilateral lower extremity edema Anasarca - Continue diuretics as outpatient. Extensive bilateral DVT started on Heparin drip, asked for CT angiogram by security services specialist. changed to Lovenox and Warfarin and discharge in am tomorrow. Uterine cancer/abdominal carcinomatosis - Patient just had chemotherapy started 3 weeks ago, second cycle last - Zofran for nausea vomiting DVT prop Lovenox and Warfarin. Code Status Full code Discussed Condition With Patient in the room all questions answered to the best of my abilities. Discussed with Oncology [employer]ER Discharge Planning Cleared by Oncology to discharge in am tomorrow. Jt Pereira MD May 22, 2017 08:29 Jt Pereira MD May 22, 2017 08:29
[2017-05-22 08:38] VITALS: BP 123/87; PULSE 85; RESP 20; TEMP 97.8; O2SAT 97
--- NOTE | 2017-05-22 08:44 | PD.ONC.PN ---
Subjective Subjective Remarks Afebrile overnight. Feeling a bit queasy this morning. No vomiting. dyspnea improved but some shortness of breath still present. Objective Data Date Time Temp Pulse Resp B/P Pulse Ox O2 Delivery O2 Flow Rate FiO2 05/22/17 04:00 97.3 80 20 127/65 94 05/22/17 00:00 97.2 85 20 113/62 98 05/21/17 20:09 97 Nasal Cannula 2.00 05/21/17 20:00 97.4 98 20 120/63 97 05/21/17 15:30 96.9 96 17 130/68 97 05/21/17 15:00 98.9 99 17 128/73 97 05/21/17 12:00 96.9 100 19 136/74 97 05/22/17 05/22/17 05/22/17 06:59 14:59 22:59 Intake Total 604 ml Output Total 200 ml Balance 404 ml Result Diagram: 05/21/17 0405 05/21/17 0405 Laboratory Results Laboratory Tests Test 05/21/17 05/22/17 10:28 05:20 Activated Partial 55.1 SEC 69.6 SEC Thromboplast Time Imaging Studies Last 24 hours Impressions Lung Scan-VQ Nuclear Medicine 05/21/17 1336 Signed Impressions: Service Date/Time: Sunday, May 21, 2017 12:55 - CONCLUSION: Strictly indeterminate scan, however tenting toward relatively low likelihood of pulmonary embolism given the constellation of findings. Aleks Shelton MD Administered Medications Medications (Trade) Dose Ordered Sig/Mitch Route PRN Reason Start Time Stop Time Status Last Admin Dose Admin Sodium Chloride (NS 1000 ml Inj) 1,000 ml @ 83 mls/hr Q12H3M IV 05/20/17 18:00 05/21/17 20:12 Sodium Chloride (NS Flush) 2 ml BID IV FLUSH 05/20/17 21:00 05/20/17 21:17 Ondansetron HCl (Zofran Inj) 4 mg Q6H PRN IVP NAUSEA OR VOMITING 05/20/17 17:30 05/22/17 06:25 Furosemide (Lasix Inj) 20 mg DAILY IV PUSH 05/21/17 09:00 05/21/17 08:32 Potassium Chloride 20 meq 20 meq DAILY PO 05/21/17 08:00 05/21/17 08:32 Heparin Sodium/ Dextrose (Heparin-D5W Inj) 250 ml @ 0 mls/hr TITRATE IV 05/20/17 20:45 05/21/17 20:18 Tramadol HCl (Ultram) 50 mg Q4H PRN PO PAIN SCALE 6 TO 10 05/21/17 10:45 05/22/17 06:26 Objective Remarks GENERAL: Pleasant elderly female upright in bed. On 2L O2 via NC SKIN: Warm and dry. HEAD: Normocephalic. EYES: No injection or drainage. NECK: Supple, trachea midline. CARDIOVASCULAR: Regular rate and rhythm RESPIRATORY: diminished along left base. anterior young clear. on 2L O2 GASTROINTESTINAL: Abdomen soft, non-tender, nondistended. EXTREMITIES: No cyanosis. BLE with edema, R>L MUSCULOSKELETAL: Adequate muscle tone. NEUROLOGICAL: No obvious focal deficit. Awake, alert, and oriented x3. Assessment/Plan Problem List: (1) Pleural effusion, left Status: Acute Plan: --s/p thoracentesis. --malignant left sided pleural effusion (2) DVT (deep venous thrombosis) Status: Acute Plan: --on heparin gtt --Ultrasound of the lower extremities --> extensive occlusive DVT of the left lower extremity and extensive nonocclusive thrombus of the right lower extremity and occlusive thrombus in the right peroneal and below knee veins. She has bilateral lower extremity deep venous thromboses. --V/Q scan--low probability of PE (3) Endometrial carcinoma Status: Acute Plan: --metastatic uterine / endometrial carcinoma / adenocarcinoma. --had a presentation of malignant ascites associated with hypermetabolic activity involving the omentum. also has malignant pleural effusions. --on palliative chemotherapy with carboplatin and Taxol. pending a consultation with gynecologic oncologist, Dr. Frederick. --had a second cycle of carboplatin and Taxol on May 18. Assessment 71y/o female with malignant pleural effusion and history of metastatic adenocarcinoma. h/o Metastatic endometrial adenocarcinoma. Malignant left pleural effusion.Arthritis. Migraine headaches. Peritoneal carcinomatosis. Rheumatoid arthritis. Vertigo. New bilateral lower extremity deep venous thromboses. Appendectomy. Port placement. Tonsillectomy. Therapeutic and diagnostic left-sided thoracentesis. Plan 1. stop heparin. start Lovenox/coumadin 2. If feeling improved tomorrow, patient could be discharged and follow up in clinic 3. monitor CBC Attending Statement The exam, history, and the medical decision-making described in the above note were completed with the assistance of the mid-level provider. I reviewed and agree with the findings presented. I attest that I had a [id number] encounter with the patient on the same day, and personally performed and documented my assessment and findings in the medical record. Pt was seen and examined. Agree with the clinical exam findings as documented above. Subjectively, the patient reports improvement in the swelling for lower extremities, she reports improved mobility of her knees and less pain. She however continues to have nausea and vomiting and tells me she has not been able to eat much since breakfast. She feels uncomfortable about leaving the hospital tomorrow morning due to the persistent nausea. She seems to respond well to Zofran and would like to continue this before meals. She denies overt bleeding, is now on Lovenox with bridging to warfarin. Recommendations: 1. Bilateral lower extremity deep venous thromboses: Continue anticoagulation with therapeutic dose Lovenox with bridging to warfarin. I will coordinate outpatient PT/INR checks and will manage warfarin dosing to maintain her INR between 2 and 3. 2. Nausea and vomiting: Schedule Zofran; oral dissolvable tablets prior to each meal. 3. Metastatic endometrial carcinoma: The patient is clearly struggling with the current regimen of carboplatin plus Taxol as she has ended up in the hospital after each dosing. I will either significantly dose reduce going forward or I will eliminate one of the 2 chemotherapeutic agents. Problem Qualifiers (1) DVT (deep venous thrombosis): Qualified Code: I82.493 - Acute deep vein thrombosis (DVT) of other specified vein of both lower extremities Luz Marina Yee May 22, 2017 08:44 Marquis Peña MD May 22, 2017 19:03
[2017-05-22] MEDS: FUROSEMIDE 20 MG/2 ML VIAL IV PUSH SCH (08:55)
[2017-05-22] MEDS: POTASSIUM CHLORIDE 20 MEQ CONTROLLED RELEASE TAB PO SCH (08:55)
[2017-05-22] MEDS: DOCUSATE SODIUM 50 MG/SENNA 8.6 MG TAB PO SCH ×2 (08:55→21:00)
[2017-05-22] MEDS: SODIUM CHLORIDE 0.9% FLUSH 10 ML FLUSH IV FLUSH SCH ×2 (08:55→21:28)
[2017-05-22] MEDS: ENOXAPARIN SODIUM 80 MG/0.8 ML SYRINGE SQ SCH ×2 (08:58→21:25)
[2017-05-22 12:27] VITALS: BP 129/72; PULSE 99; RESP 20; TEMP 97.6; O2SAT 100
--- NOTE | 2017-05-22 15:59 | HHI.PR ---
Subjective Remarks alert no sob at rest less SOB post thoracentesis Objective Vital Signs Date Time Temp Pulse Resp B/P Pulse Ox O2 Delivery O2 Flow Rate FiO2 05/22/17 12:27 97.6 99 20 129/72 100 05/22/17 08:55 Nasal Cannula 2.00 05/22/17 08:38 97.8 85 20 123/87 97 05/22/17 04:00 97.3 80 20 127/65 94 05/22/17 00:00 97.2 85 20 113/62 98 05/21/17 20:09 97 Nasal Cannula 2.00 05/21/17 20:00 97.4 98 20 120/63 97 I/O 05/21/17 05/21/17 05/21/17 05/22/17 05/22/17 05/22/17 07:00 15:00 23:00 07:00 15:00 23:00 Intake Total 971 ml 587 ml 788 ml 604 ml 777 ml Output Total 300 ml 500 ml 200 ml Balance 671 ml 87 ml 788 ml 404 ml 777 ml Intake Oral 240 ml 0 ml 240 ml 0 ml IV Total 731 ml 587 ml 400 ml 500 ml 777 ml Other 148 ml 104 ml Output Urine Total 300 ml 500 ml 200 ml # Voids 2 # Bowel Movements 1 0 1 Result Diagram: 05/21/17 0405 05/21/17 0405 Procedures Left Thoracentesis 05/21/17 Objective Remarks GENERAL: extr: +++ edema SKIN: Warm and dry. HEAD: Atraumatic. Normocephalic. EYES: Pupils equal and round. No scleral icterus. No injection or drainage. ENT: No nasal bleeding or discharge. Mucous membranes pink and moist. NECK: Trachea midline. No JVD. CARDIOVASCULAR: Regular rate and rhythm. RESPIRATORY: No accessory muscle use. decrease breath sounds at basis GASTROINTESTINAL: Abdomen soft, non-tender, nondistended. Hepatic and splenic margins not palpable. MUSCULOSKELETAL: Extremities without clubbing, cyanosis, or edema. No obvious deformities. NEUROLOGICAL: Awake and alert. No obvious cranial nerve deficits. Motor grossly within normal limits. Five out of 5 muscle strength in the arms and legs. Normal speech. PSYCHIATRIC: Appropriate mood and affect; insight and judgment normal. Laboratory Tests Test 05/20/17 05/21/17 05/21/17 05/22/17 16:37 04:05 10:28 05:20 Red Blood Count 3.39 MIL/MM3 3.27 MIL/MM3 (4.00-5.30) (4.00-5.30) Hemoglobin 9.5 GM/DL 9.2 GM/DL (11.6-15.3) (11.6-15.3) Hematocrit 28.6 % 27.4 % (35.0-46.0) (35.0-46.0) Red Cell Distribution Width 17.7 % (11.6-17.2) Neutrophils (%) (Auto) 87.2 % 84.7 % (16.0-70.0) (16.0-70.0) Lymphocytes # (Auto) 0.4 TH/MM3 0.5 TH/MM3 (1.0-4.8) (1.0-4.8) Prothrombin Time 12.0 SEC (9.8-11.6) Estimat Glomerular Filtration 78 ML/MIN (>89) Rate Random Glucose 155 MG/DL 112 MG/DL (74-106) (74-106) Calcium Level 8.0 MG/DL 7.6 MG/DL (8.5-10.1) (8.5-10.1) Platelet Count 147 TH/MM3 (150-450) Activated Partial 54.8 SEC 55.1 SEC 69.6 SEC Thromboplast Time (24.3-30.1) (24.3-30.1) (24.3-30.1) Assessment and Plan Assessment and Plan ass: RESPIRATORY FAILURE PLEURAL EFFUSION DVT METASTATIC UTERINE CANCER PLAN O2 NEEDED ANTICOAGS F/U CXRAY PERIODICALLY Maximilian Yao MD May 22, 2017 15:59
[2017-05-22 16:00] VITALS: BP 118/65; PULSE 92; RESP 16; TEMP 95.4; O2SAT 97
[2017-05-22] MEDS: WARFARIN SOD 2.5 MG TAB PO SCH (16:45)
[2017-05-22] MEDS: SODIUM CHLOR 0.9% 1000 ML INJ 1,000 ML IV SCH (16:46)
[2017-05-22 20:00] VITALS: BP 125/77; PULSE 93; RESP 18; TEMP 98.1; O2SAT 98
[2017-05-22] MEDS: PROMETHAZINE INJ 25 MG/ML VIAL IM PRN (21:25)
[2017-05-23] VITALS (7 sets, daily range): BP systolic 120–135; BP diastolic 69–80; PULSE 96–110; RESP 16–18; TEMP 96.2–98.4; O2SAT 96–99
[2017-05-23] MEDS: PROMETHAZINE INJ 25 MG/ML VIAL IM PRN ×2 (05:55→15:50)
[2017-05-23] MEDS: traMADol HCL 50 MG TAB PO PRN ×2 (05:55→17:54)
[2017-05-23 06:34] LABS: AUTOMATED NEUTROPHIL # 1.7 TH/MM3 (1.8-7.7); BASOPHIL % 0.8 % (0.0-2.0); EOSINOPHIL # 0.1 TH/MM3 (0-0.4); EOSINOPHIL % 3.2 % (0.0-4.0); HEMATOCRIT 25.7 % (35.0-46.0); HEMO FLAGS DIFF FINAL; LYMPH % 18.3 % (9.0-44.0); LYMPHOCYTE # 0.4 TH/MM3 (1.0-4.8); MEAN CELL VOLUME 83.4 FL (80.0-100.0); MEAN CORPUSCULAR HEMOGLOBIN 28.2 PG (27.0-34.0); MEAN CORPUSCULAR HGB CONC 33.8 % (32.0-36.0); MONO % 1.2 % (0.0-8.0); NEUT % 76.5 % (16.0-70.0); PLATELET COUNT 163 TH/MM3 (150-450); RED BLOOD COUNT 3.08 MIL/MM3 (4.00-5.30); RED CELL DISTRIBUTION WIDTH 17.7 % (11.6-17.2); WHITE BLOOD COUNT 2.3 TH/MM3 (4.0-11.0)
[2017-05-23 06:43] LABS: ANION GAP 7 MEQ/L (5-15); AST (GOT) 34 U/L (15-37); BICARBONATE 29.3 MEQ/L (21.0-32.0); BLOOD UREA NITROGEN 12 MG/DL (7-18); CHLORIDE 101 MEQ/L (98-107); GLOMERULAR FILTRATION RATE 134 ML/MIN (>89); POTASSIUM 3.1 MEQ/L (3.5-5.1); SODIUM (NA) 137 MEQ/L (136-145)
[2017-05-23 06:49] LABS: ALKALINE PHOSPHATASE 104 U/L (45-117); ALT (GPT) 19 U/L (10-53); TOTAL BILIRUBIN ADULT 0.3 MG/DL (0.2-1.0)
[2017-05-23] MEDS: ONDANSETRON ODT 4 MG TAB PO SCH ×3 (08:00→17:00)
[2017-05-23] MEDS: DOCUSATE SODIUM 50 MG/SENNA 8.6 MG TAB PO SCH ×2 (09:00→21:00)
[2017-05-23] MEDS: ENOXAPARIN SODIUM 80 MG/0.8 ML SYRINGE SQ SCH ×2 (09:11→21:51)
[2017-05-23] MEDS: POTASSIUM CHLORIDE 20 MEQ CONTROLLED RELEASE TAB PO SCH (09:11)
[2017-05-23] MEDS: FUROSEMIDE 20 MG/2 ML VIAL IV PUSH SCH (09:12)
[2017-05-23] MEDS: SODIUM CHLORIDE 0.9% FLUSH 10 ML FLUSH IV FLUSH SCH ×2 (09:13→21:00)
--- NOTE | 2017-05-23 10:07 | HHI.PR ---
Subjective Remarks Patient is a 71 year old with primary medical history of uterine cancer, peritoneal carcinomatosis, adenocarcinoma of the left lung, malignant pleural effusion who came into the hospital secondary to increasing shortness of breath and bilateral lower extremity edema. Patient states that for the past week her shortness of breath has increased but this morning he woke up with her bilateral legs very swollen that she needs to cut her shorts. This concerned her vision that she went to the hospital. Patient is on chemotherapy , followed by Dr. Peña in out patient oncology. States she started chemotherapy 3 weeks ago and her second cycle was last , 05/18/17. She states that her highest temp this morning was 99.4. She usually checks her temperature twice a day. She complains of bilateral lower extremity pain, radiating towards her waist, dull and noted to have ecchymotic area on the left inferolateral side of the lower leg. Reports chronic nausea, vomiting but states it has improved with her new medication that she puts under her tongue was given by Dr. Peña. Stopped taking ASA 81 mg 2 days ago. 05/21: Seen in her bedroom no nausea, vomit or diarrhea, receiving management as per Hematology and inventory control specialist, found with Extensive Bilateral DVT, probable Pulmonary Emboli asked for CT Angiogram by inventory control specialist. 05/22: Stable in her bedroom, inventory control specialist following, with diagnosis of Metastatic Uterine/Endometrial Adenocarcinoma with malignant Ascites and Malignant left sided pleural effusion receiving palliative chemotherapy with Carboplatin and Taxol, Complicated by Extensive Lower extremity Deep venous thrombosis/PE, recommended to continue with Unfractionated Heparin until Thoracentesis and then start Coumadin Followed by erosion control specialist Doctor Maximilian recommended periodical CXR. 05/23: Seen in her bedroom no new issues Improving her bilateral swollen legs, okay to discharge from Oncology standpoint, she has today Electrolyte derangement with Potassium level 3.1 and magnesium level 1.3 given replacement and following, no nausea, vomit or diarrhea. Objective Vital Signs Date Time Temp Pulse Resp B/P Pulse Ox O2 Delivery O2 Flow Rate FiO2 05/23/17 08:00 96.8 100 16 124/72 98 05/23/17 07:43 Nasal Cannula 2.00 05/23/17 04:00 96.2 96 18 135/72 98 05/23/17 00:00 96.8 100 18 135/72 99 05/22/17 22:25 18 05/22/17 20:30 Nasal Cannula 2.00 05/22/17 20:00 98.1 93 18 125/77 98 05/22/17 16:00 95.4 92 16 118/65 97 05/22/17 12:27 97.6 99 20 129/72 100 I/O 05/22/17 05/22/17 05/22/17 05/23/17 05/23/17 05/23/17 06:59 14:59 22:59 06:59 14:59 22:59 Intake Total 604 ml 777 ml 0 ml Output Total 200 ml 150 ml Balance 404 ml 777 ml -150 ml 0 ml Intake Oral 0 ml IV Total 500 ml 777 ml 0 ml Other 104 ml Output Urine Total 200 ml Emesis 150 ml # Voids 2 2 # Bowel Movements 1 1 Result Diagram: 05/23/17 0600 05/23/17 0600 Imaging Last Impressions Lung Scan-VQ Nuclear Medicine 05/21/17 1336 Signed Impressions: Service Date/Time: Sunday, May 21, 2017 12:55 - CONCLUSION: Strictly indeterminate scan, however tenting toward relatively low likelihood of pulmonary embolism given the constellation of findings. Aleks Shelton MD Thoracentesis Ultrasound 05/21/17 0000 Signed Impressions: Service Date/Time: Saturday, May 20, 2017 20:13 - CONCLUSION: Uncomplicated ultrasound guided thoracentesis. Aleks Shelton MD Chest X-Ray 05/21/17 0000 Signed Impressions: Service Date/Time: Sunday, May 21, 2017 14:48 - CONCLUSION: No pneumothorax Aleks Shelton MD Lower Extremity Ultrasound 05/20/17 0000 Signed Impressions: Service Date/Time: Saturday, May 20, 2017 19:54 - CONCLUSION: 1. Extensive occlusive DVT of the left lower extremity. 2. Extensive nonocclusive thrombus of the right lower extremity. Occlusive thrombus in the right peroneal and posterior tibial veins. Can David MD Procedures Left Thoracentesis 05/21/17 Other Results Laboratory Tests Test 05/22/17 05/23/17 05:20 06:00 Activated Partial 69.6 SEC Thromboplast Time White Blood Count 2.3 TH/MM3 Red Blood Count 3.08 MIL/MM3 Hemoglobin 8.7 GM/DL Hematocrit 25.7 % Mean Corpuscular Volume 83.4 FL Mean Corpuscular Hemoglobin 28.2 PG Mean Corpuscular Hemoglobin 33.8 % Concent Red Cell Distribution Width 17.7 % Platelet Count 163 TH/MM3 Mean Platelet Volume 8.3 FL Neutrophils (%) (Auto) 76.5 % Lymphocytes (%) (Auto) 18.3 % Monocytes (%) (Auto) 1.2 % Eosinophils (%) (Auto) 3.2 % Basophils (%) (Auto) 0.8 % Neutrophils # (Auto) 1.7 TH/MM3 Lymphocytes # (Auto) 0.4 TH/MM3 Monocytes # (Auto) 0.0 TH/MM3 Eosinophils # (Auto) 0.1 TH/MM3 Basophils # (Auto) 0.0 TH/MM3 CBC Comment DIFF FINAL Differential Comment Prothrombin Time 11.0 SEC Prothromb Time International 1.0 RATIO Ratio Sodium Level 137 MEQ/L Potassium Level 3.1 MEQ/L Chloride Level 101 MEQ/L Carbon Dioxide Level 29.3 MEQ/L Anion Gap 7 MEQ/L Blood Urea Nitrogen 12 MG/DL Creatinine 0.46 MG/DL Estimat Glomerular Filtration 134 ML/MIN Rate Random Glucose 87 MG/DL Calcium Level 7.9 MG/DL Total Bilirubin 0.3 MG/DL Aspartate Amino Transf 34 U/L (AST/SGOT) Alanine Aminotransferase 19 U/L (ALT/SGPT) Alkaline Phosphatase 104 U/L Total Protein 5.7 GM/DL Albumin 1.8 GM/DL Objective Remarks GENERAL: Well developed, in no acute distress. SKIN: Ecchymotic area left lateral lower leg. warm and dry. HEAD: Atraumatic. Normocephalic. No temporal or scalp tenderness. EYES: Pupils equal round and reactive. Extraocular motions intact. No scleral icterus. No injection or drainage. ENT: Nose without bleeding. Throat without erythema. Uvula midline. Airway patent. NECK: Trachea midline. Supple. CARDIOVASCULAR: Regular rate and rhythm without murmurs, gallops, or rubs. RESPIRATORY: No wheezes, rales, or rhonchi. Left lower lobe, diminished. GASTROINTESTINAL: Abdomen soft, non-tender, nondistended. No guarding. Bowel sounds active 4. MUSCULOSKELETAL: Extremities without clubbing, cyanosis. Improving leg Edema. NEUROLOGICAL: Awake and alert. Cranial nerves II through XII intact. Motor and sensory grossly within normal limits. Normal speech. Medications and IVs Current Medications Medications (Trade) Dose Ordered Sig/Mitch Route Start Time Stop Time Status Last Admin (NS Flush) 2 ml UNSCH PRN IV FLUSH 05/20/17 17:30 (NS Flush) 2 ml BID IV FLUSH 05/20/17 21:00 05/23/17 09:13 (Tylenol) 650 mg Q4H PRN PO 05/20/17 17:30 (Narcan Inj) 0.4 mg UNSCH PRN IV 05/20/17 17:30 (Joana-Colace) 1 tab BID PO 05/20/17 21:00 (Milk Of Magnesia Liq) 30 ml Q12H PRN PO 05/20/17 17:30 (Senokot) 17.2 mg Q12H PRN PO 05/20/17 17:30 (Dulcolax Supp) 10 mg DAILY PRN RECTAL 05/20/17 17:30 (Lactulose Liq) 30 ml DAILY PRN PO 05/20/17 17:30 (Lasix Inj) 20 mg DAILY IV PUSH 05/21/17 09:00 05/23/17 09:12 (KCl) 20 meq DAILY PO 05/21/17 08:00 05/23/17 09:11 (Ultram) 50 mg Q4H PRN PO 05/21/17 10:45 05/23/17 05:55 Enoxaparin Sodium 70 mg 70 mg Q12H SQ 05/22/17 09:00 05/23/17 09:11 (Coumadin Consult Pharmacy) 0 ml @ 0 mls/hr UNSCH OTHER 05/22/17 08:45 (Coumadin) 2.5 mg DAILY@16 PO 05/22/17 16:00 05/22/17 16:45 (Zofran Odt) 4 mg TIDAC PO 05/23/17 08:00 05/23/17 08:00 (Phenergan Inj) 12.5 mg Q6H PRN IM 05/22/17 21:00 05/23/17 05:55 (Coumadin) 2.5 mg ONCE ONCE PO 05/23/17 16:00 05/23/17 16:01 A/P Assessment and Plan Patient is a 71 year old with primary medical history of uterine cancer, peritoneal carcinomatosis, adenocarcinoma of the left lung, malignant pleural effusion who came into the hospital secondary to increasing shortness of breath and bilateral lower extremity edema. Recurrent malignant left lung pleural effusion with increasing shortness of breath asked for Thoracentesis not yet performed. Metastatic cancer - Chest x-ray showed increase in size of left pleural effusion, involving approximately 50% of the left thorax - Furosemide 40mg IV, KCL - Status post Thoracentesis, as per Oncology started on Coumadin and recommended for discharge in am tomorrow. - Nebulizer treatments and O2 nc. Maintain >90% O2 Sat -as per erosion control specialist follow up with CXR regularly, Bilateral lower extremity edema Anasarca - Continue diuretics as outpatient. Improving, Extensive bilateral DVT started on Heparin drip, asked for CT angiogram by inventory control specialist. changed to Lovenox and Warfarin and discharge today but was not possible due to Electrolyte derangement will replace and discharge home on [facility] Uterine cancer/abdominal carcinomatosis - Patient just had chemotherapy started 3 weeks ago, second cycle last - Zofran for nausea vomiting DVT prop Lovenox and Warfarin. Code Status Full code Discussed Condition With Patient in the room all questions answered to the best of my abilities. Discharge Planning Expected by tomorrow. Jt Pereira MD May 23, 2017 10:07
[2017-05-23] MEDS: POTASSIUM CHLOR 20 MEQ PREMIX 100 ML IV SCH ×2 (12:02→13:00)
[2017-05-23] MEDS: WARFARIN SOD 2.5 MG TAB PO SCH (15:50)
[2017-05-23] MEDS ORDERED: WARFARIN SOD 2.5 MG TAB PO ONE (16:00)
[2017-05-23 17:56] LABS: MAGNESIUM 1.3 MG/DL (1.5-2.5)
[2017-05-23] MEDS ORDERED: MAGNESIUM SULFATE 1 GM PREMIX 100 ML IV SCH (18:30)
[2017-05-23] MEDS: MAGNESIUM SULFATE 1 GM PREMIX 100 ML IV SCH ×2 (21:43→23:34)
[2017-05-24] VITALS: BP 122/73; PULSE 108; RESP 17; TEMP 97; O2SAT 97
[2017-05-24 04:00] VITALS: BP 120/71; PULSE 91; RESP 17; TEMP 97.4; O2SAT 97
[2017-05-24 08:00] VITALS: BP 128/68; PULSE 100; RESP 17; TEMP 97.6; O2SAT 94
[2017-05-24 08:21] LABS: MAGNESIUM 1.8 MG/DL (1.5-2.5); POTASSIUM 3.6 MEQ/L (3.5-5.1)
[2017-05-24] MEDS ORDERED: POTASSIUM CHLORIDE 20 MEQ CONTROLLED RELEASE TAB PO ONE (08:45)
[2017-05-24] MEDS: traMADol HCL 50 MG TAB PO PRN (08:57)
[2017-05-24] MEDS: ONDANSETRON ODT 4 MG TAB PO SCH ×2 (08:58→11:50)
[2017-05-24] MEDS: MAGNESIUM SULFATE 1 GM PREMIX 100 ML IV SCH ×2 (08:58→10:03)
[2017-05-24] MEDS: POTASSIUM CHLORIDE 20 MEQ CONTROLLED RELEASE TAB PO SCH (08:58)
[2017-05-24] MEDS: DOCUSATE SODIUM 50 MG/SENNA 8.6 MG TAB PO SCH (08:59)
[2017-05-24] MEDS: SODIUM CHLORIDE 0.9% FLUSH 10 ML FLUSH IV FLUSH SCH (08:59)
[2017-05-24] MEDS: ENOXAPARIN SODIUM 80 MG/0.8 ML SYRINGE SQ SCH (09:00)
[2017-05-24] MEDS ORDERED: MAGNESIUM OXIDE 400 MG TAB PO SCH (09:00)
[2017-05-24] MEDS ORDERED: FUROSEMIDE 40 MG TAB PO SCH (09:00)
--- NOTE | 2017-05-24 09:37 | HHI.PR ---
Subjective Remarks Patient is a 71 year old with primary medical history of uterine cancer, peritoneal carcinomatosis, adenocarcinoma of the left lung, malignant pleural effusion who came into the hospital secondary to increasing shortness of breath and bilateral lower extremity edema. Patient states that for the past week her shortness of breath has increased but this morning he woke up with her bilateral legs very swollen that she needs to cut her shorts. This concerned her vision that she went to the hospital. Patient is on chemotherapy , followed by Dr. Peña in out patient oncology. States she started chemotherapy 3 weeks ago and her second cycle was last , 05/18/17. She states that her highest temp this morning was 99.4. She usually checks her temperature twice a day. She complains of bilateral lower extremity pain, radiating towards her waist, dull and noted to have ecchymotic area on the left inferolateral side of the lower leg. Reports chronic nausea, vomiting but states it has improved with her new medication that she puts under her tongue was given by Dr. Peña. Stopped taking ASA 81 mg 2 days ago. 05/21: Seen in her bedroom no nausea, vomit or diarrhea, receiving management as per Hematology and economic specialist, found with Extensive Bilateral DVT, probable Pulmonary Emboli asked for CT Angiogram by economic specialist. 05/22: Stable in her bedroom, economic specialist following, with diagnosis of Metastatic Uterine/Endometrial Adenocarcinoma with malignant Ascites and Malignant left sided pleural effusion receiving palliative chemotherapy with Carboplatin and Taxol, Complicated by Extensive Lower extremity Deep venous thrombosis/PE, recommended to continue with Unfractionated Heparin until Thoracentesis and then start Coumadin Followed by financial assistance specialist Doctor Maximilian recommended periodical CXR. 05/23: Seen in her bedroom no new issues Improving her bilateral swollen legs, okay to discharge from Oncology standpoint, she has today Electrolyte derangement with Potassium level 3.1 and magnesium level 1.3 given replacement and following. 05/24: Stable in her bedroom, improving condition markedly, discussed with her about Salt consumption she will need to stop taking salt to avoid this high overload state, seen with nurse Mr. Fink in the room no new issues. she will go home with [facility] Objective Vital Signs Date Time Temp Pulse Resp B/P Pulse Ox O2 Delivery O2 Flow Rate FiO2 05/24/17 08:00 97.6 100 17 128/68 94 05/24/17 04:00 97.4 91 17 120/71 97 05/24/17 00:00 97.0 108 17 122/73 97 05/23/17 21:00 107 05/23/17 20:00 98.4 110 17 130/80 97 05/23/17 18:09 05/23/17 16:00 98.0 106 17 120/69 96 05/23/17 13:32 05/23/17 12:00 96.3 109 16 124/69 97 05/23/17 10:17 I/O 05/23/17 05/23/17 05/23/17 05/24/17 05/24/17 05/24/17 07:00 15:00 23:00 07:00 15:00 23:00 Intake Total 720 ml 240 ml 240 ml Output Total 1400 ml 300 ml Balance -680 ml -60 ml 240 ml Intake Oral 720 ml 240 ml 240 ml IV Total 0 ml Output Urine Total 1400 ml 300 ml # Voids 2 2 # Bowel Movements 1 1 1 Result Diagram: 05/23/17 0600 05/24/17 0633 Imaging Last Impressions Lung Scan- Nuclear Medicine 05/21/17 1336 Signed Impressions: Service Date/Time: Sunday, May 21, 2017 12:55 - CONCLUSION: Strictly indeterminate scan, however tenting toward relatively low likelihood of pulmonary embolism given the constellation of findings. Aleks Shelton MD Thoracentesis Ultrasound 05/21/17 0000 Signed Impressions: Service Date/Time: Saturday, May 20, 2017 20:13 - CONCLUSION: Uncomplicated ultrasound guided thoracentesis. Aleks Shelton MD Chest X-Ray 05/21/17 0000 Signed Impressions: Service Date/Time: Sunday, May 21, 2017 14:48 - CONCLUSION: No pneumothorax Aleks Shelton MD Lower Extremity Ultrasound 05/20/17 0000 Signed Impressions: Service Date/Time: Saturday, May 20, 2017 19:54 - CONCLUSION: 1. Extensive occlusive DVT of the left lower extremity. 2. Extensive nonocclusive thrombus of the right lower extremity. Occlusive thrombus in the right peroneal and posterior tibial veins. Can David MD Procedures Left Thoracentesis 05/21/17 Other Results Laboratory Tests Test 05/22/17 05/23/17 05/23/17 05/24/17 05:20 06:00 15:30 06:33 Activated Partial 69.6 SEC Thromboplast Time White Blood Count 2.3 TH/MM3 Red Blood Count 3.08 MIL/MM3 Hemoglobin 8.7 GM/DL Hematocrit 25.7 % Mean Corpuscular Volume 83.4 FL Mean Corpuscular Hemoglobin 28.2 PG Mean Corpuscular Hemoglobin 33.8 % Concent Red Cell Distribution Width 17.7 % Platelet Count 163 TH/MM3 Mean Platelet Volume 8.3 FL Neutrophils (%) (Auto) 76.5 % Lymphocytes (%) (Auto) 18.3 % Monocytes (%) (Auto) 1.2 % Eosinophils (%) (Auto) 3.2 % Basophils (%) (Auto) 0.8 % Neutrophils # (Auto) 1.7 TH/MM3 Lymphocytes # (Auto) 0.4 TH/MM3 Monocytes # (Auto) 0.0 TH/MM3 Eosinophils # (Auto) 0.1 TH/MM3 Basophils # (Auto) 0.0 TH/MM3 CBC Comment DIFF FINAL Differential Comment Sodium Level 137 MEQ/L Chloride Level 101 MEQ/L Carbon Dioxide Level 29.3 MEQ/L Anion Gap 7 MEQ/L Blood Urea Nitrogen 12 MG/DL Creatinine 0.46 MG/DL Estimat Glomerular Filtration 134 ML/MIN Rate Random Glucose 87 MG/DL Calcium Level 7.9 MG/DL Total Bilirubin 0.3 MG/DL Aspartate Amino Transf 34 U/L (AST/SGOT) Alanine Aminotransferase 19 U/L (ALT/SGPT) Alkaline Phosphatase 104 U/L Total Protein 5.7 GM/DL Albumin 1.8 GM/DL Phosphorus Level 2.6 MG/DL Prothrombin Time 11.0 SEC Prothromb Time International 1.0 RATIO Ratio Potassium Level 3.6 MEQ/L Magnesium Level 1.8 MG/DL Objective Remarks GENERAL: Well developed, in no acute distress. SKIN: Ecchymotic area left lateral lower leg. warm and dry. HEAD: Atraumatic. Normocephalic. No temporal or scalp tenderness. EYES: Pupils equal round and reactive. Extraocular motions intact. No scleral icterus. No injection or drainage. ENT: Nose without bleeding. Throat without erythema. Uvula midline. Airway patent. NECK: Trachea midline. Supple. CARDIOVASCULAR: Regular rate and rhythm without murmurs, gallops, or rubs. RESPIRATORY: No wheezes, rales, or rhonchi. Left lower lobe, diminished. GASTROINTESTINAL: Abdomen soft, non-tender, nondistended. No guarding. Bowel sounds active 4. MUSCULOSKELETAL: Extremities without clubbing, cyanosis. Improving leg Edema. NEUROLOGICAL: Awake and alert. Cranial nerves II through XII intact. Motor and sensory grossly within normal limits. Normal speech. Medications and IVs Current Medications Medications (Trade) Dose Ordered Sig/Mitch Route Start Time Stop Time Status Last Admin (NS Flush) 2 ml UNSCH PRN IV FLUSH 05/20/17 17:30 (NS Flush) 2 ml BID IV FLUSH 05/20/17 21:00 05/24/17 08:59 (Tylenol) 650 mg Q4H PRN PO 05/20/17 17:30 (Narcan Inj) 0.4 mg UNSCH PRN IV 05/20/17 17:30 (Joana-Colace) 1 tab BID PO 05/20/17 21:00 05/24/17 08:59 (Milk Of Magnesia Liq) 30 ml Q12H PRN PO 05/20/17 17:30 (Senokot) 17.2 mg Q12H PRN PO 05/20/17 17:30 (Dulcolax Supp) 10 mg DAILY PRN RECTAL 05/20/17 17:30 (Lactulose Liq) 30 ml DAILY PRN PO 05/20/17 17:30 (KCl) 20 meq DAILY PO 05/21/17 08:00 05/24/17 08:58 (Ultram) 50 mg Q4H PRN PO 05/21/17 10:45 05/24/17 08:57 Enoxaparin Sodium 70 mg 70 mg Q12H SQ 05/22/17 09:00 05/24/17 09:00 (Coumadin Consult Pharmacy) 0 ml @ 0 mls/hr UNSCH OTHER 05/22/17 08:45 (Coumadin) 2.5 mg DAILY@16 PO 05/22/17 16:00 05/23/17 15:50 (Zofran Odt) 4 mg TIDAC PO 05/23/17 08:00 05/24/17 08:58 (Phenergan Inj) 12.5 mg Q6H PRN IM 05/22/17 21:00 05/23/17 15:50 Furosemide 40 mg 40 mg DAILY PO 05/24/17 09:00 05/24/17 08:58 (Magnesium Sulfate 1 Gm Premix) 100 ml @ 100 mls/hr Q1H IV 05/24/17 08:45 05/24/17 10:44 05/24/17 08:58 (Mag-Ox) 400 mg DAILY PO 05/24/17 09:00 05/24/17 08:59 (Coumadin) 5 mg ONCE ONCE PO 05/24/17 16:00 05/24/17 16:01 A/P Assessment and Plan Patient is a 71 year old with primary medical history of uterine cancer, peritoneal carcinomatosis, adenocarcinoma of the left lung, malignant pleural effusion who came into the hospital secondary to increasing shortness of breath and bilateral lower extremity edema. Recurrent malignant left lung pleural effusion with increasing shortness of breath asked for Thoracentesis not yet performed. Metastatic cancer - Chest x-ray showed increase in size of left pleural effusion, involving approximately 50% of the left thorax - Furosemide 40mg IV, KCL - Status post Thoracentesis, as per Oncology started on Coumadin and recommended for discharge home will go on Lovenox and Warfarin. - Nebulizer treatments and O2 nc. Maintain >90% O2 Sat -as per financial assistance specialist follow up with CXR regularly, Bilateral lower extremity edema Anasarca - Continue diuretics as outpatient. Improving, Discussed with patient and recommended to stop taking salt will continue diuretics and replace Potassium and magnesium follow by PCP and Oncology. Extensive bilateral DVT started on Heparin drip, asked for CT angiogram by economic specialist. changed to Lovenox and Warfarin and discharge today but was not possible due to Electrolyte derangement will replace and discharge home on [facility] Uterine cancer/abdominal carcinomatosis - Patient just had chemotherapy started 3 weeks ago, second cycle last - Zofran for nausea vomiting DVT prop Lovenox and Warfarin. Code Status Full code Discussed Condition With Patient in the room all questions answered to the best of my abilities. Discharge Planning Discharge Home on [facility] Jt Pereira MD May 24, 2017 09:37
[2017-05-24] MEDS ORDERED: POTA20TA5 PO (09:43)
[2017-05-24] MEDS ORDERED: ENOX80P SQ (09:43)
[2017-05-24] MEDS ORDERED: FURO40TA PO (09:43)
[2017-05-24] MEDS ORDERED: MAGN400T3 PO (09:43)
[2017-05-24] MEDS ORDERED: COUM5TAB PO (09:43)
[2017-05-24] MEDS ORDERED: ULTR50TA5 PO (09:43)
--- NOTE | 2017-05-24 09:49 | HHI.FF ---
Face to Face Verification Diagnosis: (1) Lung nodule seen on imaging study (2) Anasarca (3) DVT (deep venous thrombosis) (4) Endometrial carcinoma (5) Metastasis (6) Pleural effusion, left Physical Therapy Order: Evaluate and Treat, Improve ambulation, Strength and gait training Home Health Nursing Order: Medical education Signs/symptoms of disease process Medication education-adverse effect Nursing assessment with vital signs Instructions: DAILY PT AND INR TITRATE WARFARIN WITH PCP AND LABOR RELATIONS ANALYST. CONTINUE DAILY LOVENOX 70 UNITS BID AND HOLD LOVENOX ONCE INR IN 2 OR OVER CONTINUE WARFARIN 5 MG DAILY PT AND INR DAILY AND HOLD WARFARIN ONCE INR IN 3 OR OVER I have seen patient Yolanda Cross on 05/24/17. My clinical findings support the need for the requested home health care services because: Ltd mobility - disease progression Deconditioned w/ increased weakness I certify that my clinical findings support that this patient is homebound because: Unsafe to leave home unassisted Jt Pereira MD May 24, 2017 09:49
--- NOTE | 2017-05-24 09:51 | HHI.DS ---
Discharge Summary Admission Date May 20, 2017 at 17:25 Discharge Date: May 24, 2017 Admitting Diagnosis malignant pleural effusion causing dyspnea (1) Pleural effusion, left ICD Code: J90 Diagnosis: Principal (2) Shortness of breath at rest ICD Code: R06.02 Diagnosis: Principal (3) Generalized weakness ICD Code: R53.1 Diagnosis: Principal (4) Metastasis ICD Code: C79.9 Diagnosis: Principal Procedures None Brief History - From Admission Patient is a 71 year old with primary medical history of uterine cancer, peritoneal carcinomatosis, adenocarcinoma of the left lung, malignant pleural effusion who came into the hospital secondary to increasing shortness of breath and bilateral lower extremity edema. Patient states that for the past week her shortness of breath has increased but this morning he woke up with her bilateral legs very swollen that she needs to cut her shorts. This concerned her vision that she went to the hospital. Patient is on chemotherapy, followed by Dr. Peña in out patient oncology. States she started chemotherapy 3 weeks ago and her second cycle was last , 05/18/17. She states that her highest temp this morning was 99.4. She usually checks her temperature twice a day. She complains of bilateral lower extremity pain, radiating towards her waist, dull and noted to have ecchymotic area on the left inferolateral side of the lower leg. Reports chronic nausea, vomiting but states it has improved with her new medication that she puts under her tongue was given by Dr. Peña. Reports occassional "very tiny amount of blood when I pee." Otherwise, denies chest pain, palpitations, diarrhea, abdominal pain, cramping, dysuria. Stopped taking ASA 81 mg 2 days ago. CBC/BMP: 05/23/17 0600 05/24/17 0633 Significant Findings Laboratory Tests Test 05/21/17 05/22/17 05/23/17 05/23/17 10:28 05:20 06:00 15:30 Activated Partial 55.1 SEC 69.6 SEC Thromboplast Time (24.3-30.1) (24.3-30.1) White Blood Count 2.3 TH/MM3 (4.0-11.0) Red Blood Count 3.08 MIL/MM3 (4.00-5.30) Hemoglobin 8.7 GM/DL (11.6-15.3) Hematocrit 25.7 % (35.0-46.0) Red Cell Distribution Width 17.7 % (11.6-17.2) Neutrophils (%) (Auto) 76.5 % (16.0-70.0) Neutrophils # (Auto) 1.7 TH/MM3 (1.8-7.7) Lymphocytes # (Auto) 0.4 TH/MM3 (1.0-4.8) Potassium Level 3.1 MEQ/L (3.5-5.1) Creatinine 0.46 MG/DL (0.50-1.00) Calcium Level 7.9 MG/DL (8.5-10.1) Total Protein 5.7 GM/DL (6.4-8.2) Albumin 1.8 GM/DL (3.4-5.0) Magnesium Level 1.3 MG/DL (1.5-2.5) Imaging Last Impressions Lung Scan- Nuclear Medicine 05/21/17 1336 Signed Impressions: Service Date/Time: Sunday, May 21, 2017 12:55 - CONCLUSION: Strictly indeterminate scan, however tenting toward relatively low likelihood of pulmonary embolism given the constellation of findings. Aleks Shelton MD Thoracentesis Ultrasound 05/21/17 0000 Signed Impressions: Service Date/Time: Saturday, May 20, 2017 20:13 - CONCLUSION: Uncomplicated ultrasound guided thoracentesis. Aleks Shelton MD Chest X-Ray 05/21/17 0000 Signed Impressions: Service Date/Time: Sunday, May 21, 2017 14:48 - CONCLUSION: No pneumothorax Aleks Shelton MD Lower Extremity Ultrasound 05/20/17 0000 Signed Impressions: Service Date/Time: Saturday, May 20, 2017 19:54 - CONCLUSION: 1. Extensive occlusive DVT of the left lower extremity. 2. Extensive nonocclusive thrombus of the right lower extremity. Occlusive thrombus in the right peroneal and posterior tibial veins. Can David MD PE at Discharge GENERAL: Well developed, in no acute distress. SKIN: Ecchymotic area left lateral lower leg. warm and dry. HEAD: Atraumatic. Normocephalic. No temporal or scalp tenderness. EYES: Pupils equal round and reactive. Extraocular motions intact. No scleral icterus. No injection or drainage. ENT: Nose without bleeding. Throat without erythema. Uvula midline. Airway patent. NECK: Trachea midline. Supple. CARDIOVASCULAR: Regular rate and rhythm without murmurs, gallops, or rubs. RESPIRATORY: No wheezes, rales, or rhonchi. Left lower lobe, diminished. GASTROINTESTINAL: Abdomen soft, non-tender, nondistended. No guarding. Bowel sounds active 4. MUSCULOSKELETAL: Extremities without clubbing, cyanosis. Improving leg Edema. NEUROLOGICAL: Awake and alert. Cranial nerves II through XII intact. Motor and sensory grossly within normal limits. Normal speech. Hospital Course Patient is a 71 year old with primary medical history of uterine cancer, peritoneal carcinomatosis, adenocarcinoma of the left lung, malignant pleural effusion who came into the hospital secondary to increasing shortness of breath and bilateral lower extremity edema. Patient states that for the past week her shortness of breath has increased but this morning he woke up with her bilateral legs very swollen that she needs to cut her shorts. This concerned her vision that she went to the hospital. Patient is on chemotherapy , followed by Dr. Peña in out patient oncology. States she started chemotherapy 3 weeks ago and her second cycle was last , 05/18/17. She states that her highest temp this morning was 99.4. She usually checks her temperature twice a day. She complains of bilateral lower extremity pain, radiating towards her waist, dull and noted to have ecchymotic area on the left inferolateral side of the lower leg. Reports chronic nausea, vomiting but states it has improved with her new medication that she puts under her tongue was given by Dr. Peña. Stopped taking ASA 81 mg 2 days ago. 05/21: Seen in her bedroom no nausea, vomit or diarrhea, receiving management as per Hematology and member service specialist, found with Extensive Bilateral DVT, probable Pulmonary Emboli asked for CT Angiogram by member service specialist. 05/22: Stable in her bedroom, member service specialist following, with diagnosis of Metastatic Uterine/Endometrial Adenocarcinoma with malignant Ascites and Malignant left sided pleural effusion receiving palliative chemotherapy with Carboplatin and Taxol, Complicated by Extensive Lower extremity Deep venous thrombosis/PE, recommended to continue with Unfractionated Heparin until Thoracentesis and then start Coumadin Followed by customer contact specialist Doctor Maximilian recommended periodical CXR. 05/23: Seen in her bedroom no new issues Improving her bilateral swollen legs, okay to discharge from Oncology standpoint, she has today Electrolyte derangement with Potassium level 3.1 and magnesium level 1.3 given replacement and following. 05/24: Stable in her bedroom, improving condition markedly, discussed with her about Salt consumption she will need to stop taking salt to avoid this high overload state, seen with nurse Mr. Fink in the room no new issues. she will go home with [facility] [place] Assessment and Plan Patient is a 71 year old with primary medical history of uterine cancer, peritoneal carcinomatosis, adenocarcinoma of the left lung, malignant pleural effusion who came into the hospital secondary to increasing shortness of breath and bilateral lower extremity edema. Recurrent malignant left lung pleural effusion with increasing shortness of breath asked for Thoracentesis not yet performed. Metastatic cancer - Chest x-ray showed increase in size of left pleural effusion, involving approximately 50% of the left thorax - Furosemide 40mg IV, KCL - Status post Thoracentesis, as per Oncology started on Coumadin and recommended for discharge home will go on Lovenox and Warfarin. - Nebulizer treatments and O2 nc. Maintain >90% O2 Sat -as per customer contact specialist follow up with CXR regularly, Bilateral lower extremity edema Anasarca - Continue diuretics as outpatient. Improving, Discussed with patient and recommended to stop taking salt will continue diuretics and replace Potassium and magnesium follow by PCP and Oncology. Extensive bilateral DVT started on Heparin drip, asked for CT angiogram by member service specialist. changed to Lovenox and Warfarin and discharge today but was not possible due to Electrolyte derangement will replace and discharge home on [facility] [place] Uterine cancer/abdominal carcinomatosis - Patient just had chemotherapy started 3 weeks ago, second cycle last - Zofran for nausea vomiting DVT prop Lovenox and Warfarin. Code Status Full code Discussed Condition With Patient in the room all questions answered to the best of my abilities. Discharge Planning Discharge Home on [facility] Pt Condition on Discharge: Stable Discharge Disposition: Disch w/ Home Health Serv Discharge Time: > 30 minutes Discharge Instructions DIET: Follow Instructions for: Heart Healthy Diet Activities you can perform: Regular-No Restrictions Jt Pereira MD May 24, 2017 09:51
[2017-05-24 12:00] VITALS: BP 137/68; PULSE 100; RESP 18; TEMP 97.3; O2SAT 92
--- NOTE | 2017-05-24 13:44 | PD.ONC.PN ---
Subjective Subjective Remarks Afebrile overnight Pt packing her things, states she's going home today. States the nausea is mildly improved, but would like to make sure she has nausea medication to take at home. Denies acute complaints. Objective Data Date Time Temp Pulse Resp B/P Pulse Ox O2 Delivery O2 Flow Rate FiO2 05/24/17 12:00 97.3 100 18 137/68 92 05/24/17 09:57 18 05/24/17 08:00 97.6 100 17 128/68 94 05/24/17 04:00 97.4 91 17 120/71 97 05/24/17 00:00 97.0 108 17 122/73 97 05/23/17 21:00 107 05/23/17 20:00 98.4 110 17 130/80 97 05/23/17 18:09 05/23/17 16:00 98.0 106 17 120/69 96 Result Diagram: 05/23/17 0600 05/24/17 0633 Laboratory Results Laboratory Tests Test 05/23/17 05/23/17 05/24/17 15:30 18:36 06:33 Phosphorus Level 2.6 MG/DL Magnesium Level 1.3 MG/DL 1.8 MG/DL Potassium Level 3.6 MEQ/L 3.6 MEQ/L Prothrombin Time 11.0 SEC Prothromb Time International 1.0 RATIO Ratio Objective Remarks GENERAL: Pleasant elderly female walking around her room in no distress. SKIN: Warm and dry. HEAD: Normocephalic. EYES: No injection or drainage. NECK: Supple, trachea midline. CARDIOVASCULAR: Regular rate and rhythm RESPIRATORY: Clear posteriorly. Diminished to bases. GASTROINTESTINAL: Abdomen soft, non-tender, nondistended. EXTREMITIES: No cyanosis. BLE with edema, R>L MUSCULOSKELETAL: Adequate muscle tone. NEUROLOGICAL: No obvious focal deficit. Awake, alert, and oriented x3. Assessment/Plan Problem List: (1) Pleural effusion, left Status: Acute Plan: --s/p thoracentesis. --malignant left sided pleural effusion (2) DVT (deep venous thrombosis) Status: Acute Plan: --on Lovenox twice a day --Ultrasound of the lower extremities --> extensive occlusive DVT of the left lower extremity and extensive nonocclusive thrombus of the right lower extremity and occlusive thrombus in the right peroneal and below knee veins. She has bilateral lower extremity deep venous thromboses. --V/Q scan--low probability of PE (3) Endometrial carcinoma Status: Acute Plan: --metastatic uterine / endometrial carcinoma / adenocarcinoma. --had a presentation of malignant ascites associated with hypermetabolic activity involving the omentum. also has malignant pleural effusions. --on palliative chemotherapy with carboplatin and Taxol. pending a consultation with gynecologic oncologist, Dr. Frederick. --had a second cycle of carboplatin and Taxol on May 18. Assessment 71y/o female with malignant pleural effusion and history of metastatic adenocarcinoma. h/o Metastatic endometrial adenocarcinoma. Malignant left pleural effusion.Arthritis. Migraine headaches. Peritoneal carcinomatosis. Rheumatoid arthritis. Vertigo. New bilateral lower extremity deep venous thromboses. Appendectomy. Port placement. Tonsillectomy. Therapeutic and diagnostic left-sided thoracentesis. Plan 1. Patient being discharged today. We'll have her follow-up in clinic on Monday for INR 2. Continue therapeutic Lovenox dosing until INR is therapeutic with Coumadin. 3. I have written a prescription for ondansetron for the patient to take home to be filled. 4. Follow-up in clinic. Problem Qualifiers (1) DVT (deep venous thrombosis): Qualified Code: I82.493 - Acute deep vein thrombosis (DVT) of other specified vein of both lower extremities Ursula Menjivar May 24, 2017 13:44
[2017-05-24] MEDS ORDERED: WARFARIN SOD 5 MG TAB PO ONE (16:00)
== END 2017-05-24 12:24 | disposition home or self-care (01) | DRG 181 ==
LOC: NEPE 16:04 → NEDA 17:25 → N07B 20:45
PROVIDERS: ADMIT Internal Medicine; ATTEND Internal Medicine
PROC: 0W9B3ZZ Drainage of Left Pleural Cavity, Percutaneous Approach (ICD-10-PCS; principal; 2017-05-21)
DX: C34.92 Malignant neoplasm of unspecified part of left bronchus or lung (principal); J91.0 Malignant pleural effusion; I82.413 Acute embolism and thrombosis of femoral vein, bilateral; C78.6 Secondary malignant neoplasm of retroperitoneum and peritoneum; C79.82 Secondary malignant neoplasm of genital organs; C55 Malignant neoplasm of uterus, part unspecified; D64.9 Anemia, unspecified; M06.9 Rheumatoid arthritis, unspecified; R60.0 Localized edema; Z92.21 Personal history of antineoplastic chemotherapy; Z79.82 Long term (current) use of aspirin; C80.1 Malignant (primary) neoplasm, unspecified
CPT/HCPCS: 32555; 36430; 36591; 71010; 78582; 80048; 80053; 83735; 84100; 84132; 85025; 85610; 85730; 86850; 86900; 86901; 86920; 93005; 93970; 96367; 96375; 96413; 96415; 96417; 99214; 99285; A9540; A9567; C1729; G0463; J0780; J1100; J1626; J1642; J1644; J1650; J1940; J2405; J2550; J3475; J3480; J7030; J7040; J7050; J9045; J9267; P9016

== ENCOUNTER 2017-09-05 10:11 | Day surgery (SDC) | payer MEDICARE ==
[~2017-09-05 10:11] MED LIST changes: +COUM5TAB PO; +ENOX80P SQ; +FURO40TA PO; -GINK60TA10 PO; +MAGN400T3 PO; +POTA20TA5 PO; +TRAM50 PO
[2017-09-05 11:02] VITALS: BP 128/67; PULSE 107; RESP 16; TEMP 98.3; O2SAT 99
--- NOTE | 2017-09-05 11:59 | RADRPT ---
EXAM DATE/TIME: 09/05/2017 10:48 [facility] COMPARISON: No previous studies available for comparison. EXTERNAL COMPARISON: [facility], PET/CT TUMOR, Aug 11 2017 INDICATIONS : Left pleural effusion. MEDICAL HISTORY : Arthritis. Vertigo. Migraines. Emphysema. Asthma. Uterine cancer with mets. Abdominal carcinomatosis. Left lung adenocarcinoma. Malignant pleural effusion. Chemotherapy. SURGICAL HISTORY : Tonsillectomy. ENCOUNTER: Subsequent ACUITY: 1 day PAIN SCORE: 0/10 LOCATION: Right chest FLUID: Total volume of 1000 cc of cloudy, red fluid was removed. Fluid was discarded. Thoracentesis was therapeutic only. TECHNIQUE: 1. Ultrasound guidance for thoracentesis. 2. Thoracentesis. The risks, benefits, and alternatives to ultrasound guided thoracentesis were explained to the patien t in lay simple terms, including the risk of bleeding and infection. Written and verbal informed con sent was obtained. Appropriate area for thoracentesis was marked under ultrasound guidance with the patient in the uprig ht position. Overlying skin was prepped and draped in the usual sterile fashion and with local anest hetic, a dermatotomy was made with an 11 blade scalpel. A 6 Tajik thoracentesis catheter was placed in the pleural space and fluid was removed. Catheter was then removed and a sterile dressing applie d. There were no immediate complications. The patient tolerated the procedure well and the left the ultrasound suite in stable condition. Chest radiograph is to be obtained. CONCLUSION: Uncomplicated ultrasound guided thoracentesis. Christopher Angeles MD on September 05, 2017 at 11:57 Board Certified Radiologist. This report was verified electronically.
[2017-09-05 12:15] VITALS: BP 143/73; PULSE 99; RESP 20; TEMP 98.4; O2SAT 98
[2017-09-05 12:30] VITALS: BP 125/69; PULSE 102; RESP 18; O2SAT 97
--- NOTE | 2017-09-05 12:31 | RADRPT ---
EXAM DATE/TIME: 09/05/2017 12:10 [facility] COMPARISON: CHEST EXPIRATION ONLY, May 21, 2017, 14:48. INDICATIONS : Post left side thoracentesis. MEDICAL HISTORY : Emphysema. Asthma. Uterine cancer with mets. Abdominal carcinomatosis. Left lung adenocarcinoma. Alexa gnant pleural effusion. SURGICAL HISTORY : Infusaport. ENCOUNTER: Initial ACUITY: 1 day PAIN SCORE: 0/10 LOCATION: Left chest FINDINGS: A small left pleural effusion persists for thoracentesis. The lungs are less well-expanded. There is no evidence of pneumothorax. Heart and mediastinal structures are stable. CONCLUSION: 1. Decreased left pleural effusion following thoracentesis. 2. No evidence of pneumothorax. Ronald Garvey MD on September 05, 2017 at 12:28 Board Certified Radiologist. This report was verified electronically.
== END 2017-09-05 13:15 | disposition home or self-care (01) ==
LOC: HRAD 10:11 → HRIP 10:14 → HRAD 13:15
PROVIDERS: ATTEND Internal Medicine Hematology & Oncology
DX: J91.0 Malignant pleural effusion (principal); C34.92 Malignant neoplasm of unspecified part of left bronchus or lung; C54.1 Malignant neoplasm of endometrium; J45.909 Unspecified asthma, uncomplicated
CPT/HCPCS: 32555; 71010; C1729